=== PATIENT | male | born 1965 | race Caucasian/White ===

== ENCOUNTER 2019-12-14 23:02 | Inpatient (IN) | payer MEDICAID, SELFPAY ==
[2019-12-14 23:15] VITALS: BP 135/86; PULSE 85; RESP 22; TEMP 36.8; O2SAT 2; BMI 25.8
[2019-12-14 23:28] VITALS: O2SAT 90
--- NOTE | 2019-12-14 23:28 | PC.NURSE ---
PT REPORTING SOB FOR MONTHS- ON HOME 02 BUT HAS NOT HAD IT SINCE COVID PANDEMIC BEGAN, UNABLE TO GET DOCTORS APPOINTMENTS AND EVERYTHING IS MESSED UP PER PT REPORT. ALSO STATING NOT TAKING ANY OF HIS PRESCRIBED MEDS FOR MONTHS WELL. REPORTS FEVER/CHILLS FOR YEARS- ITS ALWAYS LIKE THIS SOB, RIGHT SIDED ABD PAIN VAGUE DETAILS. SKIN AND SCLERA VERY JAUNDICED.
--- NOTE | 2019-12-14 23:30 | PC.NURSE ---
UNABLE TO OBTAIN IV ACCESS- 2 RNS AND US GUIDED. MD PRUETT AWARE AWAITING EJ PLACEMENT. PT REPORTING HEADACHE NOW STATES GOING ON FOR A WHILE
--- NOTE | 2019-12-14 23:30 | ED.SOB ---
HPI - SOB/Dyspnea General Chief Complaint: Dyspnea Stated Complaint: Sob Time Seen by Provider: 12/14/19 23:30 History of Present Illness HPI Narrative: This is a 54-year-old male with significant past medical history of IVDA, COPD, hep C treatment who presents for worsening shortness of breath, fatigue, and weakness for the past 2 months and states he has not been taking any of his medications. when asked about the yellow color of his skin and his eyes he states that he has not noticed because he can barely stand to look in the mirror let alone notice what color his skin is . He states he has been having chills and that his right side of his abdomen is painful and is causing a lot of pressure. In addition, patient reports a decrease in appetite but denies any diarrhea or urinary symptoms. Related Data Home Medications Medication Instructions Recorded Confirmed Unobtainable 12/15/19 12/15/19 Allergies Allergy/AdvReac Type Severity Reaction Status Date / Time No Known Allergies Allergy Verified 12/14/19 23:31 Review of Systems Review of Systems: Pertinent positives and negatives as stated in HPI 10 point review systems is otherwise negative. [facility] Past Medical History Source: nursing notes reviewed Medical History COPD (chronic obstructive pulmonary disease) Hx of hepatitis C Hx of hypertensive heart disease Social History Social History Alcohol intake: never Smoking Status: Current every day smoker Advance Directives: No Advance Directives Information Provided: No Physical Exam Vital Signs: Vital Signs: Vital Signs Temp Pulse Resp BP Pulse Ox 12/15/19 03:39 90 38 H 115/93 H 96 12/15/19 01:33 97.9 F 94 22 H 182/78 H 89 L 12/14/19 23:28 90 L 12/14/19 23:15 98.3 F 85 22 H 135/86 2 L Body Mass Index 25.8 VITAL SIGNS: Reviewed. GENERAL: Appears older than stated age, mild cachexia, moderate distress. HEAD: Normocephalic/atraumatic, EYES: PERRLA, EOMI intact without pain, no nystagmus/pallor, +icterus noted EARS: Ext canals without abnormality, TMs non-bulging and non-erythematous NOSE: Nares patent bilateral OROPHARYNX: no oral lesions noted, posterior pharynx clear and non-erythematous without noted tonsillar enlargement/erythema/exudates NECK: Supple, no adenopathy LUNGS: decrease breath sounds on the left without auscultated wheezing. No adventitious sounds or accessory muscle use. SpO2<89%RA> CARDIOVASCULAR: Regular rate and rhythm without noted murmurs, no JVD or lower extremity edema. ABDOMEN: Soft, right-sided tenderness, non-distended with decreased bowel sounds. No rigidity. No guarding. No palpable masses or hernias noted MUSCULOSKELETAL: No tenderness, deformities, or effusions noted on gross inspection. EXTREMITIES: No cyanosis, clubbing or edema. SKIN: Inspection of the skin reveals no rashes, ulcerations, pallor, or petechiae. +jaundice NEUROLOGIC: Alert and oriented x 4. Strength and sensation to light touch were grossly intact Course Course Course Narrative: This is a 54-year-old male with history and clinical presentation suggestive of possible pneumonia, or intra-abdominal infection and was approached as a sepsis patient with labs, fluids, antibiotics, blood cultures, and lactic acid being ordered. On review of all investigations there is a significant leukocytosis as well as a hyperbilirubinemia with a chest x-ray reporting bilateral infiltrates, but significant changes noted in the left lung as well as multiple lesions noted within the liver. Patient is oxygenating at approximately 96-97% on 100% non-rebreather. On review of CT imaging there is conflict, masslike soft tissue density involving the right hilum /mediastinum with mass effect on the SVC and proximal vessels of the right lung. In addition, there is extensive metastatic disease in the liver with periportal lymphadenopathy. The results of the CT findings were discussed with the patient at bedside. This case was discussed with the inpatient hospitalist team who will admit the patient. MDM - SOB/Dyspnea Lab Data Result diagrams: 12/15/19 00:17 12/15/19 00:17 Labs: Lab Results 12/15/19 12/15/19 12/15/19 Range/Units 00:17 00:17 00:17 WBC 16.8 H (4.8-10.8) X10*3/uL RBC 4.18 L (4.60-5.80) X10*6/uL Hgb 13.2 L (14.0-18.0) g/dl Hct 38.6 L (42-52) % MCV 92.3 (80-98) fL MCH 31.6 (27.0-33.0) pg MCHC 34.2 (31.0-36.0) g/dl RDW 18.0 H (11.0-16.0) % Plt Count 249 (160-400) X10*3/uL MPV 11.1 (9.4-12.4) fL Immature Gran % (Auto) 1.7 H (0.0-0.4) % Neut % (Auto) 86.8 H (45-73) % Lymph % (Auto) 5.1 L (20-40) % [place] % (Auto) 6.1 (2-11) % Eos % (Auto) 0.1 (0-4) % Baso % (Auto) 0.2 (0-2) % Lymph # (Auto) 0.9 L (1.2-4.9) X10*3/uL [place] # (Auto) 1.0 (0.1-1.2) X10*3/uL Eos # (Auto) 0.0 (0.0-0.4) X10*3/uL Baso # (Auto) 0.0 (0.0-0.2) X10*3/uL Abs Immat Gran (auto) 0.28 H (0.00-0.03) X10*3/uL Absolute Neuts (auto) 14.6 H (2.0-8.3) X10*3/uL Absolute Nucleated RBC 0.030 H (0.0-0.012) X10*3/uL Nucleated RBC % (auto) 0.2 (0.0-0.2) /100WBC ABG pH (7.35-7.45) ABG pCO2 (32-45) mmhg ABG pO2 (83-108) mmhg ABG HCO3 (22-26) mmol/l ABG O2 Saturation % ABG Base Excess Oxygen Given Sodium 136 (135-145) mmol/L Potassium 4.2 (3.3-5.1) mmol/l Chloride 100 (96-108) mmol/L Carbon Dioxide 22 (22-29) mmol/L Anion Gap 18 (12-20) BUN 26 H (9-16) mg/dL Creatinine 0.83 (0.5-1.4) mg/dL Estim Creat Clear Calc 153.2 Estimated GFR > 60 Random Glucose 248 H (60-115) mg/dL Lactic Acid 2.7 H* (0.5-2.0) mmol/L Calcium 8.3 L (8.4-10.2) mg/dL Total Bilirubin 9.9 H (0.0-1.0) mg/dL AST 71 H (5-37) U/L ALT 66 H (0-40) U/L Alkaline Phosphatase 443 H (39-117) U/L Total Protein 5.7 L (6.5-8.0) g/dL Albumin 3.1 L (3.5-5.0) g/dL Lipase 7 L (8-78) U/L Coronavirus (PCR) (Negative) 12/15/19 12/15/19 Range/Units 01:29 01:35 WBC (4.8-10.8) X10*3/uL RBC (4.60-5.80) X10*6/uL Hgb (14.0-18.0) g/dl Hct (42-52) % MCV (80-98) fL MCH (27.0-33.0) pg MCHC (31.0-36.0) g/dl RDW (11.0-16.0) % Plt Count (160-400) X10*3/uL MPV (9.4-12.4) fL Immature Gran % (Auto) (0.0-0.4) % Neut % (Auto) (45-73) % Lymph % (Auto) (20-40) % [place] % (Auto) (2-11) % Eos % (Auto) (0-4) % Baso % (Auto) (0-2) % Lymph # (Auto) (1.2-4.9) X10*3/uL [place] # (Auto) (0.1-1.2) X10*3/uL Eos # (Auto) (0.0-0.4) X10*3/uL Baso # (Auto) (0.0-0.2) X10*3/uL Abs Immat Gran (auto) (0.00-0.03) X10*3/uL Absolute Neuts (auto) (2.0-8.3) X10*3/uL Absolute Nucleated RBC (0.0-0.012) X10*3/uL Nucleated RBC % (auto) (0.0-0.2) /100WBC ABG pH 7.45 (7.35-7.45) ABG pCO2 28 L (32-45) mmhg ABG pO2 54 L (83-108) mmhg ABG HCO3 19 L (22-26) mmol/l ABG O2 Saturation 87.9 % ABG Base Excess -3.5 Oxygen Given 4 L Sodium (135-145) mmol/L Potassium (3.3-5.1) mmol/l Chloride (96-108) mmol/L Carbon Dioxide (22-29) mmol/L Anion Gap (12-20) BUN (9-16) mg/dL Creatinine (0.5-1.4) mg/dL Estim Creat Clear Calc Estimated GFR Random Glucose (60-115) mg/dL Lactic Acid (0.5-2.0) mmol/L Calcium (8.4-10.2) mg/dL Total Bilirubin (0.0-1.0) mg/dL AST (5-37) U/L ALT (0-40) U/L Alkaline Phosphatase (39-117) U/L Total Protein (6.5-8.0) g/dL Albumin (3.5-5.0) g/dL Lipase (8-78) U/L Coronavirus (PCR) NEGATIVE (Negative) ECG Data Attestation: I personally reviewed and interpreted this ECG as follows: Prior ECG tracings: available for review Interpretation: NSR, HR-74, no evidence of ischemia Discharge Plan Discharge Clinical Impression: Abdominal malignancy, Hypoxia Lung malignancy Qualifiers: Laterality: unspecified laterality Lung location: overlapping sites Qualified Code(s): C34.80 - Malignant neoplasm of overlapping sites of unspecified bronchus and lung Sepsis Qualifiers: Sepsis type: sepsis due to unspecified organism Sepsis acute organ dysfunction status: with acute organ dysfunction Severe sepsis acute organ dysfunction type: acute respiratory failure Acute respiratory failure type: with hypoxia Severe sepsis shock status: without septic shock Qualified Code(s): A41.9 - Sepsis, unspecified organism Patient Disposition: Admitted As Inpatient
--- NOTE | 2019-12-14 23:32 | XR_ITS ---
EXAMINATION: XR CHEST CLINICAL INFORMATION: Dyspnea COMPARISON: None TECHNIQUE: 2 views of the chest were obtained. FINDINGS: This exam is abnormal. There is opacity in the left lung Field parahilar extending into the lung zone. There is also small right-sided lateral opacity and perihilar opacities well. There is no effusion. No convincing evidence for failure IMPRESSION: Bilateral opacities left greater than right. Findings suggest infiltrates. Right hilar prominence may be due to parahilar opacity/infiltrate versus central adenopathy.. No effusion. Consider CT to fully evaluate
--- NOTE | 2019-12-14 23:33 | ECG_ITS ---
Test Reason : SOB Blood Pressure : / mmHG Vent. Rate : 074 BPM Atrial Rate : 074 BPM P-R Int : 130 ms QRS Dur : 086 ms QT Int : 394 ms P-R-T Axes : -21 -21 051 degrees QTc Int : 437 ms Normal sinus rhythm Low voltage QRS limb leads Nonspecific ST abnormality Abnormal ECG When compared with ECG of 06-SEP-2007 14:39, T wave amplitude has decreased in Lateral leads Heart rate has increased Referred By: Donna Oropeza Electronically Signed By:AL SMITH MD
[2019-12-14] MEDS: Albuterol/Iprat 2.5/0.5MG 3 ML AMPUL.NEB INHALE (23:54)
[2019-12-15] VITALS (25 sets, daily range): BP systolic 106–212; BP diastolic 60–108; PULSE 73–115; RESP 18–45; TEMP 36.2–37.4; O2SAT 88–98; BMI 25.9; BMI 28.2
--- NOTE | 2019-12-15 | XR_ITS ---
EXAMINATION: XR CHEST CLINICAL INFORMATION: Status post ET tube placement COMPARISON: Multiple CT scans of same day and chest x-ray of December 15, 2019 as well as. TECHNIQUE: AP portable view of the chest was obtained. FINDINGS: Since previous study endotracheal tube has been placed with its tip lying approximately 3 cm above the saul. There is increased airspace disease seen throughout the right lung which is more prominent than on the previous chest x-ray but appears probably similar to CT scan of of approximately 2:00 AM. The endotracheal tube tip does not appear to lie in a position that would obstruct the left mainstem bronchus. No pneumothorax is seen. Heart normal size. No evidence of pulmonary edema. Soft tissue density seen involving the right paratracheal and hilar regions. IMPRESSION: Endotracheal tube tip approximately 3 cm above the saul. Increasing diffuse airspace disease within the left lung. Right mediastinal soft tissue prominence.
--- NOTE | 2019-12-15 00:01 | PC.NURSE ---
PT OFF FLOOR TO CXRAY
[2019-12-15 00:26] LABS: Basophils Percent Auto 0.2 % (0-2); Eosinophils Percent Auto 0.1 % (0-4); Hematocrit 38.6 % (42-52); Hemoglobin 13.2 g/dl (14.0-18.0); Imm Gran Abs Auto 0.28 X10*3/uL (0.00-0.03); Imm Gran Pct Auto 1.7 % (0.0-0.4); Lymphocytes Absolute Auto 0.9 X10*3/uL (1.2-4.9); Lymphocytes Percent Auto 5.1 % (20-40); MANUAL DIFF FLAG NO; Mean Corpuscular HGB Conc 34.2 g/dl (31.0-36.0); Mean Corpuscular Hemoglobin 31.6 pg (27.0-33.0); Mean Corpuscular Volume 92.3 fL (80-98); Mean Platelet Volume 11.1 fL (9.4-12.4); Monocytes Percent Auto 6.1 % (2-11); NRBC Pct Auto 0.2 /100WBC (0.0-0.2); Neutrophils Absolute Auto 14.6 X10*3/uL (2.0-8.3); Neutrophils Percent Auto 86.8 % (45-73); Platelet Count 249 X10*3/uL (160-400); Red Blood Count 4.18 X10*6/uL (4.60-5.80); White Blood Count 16.8 X10*3/uL (4.8-10.8)
--- NOTE | 2019-12-15 00:29 | PC.NURSE ---
IV ACCESS OBTAINED. MEDICATED PER APR. PT REMAINS JAUNDICED AND TACHYPNEIC. REPORTING RIGHT SIDED ABD PAIN. TENDER TO TOUCH. AWAITING RESULTS AND POSSIBLE ADMISSION.
[2019-12-15] MEDS: methylPREDNISolone Sod Succ/PF 125 MG/2 ML VIAL IVPUSH (00:48)
[2019-12-15 00:53] LABS: Alanine Aminotransferase 66 U/L (0-40); Albumin Level 3.1 g/dL (3.5-5.0); Alkaline Phosphatase 443 U/L (39-117); Anion Gap 18 (12-20); Aspartate Amino Transferase 71 U/L (5-37); Bilirubin Total 9.9 mg/dL (0.0-1.0); Blood Urea Nitrogen 26 mg/dL (9-16); Calcium 8.3 mg/dL (8.4-10.2); Carbon Dioxide 22 mmol/L (22-29); Chloride 100 mmol/L (96-108); Creatinine Clr Calc Pharmacy 153.2; Estimated Glomerular Filt Rate > 60; Glucose Random 248 mg/dL (60-115); Lipase 7 U/L (8-78); Potassium 4.2 mmol/l (3.3-5.1); Sodium 136 mmol/L (135-145); Total Protein 5.7 g/dL (6.5-8.0)
--- NOTE | 2019-12-15 00:54 | CT_ITS ---
EXAMINATION: CONTRAST-ENHANCED CT OF THE CHEST; CONTRAST-ENHANCED CT OF THE ABDOMEN AND PELVIS INDICATION: Dyspnea, infiltrates, abdominal pain COMPARISON: Chest x-ray 12/15/2019 TECHNIQUE: 85 mL Omnipaque 350 IV contrast was utilized. Multidetector helical imaging was performed through the chest, abdomen, and pelvis. Coronal and sagittal reformatted images were created at the technologist workstation. DLP: 950 mGy-cm DOSE LOWERING TECHNIQUES: This CT examination was performed using dose optimization techniques as appropriate, variously including the following: - Automated exposure control - Adjustment of mA and/or kV according to patient size (this includes techniques or standardized protocols for targeted exams were dose is matched to indication/reason for exam; i.e. extremities or head) - Use of iterative reconstruction technique FINDINGS: Chest: Limited detailed evaluation of the lung parenchyma due to respiratory motion artifact. There is extensive heterogeneous groundglass consolidation throughout the left lung. There is confluent masslike soft tissue density involving the right hilum which appears contiguous with the superior left lower lobe as well as mediastinal adenopathy in the paratracheal, subcarinal, and prevascular regions. AP window lymphadenopathy is also noted. Given the irregular shape, this is difficult to discretely measure; in the axial plane on image 24/62 the extent of soft tissue measures approximately 11.5 x 7.8 cm. AP window lymphadenopathy measures 2.4 x 1.5 cm. Overall appearance is most consistent with malignancy There is mass effect on the SVC which demonstrates narrowing though the vessel appears to remain patent. There is mass effect on the central pulmonary vasculature of the right lung, with inadequate assessment for possible emboli due to bolus timing. Cardiac size is within normal limits; no pericardial effusion. The visualized thyroid gland is unremarkable. No axillary lymphadenopathy is present. Abdomen/Pelvis: There are innumerable mildly hypoattenuating masses throughout the enlarged liver, favoring metastatic disease. Largest of these lesions appear to measure up to approximately 6 cm. The gallbladder appears partially contracted. The spleen, pancreas, and adrenal glands are within normal limits. Bilateral nephrograms are symmetric. No hydronephrosis. No obstructing renal or ureteral calculi are present. The urinary bladder is unremarkable. The prostate and seminal vesicles are unremarkable. The small and large bowel are unremarkable without evidence of obstruction or pericolonic inflammatory change. The appendix is unremarkable.There is a small amount of pelvic free fluid. Scattered atherosclerotic calcifications. There is periportal lymphadenopathy. No acute osseous findings. IMPRESSION: 1. Confluent, masslike soft tissue density involving the right hilum, adjacent mediastinum, and likely superior right lower lobe as described above. Appearance is most consistent with malignancy and jimi metastases. There is mass effect on the SVC and proximal vessels of the the right lung. 2. Extensive metastatic disease in the liver. 3. Periportal lymphadenopathy. 4. Extensive heterogeneous groundglass opacity of the left lung, which could be secondary to infection or asymmetric edema. 5. Small amount of pelvic free fluid.
[2019-12-15 00:56] LABS: Lactic Acid 2.7 mmol/L (0.5-2.0)
[2019-12-15] MEDS: Albuterol/Iprat 2.5/0.5MG 3 ML AMPUL.NEB INHALE ×5 (01:12→19:22)
--- NOTE | 2019-12-15 01:15 | PC.NURSE ---
PT VOMITING BILIOUS LIQUID. MD NOTIFIED AWAITING ORDER FOR ZOFRAN.
[2019-12-15] MEDS: Piperacillin Sodium/Tazobactam 3.375 GM in 0.9 % Sodium Chloride 50 ML IV ×4 (01:21→18:48)
[2019-12-15] MEDS: SODIUM CHLORIDE 1000 ML IV (01:22)
--- NOTE | 2019-12-15 01:30 | PC.NURSE ---
PT SWABBED FOR COVID SPECIMEN SENT TO LAB. IVF AND ABX HUNG AND INFUSING WITHOUT DIFFICULTY. RT AT BEDSIDE FOR NEB RX AND ABGS. PT REMAINS TACHYPNEIC, FREQUENTLY CHANGING POSITIONS FOR COMFORT AND EASE OF BREATHING.
--- NOTE | 2019-12-15 01:47 | PC.NURSE ---
PT STATES HE HAS NOT TAKEN HIS PRESCRIBED MEDS IN MONTHS- WILL NOT LIST PRESCRIPTION MEDS FOR RN.
[2019-12-15 01:54] LABS: Pt Ventilation O2% 4 L
[2019-12-15 01:55] LABS: ABG PCO2 28 mmhg (32-45); Base Excess ABG -3.5; HCO3 ABG 19 mmol/l (22-26); PO2 ABG 54 mmhg (83-108); pH ABG 7.45 (7.35-7.45)
[2019-12-15 01:56] LABS: Oxygen Saturation ABG 87.9 %
--- NOTE | 2019-12-15 02:00 | PC.NURSE ---
PT OFF TO CT.
[2019-12-15 02:23] LABS: Reflex Lactate? Lactic Acid Added
[2019-12-15] MEDS: iohexoL 350 MG/ML 100 ML INFUS..BTL 85 ML IV (02:29)
[2019-12-15 02:34] LABS: SARS COV2 PCR INHOUSE NEGATIVE (Negative)
--- NOTE | 2019-12-15 03:41 | PC.NURSE ---
OFFERED PT TO CHANGE INTO HOSPITAL ATTIRE PT HAS BEEN TOPLESS FOR ENTIRE STAY THUS FAR, PT REFUSED. GIVEN ADDITIONAL WARM BLANKETS AND ICE CHIPS. SITTING UP IN BED WITH HEAD ON HOSPITAL TABLE, REPORTS POSITION OF COMFORT FOR HIM. NSR ON WIRE SPOOLER, REMAINS TACHYPNEIC, SPO2 96% ON NON REBREATHER.AWAITING ADMISSION AWARE OF PLAN OF CARE.
--- NOTE | 2019-12-15 03:57 | PC.NURSE ---
HOSPITALIST AT BEDSIDE FOR CONSULT. AWAITING BED ASSIGNMENT.
--- NOTE | 2019-12-15 04:36 | PM.IMHP ---
History of Present Illness Date of Service: 12/15/19 Chief Complaint: Dyspnea 34-year-old male whose past medical history of COPD And hep C who presents to the hospital with complaints of dyspnea. Patient reports that he has been feeling short of breath for Months as well as having abdominal pain nausea and vomiting. Patient reports that he has been so weak that he was on been on able to get out of bed with low appetite and low p.o. intake. He is significantly constipated. Patient's belly pain is in the right upper quadrant nonradiating has no fever or chills. he is also complaining of urinary retention as well as urgency. patient denies any cough or sputum production at this time. on arrival to the ED patient hemodynamically stable with a respiratory rate of 22 and satting 89% on room air. Labs are significant for WBC count of 16.8, pH of 7.45, artery of pCO2 of 28, lactic acid of 2.7, calcium of 8.3, total bili of 9.9, AST of 71 ALT of 66, alk-phos of 443 past medical history: COPD, hepatitis-C, patient claims was treated, IV drug user past surgical history: is mostly orthopedic surgery family history: Denies social history: Comes from home, former smoker reports that he has quit few months ago due to out of is going on with his body right now, denies alcohol use, smokes heroin daily Review of Systems Review of Systems: Yes all other systems are reviewed and are negative [facility] Medical History COPD (chronic obstructive pulmonary disease) Hx of hepatitis C Hx of hypertensive heart disease Social History Alcohol intake: never Smoking Status: Current every day smoker Advance Directives: No Advance Directives Information Provided: No Meds Allergies Allergy/AdvReac Type Severity Reaction Status Date / Time No Known Allergies Allergy Verified 12/14/19 23:31 Home Medications Medication Instructions Recorded Confirmed Type Unobtainable 12/15/19 12/15/19 History Physical Exam Vital Signs and Narrative: Vital Signs: Last Vital Signs Temp 97.9 F 12/15/19 01:33 Pulse 90 12/15/19 03:39 Resp 38 H 12/15/19 03:39 BP 115/93 H 12/15/19 03:39 Pulse Ox 96 12/15/19 03:39 Body Mass Index 25.8 Const: General: cooperative, no acute distress, ill appearing and tired appearing Nutritional Appearance: cachectic Orientation/consciousness: patient oriented x3 Eyes: General: appearance normal, both eyes and all related structures Pupils: Equal, round and reactive pupils present Resp: Other: tachypnea Effort & Inspection: able to speak in complete sentences Auscultation: crackles Cardio: Rate: regular rate Rhythm: regular rhythm GI: Palpation (GI): Soft to palpation Auscultation: normal bowel sounds Skin: General skin exam: no rashes or lesions noted and jaundice Neuro: General: patient oriented x3 Cranial nerves: Yes Equal, round and reactive pupils present Cognition (Neuro): normal cognition Extrem: General: Yes normal to inspection and Yes no pedal edema Results Labs Labs: Laboratory Tests 12/15/19 12/15/19 12/15/19 00:17 00:17 00:17 WBC 16.8 H RBC 4.18 L Hgb 13.2 L Hct 38.6 L MCV 92.3 MCH 31.6 MCHC 34.2 RDW 18.0 H Plt Count 249 MPV 11.1 Immature Gran % (Auto) 1.7 H Neut % (Auto) 86.8 H Lymph % (Auto) 5.1 L [place] % (Auto) 6.1 Eos % (Auto) 0.1 Baso % (Auto) 0.2 Lymph # (Auto) 0.9 L [place] # (Auto) 1.0 Eos # (Auto) 0.0 Baso # (Auto) 0.0 Abs Immat Gran (auto) 0.28 H Absolute Neuts (auto) 14.6 H Absolute Nucleated RBC 0.030 H Nucleated RBC % (auto) 0.2 ABG pH ABG pCO2 ABG pO2 ABG HCO3 ABG O2 Saturation ABG Base Excess Oxygen Given Sodium 136 Potassium 4.2 Chloride 100 Carbon Dioxide 22 Anion Gap 18 BUN 26 H Creatinine 0.83 Estim Creat Clear Calc 153.2 Estimated GFR > 60 Random Glucose 248 H Lactic Acid 2.7 H* Calcium 8.3 L Total Bilirubin 9.9 H AST 71 H ALT 66 H Alkaline Phosphatase 443 H Total Protein 5.7 L Albumin 3.1 L Lipase 7 L Coronavirus (PCR) 12/15/19 12/15/19 01:29 01:35 WBC RBC Hgb Hct MCV MCH MCHC RDW Plt Count MPV Immature Gran % (Auto) Neut % (Auto) Lymph % (Auto) [place] % (Auto) Eos % (Auto) Baso % (Auto) Lymph # (Auto) [place] # (Auto) Eos # (Auto) Baso # (Auto) Abs Immat Gran (auto) Absolute Neuts (auto) Absolute Nucleated RBC Nucleated RBC % (auto) ABG pH 7.45 ABG pCO2 28 L ABG pO2 54 L ABG HCO3 19 L ABG O2 Saturation 87.9 ABG Base Excess -3.5 Oxygen Given 4 L Sodium Potassium Chloride Carbon Dioxide Anion Gap BUN Creatinine Estim Creat Clear Calc Estimated GFR Random Glucose Lactic Acid Calcium Total Bilirubin AST ALT Alkaline Phosphatase Total Protein Albumin Lipase Coronavirus (PCR) NEGATIVE Imaging CT scan - chest: Radiologist's impression: IMPRESSION: 1. Confluent, masslike soft tissue density involving the right hilum, adjacent mediastinum, and likely superior right lower lobe as described above. Appearance is most consistent with malignancy and jimi metastases. There is mass effect on the SVC and proximal vessels of the the right lung. 2. Extensive metastatic disease in the liver. 3. Periportal lymphadenopathy. 4. Extensive heterogeneous groundglass opacity of the left lung, which could be secondary to infection or asymmetric edema. 5. Small amount of pelvic free fluid. Assessment and Plan (1) Sepsis: Qualifiers: Acute respiratory failure type: with hypoxia Sepsis acute organ dysfunction status: with acute organ dysfunction Sepsis type: sepsis due to unspecified organism Severe sepsis acute organ dysfunction type: acute respiratory failure Severe sepsis shock status: without septic shock Qualified Code(s): A41.9 - Sepsis, unspecified organism; R65.20 - Severe sepsis without septic shock; J96.01 - Acute respiratory failure with hypoxia Status: Acute (2) Abdominal malignancy: Status: Acute (3) Hypoxia: Status: Acute (4) Lung malignancy: Qualifiers: Laterality: unspecified laterality Lung location: overlapping sites Qualified Code(s): C34.80 - Malignant neoplasm of overlapping sites of unspecified bronchus and lung Status: Acute (5) Transaminitis: Status: Acute (6) COPD (chronic obstructive pulmonary disease): Status: Acute this is a 54-year-old male who presents to the hospital with dyspnea found to have malignant appearing mass in the lungs as well as metastatic liver disease # sepsis - source most likely lung verses urine versus a combination above - patient has leukocytosis, afebrile, hypoxia - CT scan showing infiltrate concerning for infection - patient is also complaining of urgency and retention - blood pressure stable Plan: - Given as patient has extensive cancer of the lung will start him on broad-spectrum antibiotic of Zosyn and vancomycin - will order UA to rule out urinary tract infection - blood cultures drawn in the ED will follow results # acute hypoxic respiratory - patient presented with an oxygen saturation of 89% on room air - most likely secondary to the lung disease that he has currently which include cancer as well as infiltrate/pneumonia - currently on non-rebreather satting 96% although patient is still tachypneic plan: - IV antibiotics, continue oxygen supplementation with a goal to titrate down - morphine for respiratory distress - poor prognosis # malignancy of the lung and and liver - primary to the lung with metastasis to the liver - CT findings as above Plan: - Will consult Hematology-Oncology # transaminitis - secondary to liver cancer - follows LFTs # lactic acidosis - most likely secondary to acute infection versus hypoxia - will start him on IV fluids and lactic acid # COPD - Although has dyspnea patient does not have a cough or sputum production less likely to be in COPD exacerbation - will continue DuoNeb p.r.n. and scheduled, no wheezing appreciated therefore no need for Solu-Medrol DVT prophylaxis: Heparin date of service 12/15/2019
[2019-12-15] MEDS: Morphine Sulfate 4 MG/ML CARTRIDGE IVPUSH ×4 (04:42→13:06)
--- NOTE | 2019-12-15 04:47 | PC.NURSE ---
PT MEDICATED FOR PAIN PER APR. PHLEBOTOMY AT BEDSIDE FOR REPEAT LACTIC. AWAITING BED ASSIGNMENT.
[2019-12-15 04:50] LABS: Glucose Urine UA 250 MG/DL (NEG); Leukocyte Esterase Urine NEG (NEG); Nitrite Urine POS (NEG); Specific Gravity - Urine >= 1.030 (1.005-1.025); Urine Blood TRACE (NEG); Urine Ketones 15 MG/DL (NEG); Urine Protein 1+ MG/DL (NEG-TRACE)
[2019-12-15 04:51] LABS: Appearance Urine TURBID; Color Urine BROWN
[2019-12-15 04:56] LABS: RBC Urine 0-2 /HPF (0); WBC Urine 0-2 /HPF (0-4)
[2019-12-15 04:57] LABS: Amorphous Sediment Urine 4+ /LPF
[2019-12-15 05:30] LABS: ~Lactic Acid-LAB USE ONLY 3.5 mmol/L (0.5-2.0)
--- NOTE | 2019-12-15 05:43 | PC.NURSE ---
REPORT GIVEN TO RENA SAGASTUME, PT AWAITING TRANSPORT TO FLOOR. LATE ENTRY- THIS RN SPOKE WITH PT - UPDATED TO PLAN OF CARE AND ROOM ASSIGNMENT. TO CALL IN AM FOR UPDATE, [facility] # PROVIDED.
[2019-12-15] MEDS: ondansetron HCL 4 MG/2 ML VIAL IVPUSH ×2 (06:23→12:59)
[2019-12-15] MEDS: Lactated Ringers 1,000 ML 100 ML IVCONT (06:38)
[2019-12-15 07:19] LABS: Reflex Lactate? 2 Y
[2019-12-15] MEDS: Heparin Sodium,Porcine 5,000 UNIT/ML VIAL 5000 UNIT SUBCUT ×2 (07:57→18:48)
[2019-12-15] MEDS: 0.9 % Sodium Chloride Flush 3 ML SYRINGE IVFLUSH ×3 (07:57→23:47)
[2019-12-15] MEDS: Lactated Ringers 1,000 ML 999 ML IVCONT ×2 (08:48→15:00)
[2019-12-15 09:12] LABS: INTERNATIONAL NORM RATIO 1.7 (0.9-1.1); Prothrombin Time 20.8 SEC (10.8-13.0)
[2019-12-15 09:27] LABS: ~Lactic Acid-LAB USE ONLY 2.2 mmol/L (0.5-2.0)
[2019-12-15 09:28] LABS: B Type Natriuretic Peptide 65 pg/mL (<100)
[2019-12-15 09:43] LABS: Bilirubin Direct 8.2 mg/dL (0.0-0.5)
[2019-12-15 10:02] LABS: Procalcitonin 5.28 ng/mL
[2019-12-15] MEDS: Phytonadione (Vit K1) Oral 10 MG/ML AMPUL PO (10:34)
[2019-12-15] MEDS: vancomycin HCL 1,000 MG in 0.9 % Sodium Chloride 250 ML 180 MG IV (10:39)
--- NOTE | 2019-12-15 11:12 | PM.GICN ---
History of Present Illness Data of Consult Service Date: 12/15/19 <Tati Barrios MD - Last Filed: 12/15/19 11:18> Requesting physician: David Rocha <Tati Barrios MD - Last Filed: 12/15/19 11:18> Primary Care Provider: Unknown Physician <Tati Barrios MD - Last Filed: 12/15/19 11:18> HPI Reason for consult: abn LFT <Tati Barrios MD - Last Filed: 12/15/19 11:18> 34-year-old male w/ past medical history of COPD And hep C who I asked to see for abn lft. presents to the hospital with complaints of dyspnea. Patient reports that he has been feeling short of breath for Months as well as having abdominal pain nausea and vomiting. Patient reports that he has been so weak that he was on been on able to get out of bed with low appetite and low p.o. intake. He is significantly constipated. Patient's belly pain is in the right upper quadrant nonradiating has no fever or chills. he is also complaining of urinary retention as well as urgency. patient denies any cough or sputum production at this time. on arrival to the ED patient hemodynamically stable with a respiratory rate of 22 and satting 89% on room air. Labs are significant for WBC count of 16.8, pH of 7.45, artery of pCO2 of 28, lactic acid of 2.7, calcium of 8.3, total bili of 9.9, AST of 71 ALT of 66, alk-phos of 443 past medical history: COPD, hepatitis-C, patient claims was treated, IV drug user past surgical history: is mostly orthopedic surgery family history: Denies social history: Comes from home, former smoker reports that he has quit few months ago due to out of is going on with his body right now, denies alcohol use, smokes heroin daily <Tati Barrios MD - Last Filed: 12/15/19 11:18> PMFSH Past Medical History Medical History: Medical History (Updated 12/15/19 @ 11:48 by Adonis Nuñez MD) COPD (chronic obstructive pulmonary disease) Hx of hepatitis C Hx of hypertensive heart disease <Tati Barrios MD - Last Filed: 12/15/19 11:18> Social History Social History: Social History Household Members: Spouse Housing: Unknown / Unable to assess Do you presently have visiting nurse or other home services: No Alcohol intake: never Smoking Status: Former smoker Use of substances other than those prescribed or required for medical reasons: Yes Substance Use Type: Heroin Substance Use Frequency: Daily Last Used Substance: Hours (ago) Currently Displaying Signs/Symptoms of Drug Intoxication Withdrawal: No Any prior treatment program specific to substance use: No Have you been hit, kicked, punched, or otherwise hurt by someone within the past year? If so, by whom?: No Do you feel safe in your current relationship?: No Is there a partner from a previous relationship who is making you feel unsafe now?: No Are you made to feel afraid or neglected: No Advance Directives: No Advance Directives Information Provided: No Do you have thoughts of harming others: None Recently lost weight without trying: Unsure <Tati Barrios MD - Last Filed: 12/15/19 11:18> Meds Allergies/Adverse reactions: Allergies Allergy/AdvReac Type Severity Reaction Status Date / Time No Known Allergies Allergy Verified 12/14/19 23:31 <Tati Barrios MD - Last Filed: 12/15/19 11:18> Home medications: Home Medications Medication Instructions Recorded Confirmed Type Unobtainable 12/15/19 12/15/19 History <Tati Barrios MD - Last Filed: 12/15/19 11:18> Physical Exam Vital Signs: Vital Signs: Vital Signs Temp Pulse Resp BP Pulse Ox 12/15/19 11:08 92 12/15/19 11:00 92 12/15/19 10:31 45 H 12/15/19 08:06 97.7 F 73 25 H 154/74 H 94 12/15/19 06:33 40 H 12/15/19 06:25 97.1 F 80 40 H 174/81 H 12/15/19 03:39 90 38 H 115/93 H 96 12/15/19 01:33 97.9 F 94 22 H 182/78 H 89 L 12/14/19 23:28 90 L 12/14/19 23:15 98.3 F 85 22 H 135/86 2 L Body Mass Index 25.9 <Tati Barrios MD - Last Filed: 12/15/19 11:18> VITAL SIGNS: Reviewed. GENERAL: Appears older than stated age, mild cachexia, moderate distress. HEAD: Normocephalic/atraumatic, EYES: PERRLA, EOMI intact without pain, no nystagmus/pallor, +icterus noted EARS: Ext canals without abnormality, TMs non-bulging and non-erythematous NOSE: Nares patent bilateral OROPHARYNX: no oral lesions noted, posterior pharynx clear and non-erythematous without noted tonsillar enlargement/erythema/exudates NECK: Supple, no adenopathy LUNGS: decrease breath sounds on the left without auscultated wheezing. No adventitious sounds or accessory muscle use. SpO2<89%RA> CARDIOVASCULAR: Regular rate and rhythm without noted murmurs, no JVD or lower extremity edema. ABDOMEN: Soft, right-sided tenderness, non-distended with decreased bowel sounds. No rigidity. No guarding. No palpable masses or hernias noted MUSCULOSKELETAL: No tenderness, deformities, or effusions noted on gross inspection. EXTREMITIES: No cyanosis, clubbing or edema. SKIN: Inspection of the skin reveals no rashes, ulcerations, pallor, or petechiae. +jaundice NEUROLOGIC: Alert and oriented x 4. Strength and sensation to light touch were grossly intact <Tati Barrios MD - Last Filed: 12/15/19 11:18> Const: General: cooperative, no acute distress, ill appearing and tired appearing <Tati Barrios MD - Last Filed: 12/15/19 11:18> Nutritional Appearance: cachectic <Tati Barrios MD - Last Filed: 12/15/19 11:18> Orientation/consciousness: patient oriented x3 <Tati Barrios MD - Last Filed: 12/15/19 11:18> Eyes: General: appearance normal, both eyes and all related structures <Tati Barrios MD - Last Filed: 12/15/19 11:18> Pupils: Equal, round and reactive pupils present <Tati Barrios MD - Last Filed: 12/15/19 11:18> Resp: Other: tachypnea <Tati Barrios MD - Last Filed: 12/15/19 11:18> Effort & Inspection: able to speak in complete sentences <Tati Barrios MD - Last Filed: 12/15/19 11:18> Auscultation: crackles <Tati Barrios MD - Last Filed: 12/15/19 11:18> Cardio: Rate: regular rate <Tati Barrios MD - Last Filed: 12/15/19 11:18> Rhythm: regular rhythm <Tati Barrios MD - Last Filed: 12/15/19 11:18> GI: Palpation (GI): Soft to palpation <Tati Barrios MD - Last Filed: 12/15/19 11:18> Auscultation: normal bowel sounds <Tati Barrios MD - Last Filed: 12/15/19 11:18> Skin: General skin exam: no rashes or lesions noted and jaundice <Tati Barrios MD - Last Filed: 12/15/19 11:18> Neuro: General: patient oriented x3 <Tati Barrios MD - Last Filed: 12/15/19 11:18> Cranial nerves: Yes Equal, round and reactive pupils present <Tati Barrios MD - Last Filed: 12/15/19 11:18> Cognition (Neuro): normal cognition <Tati Barrios MD - Last Filed: 12/15/19 11:18> Extrem: General: Yes normal to inspection and Yes no pedal edema <Tati Barrios MD - Last Filed: 12/15/19 11:18> Results Labs CBC & Chem 7: : 12/15/19 00:17 12/15/19 00:17 <Tati Barrios MD - Last Filed: 12/15/19 11:18> Labs: Short CBC 12/15/19 Range/Units 00:17 WBC 16.8 H (4.8-10.8) X10*3/uL Hgb 13.2 L (14.0-18.0) g/dl Hct 38.6 L (42-52) % Plt Count 249 (160-400) X10*3/uL BMP 12/15/19 00:17 Sodium 136 Potassium 4.2 Chloride 100 Carbon Dioxide 22 BUN 26 H Creatinine 0.83 Calcium 8.3 L Liver Function 12/15/19 Range/Units 00:17 Total Bilirubin 9.9 H (0.0-1.0) mg/dL Direct Bilirubin 8.2 H (0.0-0.5) mg/dL AST 71 H (5-37) U/L ALT 66 H (0-40) U/L Alkaline Phosphatase 443 H (39-117) U/L Albumin 3.1 L (3.5-5.0) g/dL Urine 12/15/19 Range/Units 04:44 Urine Color BROWN Urine Appearance TURBID Urine pH 5.0 (5.0-8.0) Ur Specific [place] >= 1.030 H (1.005-1.025) Urine Protein 1+ H (NEG-TRACE) MG/DL Urine Glucose (UA) 250 H (NEG) MG/DL <Tati Barrios MD - Last Filed: 12/15/19 11:18> Assessment and Plan (1) Sepsis: Qualifiers: Acute respiratory failure type: with hypoxia Sepsis acute organ dysfunction status: with acute organ dysfunction Sepsis type: sepsis due to unspecified organism Severe sepsis acute organ dysfunction type: acute respiratory failure Severe sepsis shock status: without septic shock Qualified Code(s): A41.9 - Sepsis, unspecified organism; R65.20 - Severe sepsis without septic shock; J96.01 - Acute respiratory failure with hypoxia <Tati Barrios MD - Last Filed: 12/15/19 11:18> Status: Acute <Tati Barrios MD - Last Filed: 12/15/19 11:18> (2) Abdominal malignancy: Status: Acute <Tati Barrios MD - Last Filed: 12/15/19 11:18> (3) Hypoxia: Status: Acute <Tati Barrios MD - Last Filed: 12/15/19 11:18> (4) Lung malignancy: Qualifiers: Laterality: unspecified laterality Lung location: overlapping sites Qualified Code(s): C34.80 - Malignant neoplasm of overlapping sites of unspecified bronchus and lung <Tati Barrios MD - Last Filed: 12/15/19 11:18> Status: Acute <Tati Barrios MD - Last Filed: 12/15/19 11:18> (5) Transaminitis: Status: Acute <Tati Barrios MD - Last Filed: 12/15/19 11:18> (6) COPD (chronic obstructive pulmonary disease): Status: Acute <Tati Barrios MD - Last Filed: 12/15/19 11:18> this is a 54-year-old male who presents to the hospital with dyspnea found to have malignant appearing mass in the lungs as well as metastatic liver disease # sepsis - source most likely lung verses urine versus a combination above - patient has leukocytosis, afebrile, hypoxia - CT scan showing infiltrate concerning for infection - patient is also complaining of urgency and retention - blood pressure stable Plan: - Given as patient has extensive cancer of the lung will start him on broad-spectrum antibiotic of Zosyn and vancomycin - will order UA to rule out urinary tract infection - blood cultures drawn in the ED will follow results # acute hypoxic respiratory - patient presented with an oxygen saturation of 89% on room air - most likely secondary to the lung disease that he has currently which include cancer as well as infiltrate/pneumonia - currently on non-rebreather satting 96% although patient is still tachypneic plan: - IV antibiotics, continue oxygen supplementation with a goal to titrate down - morphine for respiratory distress - poor prognosis # malignancy of the lung and and liver - primary to the lung with metastasis to the liver - CT findings as above Plan: - Will consult Hematology-Oncology # transaminitis - secondary to liver cancer - follows LFTs # lactic acidosis - most likely secondary to acute infection versus hypoxia - will start him on IV fluids and lactic acid # COPD - Although has dyspnea patient does not have a cough or sputum production less likely to be in COPD exacerbation - will continue DuoNeb p.r.n. and scheduled, no wheezing appreciated therefore no need for Solu-Medrol DVT prophylaxis: Heparin date of service 12/15/2019 <Tati Barrios MD - Last Filed: 12/15/19 11:18>
--- NOTE | 2019-12-15 11:43 | PM.HEMONCCN ---
Subjective - Subjective Chief complaint: right hilar mass Patient: new to practice Primary Care Provider: Unknown Physician HPI - Consult Narrative Narrative: Armando Terry is a 54 year old male recentlyh found to have a right hilar mass. He is dyspneic at present and has labored breathing. Review of Systems - Constitutional Reports anorexia, Reports lack of energy, Reports malaise, Reports weakness - Cardiovascular Reports chest pain - Respiratory Reports chest congestion, Reports cough, Reports dyspnea on exertion - Genitourinary Genitourinary: Reports frequent nighttime urination [facility] Medical History: Medical History (Last Updated 12/15/19 @ 04:53 by Abilio Malloy MD) COPD (chronic obstructive pulmonary disease) Hx of hepatitis C Hx of hypertensive heart disease Smoking status: Former smoker Home Medications and Allergies Current Medications: Current Medications Generic Name Dose Route Start Last Admin Trade Name Freq PRN Reason Stop Dose Admin Acetaminophen 650 mg 12/15/19 05:34 Acetaminophen 325 Mg Tablet PO Q6H PRN Pain, Mild (Pain Scale 1-3) Albuterol/Ipratropium 3 ml 12/15/19 08:00 12/15/19 08:16 Albuterol/Iprat 2.5/0.5mg 3 Ml Ampul.Neb INHALE 3 ml RQ4H WHILE AWAKE JING Administration Albuterol/Ipratropium 3 ml 12/15/19 09:53 Albuterol/Iprat 2.5/0.5mg 3 Ml Ampul.Neb INHALE Q2H PRN Shortness of Breath/Wheezing Docusate Sodium 100 mg 12/15/19 09:00 12/15/19 08:54 Docusate Sodium 100 Mg Capsule PO Not Given BID JING Heparin Sodium (Porcine) 5,000 unit 12/15/19 10:15 12/15/19 10:44 Heparin Sodium,Porcine 5,000 Unit/Ml Vial SUBCUT Not Given Q8H JING Lactated Ringer's 1,000 mls @ 100 mls/hr 12/15/19 05:00 12/15/19 06:38 Lr IVCONT 100 mls/hr .Q10H JING Administration Piperacillin Sod/Tazobactam 50 mls @ 100 mls/hr 12/15/19 07:00 12/15/19 08:25 Sod 3.375 gm/ Sodium Chloride IV Infused Q6H JING Infusion Vancomycin HCl 1,000 mg/ 270 mls @ 180 mls/hr 12/15/19 10:00 12/15/19 10:39 Sodium Chloride IV 180 mls/hr Q12H JING Administration Magnesium Hydroxide 30 ml 12/15/19 05:34 Milk Of Magnesia 30 Ml Oral.Susp PO DAILY PRN Constipation Methylprednisolone Sodium Succinate 40 mg 12/15/19 10:00 12/15/19 10:32 Methylprednisolone Sod Succ/Pf 40 Mg/Ml Vial IVPUSH 40 mg Q12H JING Administration Morphine Sulfate 4 mg 12/15/19 10:02 12/15/19 10:31 Morphine Sulfate 4 Mg/Ml Cartridge IVPUSH 4 mg Q2H PRN Administration Pain, Severe (Pain Scale 7-10) Ondansetron HCl 4 mg 12/15/19 05:34 12/15/19 06:23 Ondansetron Hcl 4 Mg/2 Ml Vial IVPUSH 4 mg Q8H PRN Administration Nausea and Vomiting Phytonadione 10 mg 12/15/19 10:00 12/15/19 10:34 Phytonadione (Vit K1) Oral 10 Mg/Ml Ampul PO 12/17/19 09:01 10 mg DAILY JING Administration Sodium Chloride 3 ml 12/15/19 08:00 12/15/19 07:57 0.9 % Sodium Chloride Flush 3 Ml Syringe IVFLUSH 3 ml QSHIFT JING Administration Home Medications Medication Instructions Recorded Confirmed Type Unobtainable 12/15/19 12/15/19 History Allergies Allergy/AdvReac Type Severity Reaction Status Date / Time No Known Allergies Allergy Verified 12/14/19 23:31 Physical Exam Vital signs: Vital Signs Temp 97.7 F 12/15/19 08:06 Pulse 73 12/15/19 08:06 Resp 45 H 12/15/19 10:31 BP 154/74 H 12/15/19 08:06 Pulse Ox 92 12/15/19 11:08 Intake & Output 12/14/19 12/15/19 12/15/19 18:59 06:59 18:59 Intake Total 50 / 50 1050 / 1050 Balance 50 / 50 1050 / 1050 Intake: Intake, IV Amount 50 / 50 1050 / 1050 Piperacillin Sodium/Tazobactam 50 / 50 50 / 50 3.375 gm In 0.9 % Sodium Chloride 50 ml @ 100 mls/hr IV Q6H JING Rx#:[id number] Lactated Ringers 1,000 ml @ 999 1000 / 1000 mls/hr IVCONT .Q1H1M JING Rx#: [id number] Other: Urine Urinal Weight 77.2 kg Weight 77.2 kg - Constitutional Present: mild distress - Routine Respiratory Exam Present: accessory muscle use, decreased breath sounds, prolonged expiratory phase, wheezes - Routine Cardiovascular Exam Cardiovascular: Present: tachycardia Hem/Onc Consult Result - Labs CBC & Chem 7: 12/15/19 00:17 12/15/19 00:17 Labs: Short CBC 12/15/19 Range/Units 00:17 WBC 16.8 H (4.8-10.8) X10*3/uL Hgb 13.2 L (14.0-18.0) g/dl Hct 38.6 L (42-52) % Plt Count 249 (160-400) X10*3/uL BMP 12/15/19 00:17 Sodium 136 Potassium 4.2 Chloride 100 Carbon Dioxide 22 BUN 26 H Creatinine 0.83 Calcium 8.3 L Liver Function 12/15/19 Range/Units 00:17 Total Bilirubin 9.9 H (0.0-1.0) mg/dL Direct Bilirubin 8.2 H (0.0-0.5) mg/dL AST 71 H (5-37) U/L ALT 66 H (0-40) U/L Alkaline Phosphatase 443 H (39-117) U/L Albumin 3.1 L (3.5-5.0) g/dL Urine 12/15/19 Range/Units 04:44 Urine Color BROWN Urine Appearance TURBID Urine pH 5.0 (5.0-8.0) Ur Specific [place] >= 1.030 H (1.005-1.025) Urine Protein 1+ H (NEG-TRACE) MG/DL Urine Glucose (UA) 250 H (NEG) MG/DL Assessment and Plan (1) Lung malignancy Status: Acute Qualifiers: Laterality: unspecified laterality Lung location: overlapping sites Qualified Code(s): C34.80 - Malignant neoplasm of overlapping sites of unspecified bronchus and lung He has a likely pulmonary malignancy. Recommend we aggressively stabilize his breathing and metabolic status then do a bronchoscopy for tissue diagnosis. Suggest consults to pulmonary and thoracic surgery. Will follow.
[2019-12-15 13:01] LABS: Pt Ventilation O2% 100%
[2019-12-15 13:06] LABS: ABG PCO2 41 mmhg (32-45); pH ABG 7.35 (7.35-7.45)
[2019-12-15 13:07] LABS: Base Excess ABG -3.6; HCO3 ABG 22 mmol/l (22-26); Oxygen Saturation ABG 90.5 %; PO2 ABG 63 mmhg (83-108)
[2019-12-15] MEDS: propofoL 1,000 MG/100 ML VIAL 10.12 MG IVCONT (15:00)
--- NOTE | 2019-12-15 15:03 | P.PNIM_ITS ---
Subjective Subjective Date of Service: 12/15/19 Interval History: Short of breath. Got much worse after attempted CT head. Pt confirms he is full code. I updated . SaO2 only 88% on HFNC + NRB. Changed to BiPAP and alerted ICU. Constitutional Constitutional: Reports fatigue, Denies fever(s) and Reports weakness Cardiovascular Cardiovascular: Denies chest pain and Reports dyspnea Respiratory Respiratory: Reports dyspnea Gastrointestinal Gastrointestinal: Denies abdominal pain Neurologic Neurologic: Reports weakness Endocrine Endocrine: Reports fatigue Physical Exam Vital Signs: Vital Signs: Vital Signs Temp Pulse Resp BP Pulse Ox 12/15/19 13:07 36 H 12/15/19 11:08 92 12/15/19 11:00 92 12/15/19 10:31 45 H 12/15/19 08:06 97.7 F 73 25 H 154/74 H 94 12/15/19 06:33 40 H 12/15/19 06:25 97.1 F 80 40 H 174/81 H 12/15/19 03:39 90 38 H 115/93 H 96 12/15/19 01:33 97.9 F 94 22 H 182/78 H 89 L 12/14/19 23:28 90 L 12/14/19 23:15 98.3 F 85 22 H 135/86 2 L Body Mass Index 25.9 Const: General: acute distress respiratory Orientation/consciousness: patient oriented x3 Eyes: Sclerae: scleral abnormal (icteric) bilateral Neck: Neck: Yes supple Resp: Effort & Inspection: abnormal respiratory pattern, respiratory distress and tachypneic Auscultation: rhonchi and wheezes expiratory wheezes Cardio: Rate: regular rate Rhythm: regular rhythm Heart sounds: no murmurs GI: Inspection: Yes normal to inspection Palpation (GI): Soft to palpation and nontender Skin: Other: jaundiced Neuro: General: patient oriented x3 Objective Data Current Medications Generic Name Dose Route Start Last Admin Trade Name Freq PRN Reason Stop Dose Admin Acetaminophen 650 mg 12/15/19 05:34 Acetaminophen 325 Mg Tablet PO Q6H PRN Pain, Mild (Pain Scale 1-3) Albuterol/Ipratropium 3 ml 12/15/19 08:00 12/15/19 12:08 Albuterol/Iprat 2.5/0.5mg 3 Ml Ampul.Neb INHALE 3 ml RQ4H WHILE AWAKE JING Administration Heparin Sodium (Porcine) 5,000 unit 12/15/19 10:15 12/15/19 10:44 Heparin Sodium,Porcine 5,000 Unit/Ml Vial SUBCUT Not Given Q8H JING Piperacillin Sod/Tazobactam 50 mls @ 100 mls/hr 12/15/19 07:00 12/15/19 13:59 Sod 3.375 gm/ Sodium Chloride IV Infused Q6H JING Infusion Vancomycin HCl 1,000 mg/ 270 mls @ 180 mls/hr 12/15/19 10:00 12/15/19 12:21 Sodium Chloride IV Infused Q12H JING Infusion Methylprednisolone Sodium Succinate 40 mg 12/15/19 10:00 12/15/19 10:32 Methylprednisolone Sod Succ/Pf 40 Mg/Ml Vial IVPUSH 40 mg Q12H JING Administration Ondansetron HCl 4 mg 12/15/19 05:34 12/15/19 12:59 Ondansetron Hcl 4 Mg/2 Ml Vial IVPUSH 4 mg Q8H PRN Administration Nausea and Vomiting Phytonadione 10 mg 12/15/19 10:00 12/15/19 10:34 Phytonadione (Vit K1) Oral 10 Mg/Ml Ampul PO 12/17/19 09:01 10 mg DAILY JING Administration Sodium Chloride 3 ml 12/15/19 08:00 12/15/19 07:57 0.9 % Sodium Chloride Flush 3 Ml Syringe IVFLUSH 3 ml QSHIFT JING Administration Labs CBC & Chem 7: 12/15/19 00:17 12/15/19 00:17 Labs: Laboratory Results - last 72 hr 12/15/19 12/15/19 12/15/19 00:17 00:17 00:17 WBC 16.8 H RBC 4.18 L Hgb 13.2 L Hct 38.6 L MCV 92.3 MCH 31.6 MCHC 34.2 RDW 18.0 H Plt Count 249 MPV 11.1 Immature Gran % (Auto) 1.7 H Neut % (Auto) 86.8 H Lymph % (Auto) 5.1 L [place] % (Auto) 6.1 Eos % (Auto) 0.1 Baso % (Auto) 0.2 Lymph # (Auto) 0.9 L [place] # (Auto) 1.0 Eos # (Auto) 0.0 Baso # (Auto) 0.0 Abs Immat Gran (auto) 0.28 H Absolute Neuts (auto) 14.6 H Absolute Nucleated RBC 0.030 H Nucleated RBC % (auto) 0.2 PT INR ABG pH ABG pCO2 ABG pO2 ABG HCO3 ABG O2 Saturation ABG Base Excess Oxygen Given Sodium 136 Potassium 4.2 Chloride 100 Carbon Dioxide 22 Anion Gap 18 BUN 26 H Creatinine 0.83 Estim Creat Clear Calc 153.2 Estimated GFR > 60 Random Glucose 248 H Lactic Acid 2.7 H* Lactic Acid Fup @ 2Hr Lactic Acid Fup @ 4Hr Calcium 8.3 L Total Bilirubin 9.9 H Direct Bilirubin 8.2 H AST 71 H ALT 66 H Alkaline Phosphatase 443 H B-Natriuretic Peptide Total Protein 5.7 L Albumin 3.1 L Lipase 7 L Procalcitonin Urine Color Urine Appearance Urine pH Ur Specific [place] Urine Protein Urine Glucose (UA) Urine Ketones Urine Blood Urine Nitrite Ur Leukocyte Esterase Urine RBC Urine WBC Ur Squamous Epith Cells Amorphous Sediment Urine Bacteria Coronavirus (PCR) 12/15/19 12/15/19 12/15/19 01:29 01:35 04:44 WBC RBC Hgb Hct MCV MCH MCHC RDW Plt Count MPV Immature Gran % (Auto) Neut % (Auto) Lymph % (Auto) [place] % (Auto) Eos % (Auto) Baso % (Auto) Lymph # (Auto) [place] # (Auto) Eos # (Auto) Baso # (Auto) Abs Immat Gran (auto) Absolute Neuts (auto) Absolute Nucleated RBC Nucleated RBC % (auto) PT INR ABG pH 7.45 ABG pCO2 28 L ABG pO2 54 L ABG HCO3 19 L ABG O2 Saturation 87.9 ABG Base Excess -3.5 Oxygen Given 4 L Sodium Potassium Chloride Carbon Dioxide Anion Gap BUN Creatinine Estim Creat Clear Calc Estimated GFR Random Glucose Lactic Acid Lactic Acid Fup @ 2Hr Lactic Acid Fup @ 4Hr Calcium Total Bilirubin Direct Bilirubin AST ALT Alkaline Phosphatase B-Natriuretic Peptide Total Protein Albumin Lipase Procalcitonin Urine Color BROWN Urine Appearance TURBID Urine pH 5.0 Ur Specific [place] >= 1.030 H Urine Protein 1+ H Urine Glucose (UA) 250 H Urine Ketones 15 Urine Blood TRACE Urine Nitrite POS H Ur Leukocyte Esterase NEG Urine RBC 0-2 Urine WBC 0-2 Ur Squamous Epith Cells NONE Amorphous Sediment 4+ Urine Bacteria NONE Coronavirus (PCR) NEGATIVE 12/15/19 12/15/19 12/15/19 04:54 08:45 08:45 WBC RBC Hgb Hct MCV MCH MCHC RDW Plt Count MPV Immature Gran % (Auto) Neut % (Auto) Lymph % (Auto) [place] % (Auto) Eos % (Auto) Baso % (Auto) Lymph # (Auto) [place] # (Auto) Eos # (Auto) Baso # (Auto) Abs Immat Gran (auto) Absolute Neuts (auto) Absolute Nucleated RBC Nucleated RBC % (auto) PT 20.8 H INR 1.7 H ABG pH ABG pCO2 ABG pO2 ABG HCO3 ABG O2 Saturation ABG Base Excess Oxygen Given Sodium Potassium Chloride Carbon Dioxide Anion Gap BUN Creatinine Estim Creat Clear Calc Estimated GFR Random Glucose Lactic Acid Lactic Acid Fup @ 2Hr 3.5 H* Lactic Acid Fup @ 4Hr Calcium Total Bilirubin Direct Bilirubin AST ALT Alkaline Phosphatase B-Natriuretic Peptide 65 Total Protein Albumin Lipase Procalcitonin Urine Color Urine Appearance Urine pH Ur Specific [place] Urine Protein Urine Glucose (UA) Urine Ketones Urine Blood Urine Nitrite Ur Leukocyte Esterase Urine RBC Urine WBC Ur Squamous Epith Cells Amorphous Sediment Urine Bacteria Coronavirus (PCR) 12/15/19 12/15/19 12/15/19 08:45 09:16 12:50 WBC RBC Hgb Hct MCV MCH MCHC RDW Plt Count MPV Immature Gran % (Auto) Neut % (Auto) Lymph % (Auto) [place] % (Auto) Eos % (Auto) Baso % (Auto) Lymph # (Auto) [place] # (Auto) Eos # (Auto) Baso # (Auto) Abs Immat Gran (auto) Absolute Neuts (auto) Absolute Nucleated RBC Nucleated RBC % (auto) PT INR ABG pH 7.35 ABG pCO2 41 ABG pO2 63 L ABG HCO3 22 ABG O2 Saturation 90.5 ABG Base Excess -3.6 Oxygen Given 100% Sodium Potassium Chloride Carbon Dioxide Anion Gap BUN Creatinine Estim Creat Clear Calc Estimated GFR Random Glucose Lactic Acid Lactic Acid Fup @ 2Hr Lactic Acid Fup @ 4Hr 2.2 H* Calcium Total Bilirubin Direct Bilirubin AST ALT Alkaline Phosphatase B-Natriuretic Peptide Total Protein Albumin Lipase Procalcitonin 5.28 Urine Color Urine Appearance Urine pH Ur Specific [place] Urine Protein Urine Glucose (UA) Urine Ketones Urine Blood Urine Nitrite Ur Leukocyte Esterase Urine RBC Urine WBC Ur Squamous Epith Cells Amorphous Sediment Urine Bacteria Coronavirus (PCR) Assessment and Plan (1) Lung malignancy: Status: Acute (2) Hypoxia: Status: Acute Assessment and Plan: hospital d#1 54yo M with hx cured HCV, COPD, tobacco abuse presented with subacute dyspnea admitted with large, confluent mass involving R hilum, mediastinum, superior RLL with mass effect on SVC and proximal R lung vessels; numerous liver metastases; acute hypoxic respiratory failure # acute hypoxic respiratory failure - on BiPAP, high likelihood of needing intubation, bonding machine tender notified, pt's updated and advised to come in # COPD exacerbation - IV steroids, scheduled + prn SHEFALI/SEEMA # severe sepsis - vancomycin + piperacillin/tazobactam for concern superinfection. COVID-19 negative. 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 check abd US for CBD obstruction # VTE ppx - high-risk. on UFH, consider therapeutic anticoagulation if cannot definitely r/o PE
[2019-12-15] MEDS: propofoL 200 MG/20 ML VIAL 150 MG IVPUSH (15:10)
--- NOTE | 2019-12-15 15:18 | PC.NURSE ---
PT WAS DESAT ON ROOM AIR EARLY AFTERNOON, RSP TO ROOM- TRIED TO GIE PT NEBULIZER BUT PT WS DESAT TO 70s SO HE WAS UNABLE TO TOLERATE TREATMENT AT THAT TIME. PT PLACED BACK ON NONREBREATHER BUT TAKING LONG TO RECOVER. KEPT DESATING TO 82-84% RR 30-40s ON NONREBREATHER- MD AND RESP NOTIFIED, PT PLACED ON HI SARA AND ABGS TAKEN - DUE TO PT BEING MOUTH BREATHER PT STILL NOT TOLERATING APPROPRIATELY SAT MID 80s - PT THEN PLACED ON BIPAP AND TXR TO ICU FOR INCREASED CARE. NOTE THAT PT ALSO WAS IN CT AND ULTRASOUND IN AM BUT COULD NOT TOLERATE LAYING DOWN FOR EXAM DUE TO RESP STATUS,
[2019-12-15] MEDS: fentaNYL citrate/NS 1,000 MCG/100 ML PLAST..BAG 2.5 MCG IVCONT (15:30)
[2019-12-15] MEDS: Cisatracurium Besylate 20 MG/10 ML VIAL 10 MG IVPUSH (15:31)
[2019-12-15] MEDS: propofoL 200 MG/20 ML VIAL 50 MG IVPUSH (15:31)
[2019-12-15] MEDS: Midazolam HCl/PF 2 MG/2 ML VIAL IVPUSH ×3 (16:13→23:46)
[2019-12-15] MEDS: Midazolam HCl/NS 50 MG/50 ML PLAST..BAG IVCONT (16:55)
--- NOTE | 2019-12-15 16:56 | P.PNCC_ITS ---
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 Patient initially treated for pneumonia with hospital course complicated by progressive respiratory distress and hypoxia requiring transfer to intensive care unit and intubation. Physical Exam Vital Signs: Vital Signs: Vital Signs Temp Pulse Resp BP Pulse Ox 12/15/19 15:24 106 H 18 133/61 90 L 12/15/19 13:07 36 H 12/15/19 11:08 92 12/15/19 11:00 92 12/15/19 10:31 45 H 12/15/19 08:06 97.7 F 73 25 H 154/74 H 94 12/15/19 06:33 40 H 12/15/19 06:25 97.1 F 80 40 H 174/81 H 12/15/19 03:39 90 38 H 115/93 H 96 12/15/19 01:33 97.9 F 94 22 H 182/78 H 89 L 12/14/19 23:28 90 L 12/14/19 23:15 98.3 F 85 22 H 135/86 2 L Body Mass Index 28.2 Const: General: no acute distress and other ( Sedated on the vent) Eyes: Sclerae: sclerae normal EOM: EOMs intact bilaterally Neck: Neck: Yes no lymphadenopathy, Yes trachea midline and Yes supple Resp: Auscultation: other ( poor bilateral air movement, left-sided crackles) Cardio: Rate: regular rate Rhythm: regular rhythm Heart sounds: no gallops, no murmurs and no rubs GI: Palpation (GI): Soft to palpation and Other GI palpation findings present ( Nontender) Auscultation: normal bowel sounds Extrem: General: No clubbing, No cyanosis, Yes edema ( trace bilateral) and Yes other ( left antecubital old scar tissue with granuloma secondary to skin popping) Objective Data Labs CBC & Chem 7: 12/15/19 00:17 12/15/19 00:17 Labs: Laboratory Results - last 24 hr 12/15/19 12/15/19 12/15/19 00:17 00:17 00:17 WBC 16.8 H RBC 4.18 L Hgb 13.2 L Hct 38.6 L MCV 92.3 MCH 31.6 MCHC 34.2 RDW 18.0 H Plt Count 249 MPV 11.1 Immature Gran % (Auto) 1.7 H Neut % (Auto) 86.8 H Lymph % (Auto) 5.1 L [place] % (Auto) 6.1 Eos % (Auto) 0.1 Baso % (Auto) 0.2 Lymph # (Auto) 0.9 L [place] # (Auto) 1.0 Eos # (Auto) 0.0 Baso # (Auto) 0.0 Abs Immat Gran (auto) 0.28 H Absolute Neuts (auto) 14.6 H Absolute Nucleated RBC 0.030 H Nucleated RBC % (auto) 0.2 PT INR ABG pH ABG pCO2 ABG pO2 ABG HCO3 ABG O2 Saturation ABG Base Excess Oxygen Given Sodium 136 Potassium 4.2 Chloride 100 Carbon Dioxide 22 Anion Gap 18 BUN 26 H Creatinine 0.83 Estim Creat Clear Calc 153.2 Estimated GFR > 60 Random Glucose 248 H Lactic Acid 2.7 H* Lactic Acid Fup @ 2Hr Lactic Acid Fup @ 4Hr Calcium 8.3 L Total Bilirubin 9.9 H Direct Bilirubin 8.2 H AST 71 H ALT 66 H Alkaline Phosphatase 443 H B-Natriuretic Peptide Total Protein 5.7 L Albumin 3.1 L Lipase 7 L Procalcitonin Urine Color Urine Appearance Urine pH Ur Specific [place] Urine Protein Urine Glucose (UA) Urine Ketones Urine Blood Urine Nitrite Ur Leukocyte Esterase Urine RBC Urine WBC Ur Squamous Epith Cells Amorphous Sediment Urine Bacteria Coronavirus (PCR) 12/15/19 12/15/19 12/15/19 01:29 01:35 04:44 WBC RBC Hgb Hct MCV MCH MCHC RDW Plt Count MPV Immature Gran % (Auto) Neut % (Auto) Lymph % (Auto) [place] % (Auto) Eos % (Auto) Baso % (Auto) Lymph # (Auto) [place] # (Auto) Eos # (Auto) Baso # (Auto) Abs Immat Gran (auto) Absolute Neuts (auto) Absolute Nucleated RBC Nucleated RBC % (auto) PT INR ABG pH 7.45 ABG pCO2 28 L ABG pO2 54 L ABG HCO3 19 L ABG O2 Saturation 87.9 ABG Base Excess -3.5 Oxygen Given 4 L Sodium Potassium Chloride Carbon Dioxide Anion Gap BUN Creatinine Estim Creat Clear Calc Estimated GFR Random Glucose Lactic Acid Lactic Acid Fup @ 2Hr Lactic Acid Fup @ 4Hr Calcium Total Bilirubin Direct Bilirubin AST ALT Alkaline Phosphatase B-Natriuretic Peptide Total Protein Albumin Lipase Procalcitonin Urine Color BROWN Urine Appearance TURBID Urine pH 5.0 Ur Specific [place] >= 1.030 H Urine Protein 1+ H Urine Glucose (UA) 250 H Urine Ketones 15 Urine Blood TRACE Urine Nitrite POS H Ur Leukocyte Esterase NEG Urine RBC 0-2 Urine WBC 0-2 Ur Squamous Epith Cells NONE Amorphous Sediment 4+ Urine Bacteria NONE Coronavirus (PCR) NEGATIVE 12/15/19 12/15/19 12/15/19 04:54 08:45 08:45 WBC RBC Hgb Hct MCV MCH MCHC RDW Plt Count MPV Immature Gran % (Auto) Neut % (Auto) Lymph % (Auto) [place] % (Auto) Eos % (Auto) Baso % (Auto) Lymph # (Auto) [place] # (Auto) Eos # (Auto) Baso # (Auto) Abs Immat Gran (auto) Absolute Neuts (auto) Absolute Nucleated RBC Nucleated RBC % (auto) PT 20.8 H INR 1.7 H ABG pH ABG pCO2 ABG pO2 ABG HCO3 ABG O2 Saturation ABG Base Excess Oxygen Given Sodium Potassium Chloride Carbon Dioxide Anion Gap BUN Creatinine Estim Creat Clear Calc Estimated GFR Random Glucose Lactic Acid Lactic Acid Fup @ 2Hr 3.5 H* Lactic Acid Fup @ 4Hr Calcium Total Bilirubin Direct Bilirubin AST ALT Alkaline Phosphatase B-Natriuretic Peptide 65 Total Protein Albumin Lipase Procalcitonin Urine Color Urine Appearance Urine pH Ur Specific [place] Urine Protein Urine Glucose (UA) Urine Ketones Urine Blood Urine Nitrite Ur Leukocyte Esterase Urine RBC Urine WBC Ur Squamous Epith Cells Amorphous Sediment Urine Bacteria Coronavirus (PCR) 12/15/19 12/15/19 12/15/19 08:45 09:16 12:50 WBC RBC Hgb Hct MCV MCH MCHC RDW Plt Count MPV Immature Gran % (Auto) Neut % (Auto) Lymph % (Auto) [place] % (Auto) Eos % (Auto) Baso % (Auto) Lymph # (Auto) [place] # (Auto) Eos # (Auto) Baso # (Auto) Abs Immat Gran (auto) Absolute Neuts (auto) Absolute Nucleated RBC Nucleated RBC % (auto) PT INR ABG pH 7.35 ABG pCO2 41 ABG pO2 63 L ABG HCO3 22 ABG O2 Saturation 90.5 ABG Base Excess -3.6 Oxygen Given 100% Sodium Potassium Chloride Carbon Dioxide Anion Gap BUN Creatinine Estim Creat Clear Calc Estimated GFR Random Glucose Lactic Acid Lactic Acid Fup @ 2Hr Lactic Acid Fup @ 4Hr 2.2 H* Calcium Total Bilirubin Direct Bilirubin AST ALT Alkaline Phosphatase B-Natriuretic Peptide Total Protein Albumin Lipase Procalcitonin 5.28 Urine Color Urine Appearance Urine pH Ur Specific [place] Urine Protein Urine Glucose (UA) Urine Ketones Urine Blood Urine Nitrite Ur Leukocyte Esterase Urine RBC Urine WBC Ur Squamous Epith Cells Amorphous Sediment Urine Bacteria Coronavirus (PCR) Progress Note: A&P Assessment and plan (1) Acute respiratory failure with hypoxia: Status: Acute (2) Metastatic lung cancer (metastasis from lung to other site): Status: Acute (3) Pneumonia: Status: Acute Assessment and Plan: Assessment: 54-year-old gentleman admitted with progressive dyspnea secondary to combination underlying metastatic lung cancer and pneumonia Plan: Neuro: No acute issues. Cardiac: No acute issues. Pulmonary: acute hypoxic respiratory failure secondary to progressive metastatic lung cancer and pneumonia requiring ventilatory support. Renal: No acute issues. Endo: No acute issues. GI: Liver metastasis, likely lung in origin. ID: Pneumonia, no evidence of septic shock, elevated lactate secondary to liver mets. Continue with broad-spectrum antibiotic coverage. Heme/Onc: Coagulopathy secondary to liver dysfunction. Continue vitamin K. Underlying metastatic lung cancer, will likely require biopsy of liver metastasis when more stable. Psych: No acute issues. Miscellaneous: No acute issues. Prophylaxis: heparin, ppi Diet: nothing by mouth Critical care time spent: 120 minutes excluding separately billable procedures Time Spent With Patient Total time spent with greater than 50% in coordination of care (as documented) at patient's floor/unit and/or counseling patient:: 0 Critical Care Time Critical Care Time (minutes): 120
[2019-12-15 17:03] LABS: Base Excess VBG -5.5 mmol/L; HCO3 VBG 24 mmol/L; PCO2 VBG 68 mmhg; PO2 VBG 57 mmhg
[2019-12-15 17:04] LABS: Blood Gas Serial # 5396; Oxygen Saturation VBG 79.3 %; pH VBG 7.17 (7.32-7.43)
[2019-12-15] MEDS: propofoL 1,000 MG/100 ML VIAL 25.29 MG IVCONT ×2 (18:42→22:33)
[2019-12-15 18:57] LABS: pH VBG 7.25 (7.32-7.43)
[2019-12-15 18:58] LABS: Base Excess VBG -5.1 mmol/L; HCO3 VBG 22 mmol/L; PCO2 VBG 52 mmhg; PO2 VBG 58 mmhg
[2019-12-15 18:59] LABS: Blood Gas Serial # 5414; Oxygen Saturation VBG 84.4 %
--- NOTE | 2019-12-15 19:51 | PC.NURSE ---
SHIFT UPDATE; PT TRANSFER FROM IMC TO ICU ~1500; PT DYSPNEIC, SOB, DISTRESS, INTUBATED WITH 7.5 ET TUBE AT 25 CM REQUIRING SEVERAL DOSES OF PROPOFOL, TLC PLACED IN L FEM LINE, PT ON MAX DOSES OF PROPOFOL, FENTANYL, VERSED GTT ADDED WELL NIMBEX, BOTH INFUSING; LUNG SOUNDS POORLY AERATING ON LUNG SOUNDS, DIMINISHED, BRONCHIAL, COARSE, ON AC SETTINGS 28, TV 500, PEEP 12, AT 80%, VBGS REDRAWN; RESTRAINTS APPLIED UPON INTUBATION FOR COMBATIVE BEHAVIOR AND PT REACHING FOR TUBE, AIRLOSS BED IN PLACE; REPORT GIVEN TO ONCOMING RN RENA AT 1900
[2019-12-15] MEDS: fentaNYL citrate/NS 1,000 MCG/100 ML PLAST..BAG 20 MCG IVCONT (20:36)
[2019-12-15] MEDS: vancomycin HCL 1,000 MG in 0.9 % Sodium Chloride 250 ML 250 MG IV (22:12)
[2019-12-15] MEDS: Chlorhexidine Gluc Oral Rinse 15 ML MOUTHWASH BUCCAL (22:14)
[2019-12-16] VITALS (30 sets, daily range): BP systolic 99–136; BP diastolic 53–74; PULSE 71–89; RESP 24–30; TEMP 37.3–38; O2SAT 92–99; BMI 27.8
--- NOTE | 2019-12-16 | XR_ITS ---
EXAMINATION: XR CHEST CLINICAL INFORMATION: Orogastric tube placement COMPARISON: December 15, 2019 TECHNIQUE: AP portable view of the chest was obtained. FINDINGS: Endotracheal tube tip is seen to be 6 cm above the saul. Orogastric tube seen traversing through the stomach. There is some improvement in interstitial and airspace disease in the left hemithorax. Right paratracheal and hilar soft tissue mass/prominence again seen. No pneumothorax. No significant pleural effusion. Heart normal size. No evidence of pulmonary edema. IMPRESSION: Endotracheal and orogastric tubes in place. Improving left lung disease. Continued mediastinal and hilar abnormality.
--- NOTE | 2019-12-16 | US_ITS ---
EXAMINATION: US VENOUS ULTRASOUND WITH DOPPLER LOWER EXTREMITY, BILATERAL CLINICAL INFORMATION: Bilateral leg pain COMPARISON: None TECHNIQUE: Ultrasound of the deep veins is performed from the hip to the calf with compression sonography and color and pulse Doppler assessment. Spectral analysis with color-flow imaging is performed. FINDINGS: RIGHT: There is normal venous compression and respiratory variation and augmented flow. The visualized common femoral vein, superficial femoral vein, profunda femoral vein, popliteal vein, and the trifurcation region shows no evidence of deep venous thrombosis. No popliteal artery aneurysm. There are 2 popliteal fossa fluid collections present one measuring 3.1 x 0.9 x 3.3 cm in size and the other measuring 6.5 x 3.5 x 3.5 cm in size LEFT: There are limited patient is to visualization of the left common femoral vein, greater saphenous vein, and proximal superficial femoral vein due to IV being and groin. There is normal venous compression and respiratory variation and augmented flow throughout the visualized veins. The visualized superficial femoral vein, popliteal vein, and the trifurcation region shows no evidence of deep venous thrombosis. There is no significant popliteal fossa cyst. No popliteal artery aneurysm. If the patient's symptoms persist, followup ultrasound in 5 days 7 days might be of value to exclude proximal propagation from a non-visualized calf vein. IMPRESSION: No acute DVT demonstrated in the bilateral lower extremity. Left proximal venous system not evaluated due to catheter in place. 2 right popliteal fossa cysts.
--- NOTE | 2019-12-16 00:35 | PC.NURSE ---
pt experienced increased peak airway pressure and ventilator disharmony. vent settings changed to pressure control 24/12 rate of 24. fio2 remains at 80%. endotracheal suctioning produces no sputum. nimbex drip increased to 2mcg/kg/min. versed 2 mg iv bolus given. will check venous abg at 0100. pt jaundiced. sclera icteric. anasarca is present. pt has scabbed crusted area left antecubital area. pt previously stated that area was r/t iv drug use and subsequent infection. breath sounds with coarse rhonchi. ecg displays sr. at this juncture no pressor support required. abdomen distended/firm. ogt to suction draining coffee ground colored gastric material. real catheter patent and draining orange grossly sedimented urine.
[2019-12-16 01:12] LABS: HCO3 VBG 23 mmol/L; PCO2 VBG 54 mmhg; PO2 VBG 69 mmhg; pH VBG 7.24 (7.32-7.43)
[2019-12-16 01:13] LABS: Oxygen Saturation VBG 91.1 %
[2019-12-16] MEDS: Piperacillin Sodium/Tazobactam 3.375 GM in 0.9 % Sodium Chloride 50 ML IV ×4 (01:43→18:38)
[2019-12-16] MEDS: propofoL 1,000 MG/100 ML VIAL 25.29 MG IVCONT ×6 (02:19→22:40)
[2019-12-16] MEDS: fentaNYL citrate/NS 1,000 MCG/100 ML PLAST..BAG 20 MCG IVCONT ×4 (02:20→18:38)
[2019-12-16 05:38] LABS: Basophils Percent Auto 0.2 % (0-2); Hematocrit 38.1 % (42-52); Hemoglobin 12.5 g/dl (14.0-18.0); Imm Gran Abs Auto 0.31 X10*3/uL (0.00-0.03); Lymphocytes Absolute Auto 0.7 X10*3/uL (1.2-4.9); Lymphocytes Percent Auto 4.2 % (20-40); MANUAL DIFF FLAG SCAN; Mean Corpuscular HGB Conc 32.8 g/dl (31.0-36.0); Mean Corpuscular Hemoglobin 31.6 pg (27.0-33.0); Mean Corpuscular Volume 96.2 fL (80-98); Mean Platelet Volume 11.4 fL (9.4-12.4); Monocytes Percent Auto 6.4 % (2-11); Neutrophils Absolute Auto 13.8 X10*3/uL (2.0-8.3); Neutrophils Percent Auto 87.2 % (45-73); Platelet Count 235 X10*3/uL (160-400); Red Blood Count 3.96 X10*6/uL (4.60-5.80); Red Cell Distribution Width 17.9 % (11.0-16.0); SCAN SMEAR FLAG 1; White Blood Count 15.8 X10*3/uL (4.8-10.8)
[2019-12-16 05:43] LABS: INTERNATIONAL NORM RATIO 1.1 (0.9-1.1); Prothrombin Time 13.3 SEC (10.8-13.0)
[2019-12-16 05:45] LABS: Base Excess VBG -3.7 mmol/L; HCO3 VBG 22 mmol/L; Oxygen Saturation VBG 89.9 %; PCO2 VBG 41 mmhg; PO2 VBG 60 mmhg; pH VBG 7.34 (7.32-7.43)
[2019-12-16 06:08] LABS: SLIDE REVIEW VERIFIED
[2019-12-16 06:09] LABS: Alanine Aminotransferase 74 U/L (0-40); Alkaline Phosphatase 347 U/L (39-117); Anion Gap 18 (12-20); Aspartate Amino Transferase 90 U/L (5-37); Bilirubin Total 8.8 mg/dL (0.0-1.0); Blood Urea Nitrogen 35 mg/dL (9-16); Carbon Dioxide 20 mmol/L (22-29); Chloride 103 mmol/L (96-108); Creatinine Clr Calc Pharmacy 62.7; Estimated Glomerular Filt Rate 53; Glucose Random 365 mg/dL (60-115); Magnesium 2.9 mg/dL (1.6-2.6); Phosphorus 4.4 mg/dL (2.7-4.5); Potassium 4.9 mmol/l (3.3-5.1); Sodium 136 mmol/L (135-145); Total Protein 5.4 g/dL (6.5-8.0)
[2019-12-16] MEDS: Midazolam HCl/NS 50 MG/50 ML PLAST..BAG IVCONT (06:14)
--- NOTE | 2019-12-16 06:35 | PC.NURSE ---
SEDATED. UNDER THE INFLUENCES OF PARALYTIC AGENT NIMBEX FOR VENTILATORY MANAGEMENT IN CONJUNCTION WITH VERSED,FENTANYL AND PROPOFOL. VENTILATORY MANAGEMENT HAS IMPROVED WITH INCREASE IN NIMBEX AND INCREASING PC TO 26/12. BREATH SOUNDS REMAIN COARSE WITH I/E RHONCHI. SUCTIONED VIA ETT FOR NO SECREATIONS. ECG DISPLAYS SR. HEMODYNAMICALLY STABLE. OGT DRAINING COFFEE GROUND GASTRIC MATERIAL. HEPARIN HELD. U/O HAS DIMINISHED TO 10-20 ML/HR. URINE PURULENT IN APPEARANCE.
[2019-12-16] MEDS: 0.9 % Sodium Chloride Flush 3 ML SYRINGE IVFLUSH ×2 (07:36→16:40)
[2019-12-16] MEDS: Chlorhexidine Gluc Oral Rinse 15 ML MOUTHWASH BUCCAL ×3 (07:36→22:32)
[2019-12-16] MEDS: Albuterol/Iprat 2.5/0.5MG 3 ML AMPUL.NEB INHALE ×4 (07:42→20:04)
--- NOTE | 2019-12-16 07:56 | US_ITS ---
EXAMINATION: US ABDOMEN LIMITED CLINICAL INFORMATION: Elevated T bili. COMPARISON: CT scan of December 15, 2019 TECHNIQUE: Real-time imaging of the liver and gallbladder FINDINGS: LIVER: There is hepatomegaly present. There are innumerable heterogeneous lesions throughout the liver some of which have a hypoechoic central regions consistent with necrosis. The largest is seen within the left lower liver measuring approximately 8.4 x 4.7 x 9.2 cm in size. Right lobe measures approximately 21 cm in vertical span with left lobe measuring approximately 16 cm in vertical span. No intrahepatic bile duct dilatation is appreciated. GALLBLADDER: There is no evidence of cholelithiasis. Gallbladder wall is thickened to approximately 6 mm in diameter. No fluid within the gallbladder wall is seen. No pericholecystic fluid is noted. The gallbladder is physiologically distended without evidence of stones, sludge, polyps, wall thickening or pericholecystic fluid. COMMON BILE DUCT: Normal in caliber measuring 0.4 cm in diameter. FREE FLUID: There is a small amount of free fluid seen within the right upper quadrant and right lower quadrant. IMPRESSION: Innumerable hepatic lesions with hepatomegaly consistent with metastatic disease. Bladder wall thickening. No intrahepatic bile duct dilatation is identified and no evidence of common bile duct obstruction.
[2019-12-16] MEDS: vancomycin HCL 1,000 MG in 0.9 % Sodium Chloride 250 ML 250 MG IV ×2 (09:32→22:53)
--- NOTE | 2019-12-16 10:19 | P.PNCC_ITS ---
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 Patient initially treated for pneumonia with hospital course complicated by progressive respiratory distress and hypoxia requiring transfer to intensive care unit and intubation. No events overnight. Physical Exam Vital Signs: Vital Signs: Vital Signs Temp Pulse Resp BP Pulse Ox 12/16/19 09:00 99.3 F 82 26 H 129/73 98 12/16/19 08:00 99.3 F 82 26 H 124/69 98 12/16/19 07:00 99.1 F 75 26 H 99/58 L 98 12/16/19 06:00 99.1 F 75 26 H 99/68 12/16/19 05:00 99.1 F 75 26 H 99/61 99 12/16/19 04:00 99.1 F 74 26 H 106/60 12/16/19 03:00 99.1 F 72 26 H 115/63 98 12/16/19 02:00 99.3 F 71 26 H 118/55 L 98 12/16/19 01:00 99.3 F 85 24 H 120/71 98 12/16/19 00:00 99.1 F 85 24 H 103/53 L 98 12/15/19 22:52 99.1 F 78 28 H 123/66 97 12/15/19 21:45 99.3 F 80 28 H 118/69 96 12/15/19 21:00 99.3 F 96 28 H 113/64 98 12/15/19 19:58 99.3 F 98 28 H 112/65 97 12/15/19 19:45 99.3 F 97 28 H 113/63 97 12/15/19 19:29 95 28 H 106/60 95 12/15/19 19:00 99.3 F 88 28 H 130/71 95 12/15/19 18:00 99.3 F 87 29 H 114/91 H 93 12/15/19 17:00 99.3 F 109 H 33 H 166/91 H 88 L 12/15/19 16:00 99.3 F 115 H 20 212/105 H 90 L 12/15/19 15:24 106 H 18 133/61 90 L 12/15/19 13:07 36 H 12/15/19 11:08 92 12/15/19 11:00 92 12/15/19 10:31 45 H Body Mass Index 27.8 Const: General: no acute distress and other ( sedated on the vent) Eyes: Sclerae: sclerae normal Neck: Neck: Yes no lymphadenopathy, Yes trachea midline and Yes supple Resp: Effort & Inspection: normal respiratory effort and no respiratory distress Auscultation: clear to auscultation bilaterally Cardio: Rate: regular rate Rhythm: regular rhythm Heart sounds: no gallops, no murmurs and no rubs GI: Palpation (GI): Soft to palpation and Other GI palpation findings present ( Nontender, liver palpated 6 cm below the costal margin) Auscultation: normal bowel sounds Extrem: General: Yes no pedal edema, No clubbing, No cyanosis and Yes other ( left arm with antecubital granuloma/scar from skin popping) Objective Data Labs CBC & Chem 7: 12/16/19 05:13 12/16/19 05:13 Labs: Laboratory Results - last 24 hr 12/15/19 12/15/19 12/15/19 12:50 16:36 18:41 WBC RBC Hgb Hct MCV MCH MCHC RDW Plt Count MPV Immature Gran % (Auto) Neut % (Auto) Lymph % (Auto) [place] % (Auto) Eos % (Auto) Baso % (Auto) Lymph # (Auto) [place] # (Auto) Eos # (Auto) Baso # (Auto) Abs Immat Gran (auto) Absolute Neuts (auto) Absolute Nucleated RBC Nucleated RBC % (auto) Smear Tech's Comments PT INR ABG pH 7.35 ABG pCO2 41 ABG pO2 63 L ABG HCO3 22 ABG O2 Saturation 90.5 ABG Base Excess -3.6 VBG pH 7.17 L* 7.25 L VBG pCO2 68 52 VBG Oxygen Liters/Min Not Reportable Not Reportable VBG pO2 57 58 VBG HCO3 24 22 VBG O2 Saturation 79.3 84.4 VBG Base Excess -5.5 -5.1 Oxygen Given 100% Sodium Potassium Chloride Carbon Dioxide Anion Gap BUN Creatinine Estim Creat Clear Calc Estimated GFR Random Glucose Calcium Phosphorus Magnesium Total Bilirubin AST ALT Alkaline Phosphatase Total Protein Albumin 12/16/19 12/16/19 12/16/19 01:05 05:13 05:13 WBC 15.8 H RBC 3.96 L Hgb 12.5 L Hct 38.1 L MCV 96.2 MCH 31.6 MCHC 32.8 RDW 17.9 H Plt Count 235 MPV 11.4 Immature Gran % (Auto) 2.0 H Neut % (Auto) 87.2 H Lymph % (Auto) 4.2 L [place] % (Auto) 6.4 Eos % (Auto) 0.0 Baso % (Auto) 0.2 Lymph # (Auto) 0.7 L [place] # (Auto) 1.0 Eos # (Auto) 0.0 Baso # (Auto) 0.0 Abs Immat Gran (auto) 0.31 H Absolute Neuts (auto) 13.8 H Absolute Nucleated RBC 0.000 Nucleated RBC % (auto) 0.0 Smear Tech's Comments VERIFIED PT 13.3 H D INR 1.1 ABG pH ABG pCO2 ABG pO2 ABG HCO3 ABG O2 Saturation ABG Base Excess VBG pH 7.24 L VBG pCO2 54 VBG Oxygen Liters/Min TNP VBG pO2 69 VBG HCO3 23 VBG O2 Saturation 91.1 VBG Base Excess -5.0 Oxygen Given Sodium Potassium Chloride Carbon Dioxide Anion Gap BUN Creatinine Estim Creat Clear Calc Estimated GFR Random Glucose Calcium Phosphorus Magnesium Total Bilirubin AST ALT Alkaline Phosphatase Total Protein Albumin 12/16/19 12/16/19 05:13 05:13 WBC RBC Hgb Hct MCV MCH MCHC RDW Plt Count MPV Immature Gran % (Auto) Neut % (Auto) Lymph % (Auto) [place] % (Auto) Eos % (Auto) Baso % (Auto) Lymph # (Auto) [place] # (Auto) Eos # (Auto) Baso # (Auto) Abs Immat Gran (auto) Absolute Neuts (auto) Absolute Nucleated RBC Nucleated RBC % (auto) Smear Tech's Comments PT INR ABG pH ABG pCO2 ABG pO2 ABG HCO3 ABG O2 Saturation ABG Base Excess VBG pH 7.34 VBG pCO2 41 VBG Oxygen Liters/Min TNP VBG pO2 60 VBG HCO3 22 VBG O2 Saturation 89.9 VBG Base Excess -3.7 Oxygen Given Sodium 136 Potassium 4.9 Chloride 103 Carbon Dioxide 20 L Anion Gap 18 BUN 35 H Creatinine 1.39 Estim Creat Clear Calc 62.7 Estimated GFR 53 Random Glucose 365 H* Calcium 8.0 L Phosphorus 4.4 Magnesium 2.9 H Total Bilirubin 8.8 H AST 90 H ALT 74 H Alkaline Phosphatase 347 H D Total Protein 5.4 L Albumin 3.0 L Microbiology Microbiology Results: Microbiology 12/15/19 00:16 Blood - Venous Blood Culture - Preliminary 12/15/19 00:16 Blood - Venous Blood Culture - Preliminary No growth after 24 hours. Progress Note: A&P Assessment and plan (1) Pneumonia: Status: Acute (2) Metastatic lung cancer (metastasis from lung to other site): Status: Acute (3) Acute respiratory failure with hypoxia: Status: Acute (4) Elevated bilirubin: Status: Acute Assessment and Plan: Assessment: 54-year-old gentleman admitted with progressive dyspnea secondary t o combination of underlying metastatic lung cancer and pneumonia Plan: Neuro: No acute issues. Cardiac: No acute issues. Pulmonary: acute hypoxic respiratory failure secondary to progressive meta static lung cancer and pneumonia requiring ventilatory support. Continue to titrate of ventilatory support as tolerated. Renal: No acute issues. Endo: Hyperglycemia, possible secondary to liver metastasis, continue with sliding scale insulin. GI: Liver metastasis, likely lung in origin. Plan is for percutaneous biopsy in a.. Gastroenterology service care appreciated. ID: Pneumonia, no evidence of septic shock, elevated lactate secondary to liver mets. Continue with broad-spectrum antibiotic coverage. Heme/Onc: Coagulopathy secondary to liver dysfunction. Continue vitamin K. Un derlying likely metastatic lung cancer. Oncology service care appreciated. Psych: No acute issues. Miscellaneous: No acute issues. Prophylaxis: Intermittent pneumatic compression, ppi Diet: tube feeds Critical care time spent: 60 minutes Time Spent With Patient Total time spent with greater than 50% in coordination of care (as documented) at patient's floor/unit and/or counseling patient:: 0 Critical Care Time Critical Care Time (minutes): 60
[2019-12-16] MEDS: Phytonadione (Vit K1) Oral 10 MG/ML AMPUL PO (10:39)
[2019-12-16 11:07] LABS: Glucose, Whole Blood 364 mg/dL (60-115)
--- NOTE | 2019-12-16 11:23 | MHC.CM.PN ---
Pt is presently in ICU intubated and unable to participate in CM assessment: Call placed to pt's , Esthela: Per Esthela, they are residing in a hotel but are essentially homeless. Pt does not have any services and is seeing a provider at the [facility]. Pt is quite ill per MD and the overall plan of care is not yet known. Esthela states he is a full code and is interested in having everything done at this time. CM will need to follow for d/c needs.
[2019-12-16] MEDS: Insulin Lispro 100 UNIT/ML 3 ML VIAL SUBCUT ×3 (11:43→22:36)
[2019-12-16 16:17] LABS: Glucose, Whole Blood 310 mg/dL (60-115)
--- NOTE | 2019-12-16 19:20 | PC.NURSE ---
SHIFT UPDATE; PT SEDATE AND INTUBATED WITH 7.5 ET TUBE AT 25 CM VENTILATING ON PCV SETTINGS; SEDATE IN PROPOFOL, FENTANYL, VERSED AND NIMBEX GTT, NIMBEX AND FENTANYL SHUT OFF THIS AM; ABD U/S DONE AT BEDSIDE, U/S BILAT LE DONE WELL; PLAN FOR BIOPSY OF LIVER TOMORROW PER DR BAPTISTE; SPUTUM SENT FOR CYTOLOGY TODAY; TURNING REPOSITIONING Q2H; RESTRAINTS IN PLACE FOR TUBE AND LINE SAFETY; UPDATED; REPORT GIVEN TO JESUS SAGASTUME AT 1900
[2019-12-16] MEDS: Midazolam HCl/PF 2 MG/2 ML VIAL IVPUSH (19:51)
[2019-12-16 21:42] LABS: Glucose, Whole Blood 259 mg/dL (60-115)
[2019-12-16 21:58] LABS: Vancomycin Trough 18.8 mcg/mL (10.0-20.0)
[2019-12-16 23:21] LABS: Glucose, Whole Blood 246 mg/dL (60-115)
[2019-12-17] VITALS (34 sets, daily range): BP systolic 127–160; BP diastolic 62–78; PULSE 71–82; RESP 26–74; TEMP 37.6–37.9; O2SAT 96–98; BMI 28.5
--- NOTE | 2019-12-17 | US_ITS ---
EXAMINATION: ULTRASOUND-GUIDED LIVER BIOPSY CLINICAL INFORMATION: Liver lesions. COMPARISON: Previous CT of the abdomen 12/15/2019 TECHNIQUE: Procedure and risks and benefits including bleeding and infection were discussed with the patient's healthcare proxy, his by telephone, and informed consent was obtained. Right upper quadrant was prepped and draped in the usual sterile fashion. The skin and soft tissues were anesthetized with 1% lidocaine plain. Using ultrasound guidance and a coaxial system, access to the right lobe of the liver was obtained. 3 20-gauge core biopsies were obtained. Exam was performed portably in the ICU. FINDINGS: The liver is enlarged. The liver is essentially replaced by innumerable mixed hypoechoic and hyperechoic lesions. Some lesions appear cystic IMPRESSION: Ultrasound-guided liver biopsy.
[2019-12-17] MEDS: Midazolam HCl/PF 2 MG/2 ML VIAL IVPUSH ×3 (00:06→13:33)
[2019-12-17] MEDS: 0.9 % Sodium Chloride Flush 3 ML SYRINGE IVFLUSH ×4 (00:07→23:32)
[2019-12-17] MEDS: fentaNYL citrate/NS 1,000 MCG/100 ML PLAST..BAG 20 MCG IVCONT ×5 (00:55→20:43)
[2019-12-17] MEDS: propofoL 1,000 MG/100 ML VIAL 25.29 MG IVCONT ×7 (00:57→23:34)
[2019-12-17] MEDS: Piperacillin Sodium/Tazobactam 3.375 GM in 0.9 % Sodium Chloride 50 ML IV ×4 (01:28→18:56)
[2019-12-17 05:33] LABS: MANUAL DIFF FLAG NO
[2019-12-17 05:36] LABS: Basophils Percent Auto 0.1 % (0-2); Eosinophils Percent Auto 0.1 % (0-4); Hematocrit 36.5 % (42-52); Hemoglobin 12.4 g/dl (14.0-18.0); Imm Gran Abs Auto 0.39 X10*3/uL (0.00-0.03); Imm Gran Pct Auto 2.4 % (0.0-0.4); Lymphocytes Absolute Auto 0.8 X10*3/uL (1.2-4.9); Lymphocytes Percent Auto 4.8 % (20-40); Mean Corpuscular Hemoglobin 32.4 pg (27.0-33.0); Mean Corpuscular Volume 95.3 fL (80-98); Mean Platelet Volume 11.4 fL (9.4-12.4); Monocytes Absolute Auto 1.1 X10*3/uL (0.1-1.2); Monocytes Percent Auto 7.1 % (2-11); Neutrophils Absolute Auto 13.7 X10*3/uL (2.0-8.3); Neutrophils Percent Auto 85.5 % (45-73); Platelet Count 259 X10*3/uL (160-400); Red Blood Count 3.83 X10*6/uL (4.60-5.80); Red Cell Distribution Width 17.9 % (11.0-16.0)
[2019-12-17 05:39] LABS: Base Excess VBG -2.3 mmol/L; HCO3 VBG 22 mmol/L; Oxygen Saturation VBG 89.3 %; PCO2 VBG 35 mmhg; PO2 VBG 58 mmhg; pH VBG 7.41 (7.32-7.43)
[2019-12-17 05:58] LABS: INTERNATIONAL NORM RATIO 1.1 (0.9-1.1); Prothrombin Time 12.5 SEC (10.8-13.0)
[2019-12-17 06:04] LABS: Alanine Aminotransferase 263 U/L (0-40); Albumin Level 2.8 g/dL (3.5-5.0); Alkaline Phosphatase 329 U/L (39-117); Anion Gap 16 (12-20); Aspartate Amino Transferase 283 U/L (5-37); Bilirubin Total 8.6 mg/dL (0.0-1.0); Blood Urea Nitrogen 47 mg/dL (9-16); Carbon Dioxide 21 mmol/L (22-29); Chloride 105 mmol/L (96-108); Creatinine Clr Calc Pharmacy 49.4; Estimated Glomerular Filt Rate 41; Glucose Random 216 mg/dL (60-115); Magnesium 3.2 mg/dL (1.6-2.6); Phosphorus 3.3 mg/dL (2.7-4.5); Potassium 4.1 mmol/l (3.3-5.1); Sodium 138 mmol/L (135-145); Total Protein 5.2 g/dL (6.5-8.0)
[2019-12-17 06:06] LABS: Glucose, Whole Blood 232 mg/dL (60-115)
[2019-12-17] MEDS: Albuterol/Iprat 2.5/0.5MG 3 ML AMPUL.NEB INHALE ×4 (07:33→19:46)
--- NOTE | 2019-12-17 07:41 | PC.NURSE ---
ASSUMED CARE AT 19:00. PATIENT WAS INITIALLY RESTLESS, ROCKING HEAD BACK AND FORTH IN THE BED, NOTED TO HAVE ETT AT 23 CM KELVIN, WHEN WAS 25 CM KELVIN PER REPORT, CHECKED WITH RT, AND RECORD SHOWED 24 CM KELVIN; DISCUSSED WITH EMAIL ENGINEER AND RT ADJUSTED ETT BACK TO 24 CM PER EMAIL ENGINEER. PATIENT IS IN RESTRAINTS BILATERAL WRIST RESTRAINTS, AND ALSO WAS MEDICATED TWICE WITH PRN VERSED TO HELP PATIENT TOLERATE AND PARTICIPATE IN HIS CARE. PATIENT HAS #7.5 ETT, 24 CM KELVIN, PRESSURE CONTROL SETTINGS, AC26; PRESSURE CONTROL IS 24; PEEP 12; FIO2 TITIRATED DOWN FROM 60 TO 50%, SPO2 96-98%; MINUT VOLUMES 15-16; TIDAL VOLUMES 500'S-600'S. SCANT ORAL AND INLINE CLEAR THIN SECRETIONS. LUNG SOUNDS WITH PLEURAL RUB THROUGHOUT. SEDATION WITH 50 PROPOFOL GTT AND 200 FENTANYL GTT, UNABLE TO SUCCESSFULLY WEAN. GLUCERNA TUBE FEED UPTITIRATED FROM 10 TO 20 CC/HOUR, THEN PLACED ON HOLD AT 00:00 IN PREPARATION FOR LIVER BIOPSY TODAY. PATIENT REMAINS AROUSABLE TO LIGHT PAIN, BUT DOES NOT FOLLOW COMMANDS. URINE OUTPUTS LOW THROUGH MOST OF SHIFT AVERAGING ABOUT 20-25 CCS/HOUR, AND CLOUDY WITH SEDIMENT, PINK COLORED TO ORANGE COLORED TO BROWNISH YELLOW, AND EMAIL ENGINEER AWARE. PATIENT DOES HAVE A BROWNISH POORLY HEALED SCABBED AREA ON LEFT ANTECUBITAL AREA, EMAIL ENGINEER AWARE, OPEN TO AIR. EDEMA TO RIGHT GREATER THAN LEFT SIDE HAND AND FOOT, PITTING 3+ EDEMA TO RIGHT HAND, 2+ TO RIGHT FOOT.
[2019-12-17] MEDS: Chlorhexidine Gluc Oral Rinse 15 ML MOUTHWASH BUCCAL ×3 (09:35→21:38)
--- NOTE | 2019-12-17 09:43 | MHC.CM.PN ---
pt remains in icu, intubated, sedated on mech. ventilator. dc plan is uncertain at this time. deferred to a future time. cm to cont. to follow.
[2019-12-17] MEDS: vancomycin HCL 1,000 MG in 0.9 % Sodium Chloride 250 ML 250 MG IV (10:29)
[2019-12-17 11:27] LABS: Glucose, Whole Blood 248 mg/dL (60-115)
[2019-12-17] MEDS: Albumin Human 25 % 100 ML IV (11:29)
[2019-12-17] MEDS: Insulin Lispro 100 UNIT/ML 3 ML VIAL SUBCUT ×3 (11:43→23:32)
[2019-12-17] MEDS: Phytonadione (Vit K1) 10 MG in 0.9 % Sodium Chloride 50 ML 51 MG IV (12:09)
[2019-12-17] MEDS: Lidocaine HCl 1 % MPF 5 ML VIAL SUBCUT (13:22)
--- NOTE | 2019-12-17 14:05 | PM.CCPN ---
Subjective Subjective Date of Service: 12/17/19 Interval History: Mr. Malone was admitted to the ICU on December 14 because of acute respiratory failure. The patient is a 54-year-old gentleman, homeless, former smoker and daily heroin user, with underlying history of COPD, and hepatitis-C. Admitted on 12/15/2019 with progressive dyspnea, abdominal pain, and weakness for several days. Juandiced on exam. 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 pneumonia. The patient was initially treated for pneumonia but very shortly developed progressive respiratory distress and hypoxemia requiring transfer to intensive care unit and tracheal intubation and ventilation. Femoral line placed bec of SVC mass effect. Since then he has been sedated, and treated with broad-spectrum antibiotics (Vanco and Zosyn) and vitamin K (initial INR was 1.7, now down to 1.1). Sputum was sent for cytology, and we are waiting for liver biopsy today. On exam this morning, the patient is well sedated on propofol 50 mcg, and fentanyl 200 mcg. Heart rate is 97, blood pressure 140/70, respiratory rate is 30 on AC/PC rate 26, pressures 24/12, i:e 1:2, 40%, with Ve 17 L, PIP 37cm, Ppl 29cm, and sat 97%. Central venous blood gas this morning showed 7.41/35/2. The patient is grossly jaundiced. There is 1 cm jugular venous distention at 30 degrees. Auscultation of the chest shows diffuse light rhonchi, with a normal expiratory phase. There is regular rate and rhythm, with normal-sounding S1 and S2, with no murmur or gallops. The abdomen shows a 6 finger breath very hard liver, also extending past the midline. The abdomen is otherwise benign. There is trivial edema. In his left upper extremity, he has an old scar with marked induration in the upper left forearm just below the antecubital fossa, presumably the remnant of old injection drug abuse. LABORATORY DATA: As below. Notably, BUN/creatinine are up to 47/1.7. ECHOCARDIOGRAM for hemodynamic monitoring: Image quality: Fair. Findings: 1. Wall thickness probably normal or top normal. 2. LV cavity size is normal, with normal LV fxn. No RWMA noted. EF 55-65%. 3. RV size normal. 4. Atria not adequately assessed. 5. AoV not adeq assessed. 6. MV morphologically normal with no MR by color libertad. 7. TV morphologically normal. Unable to obtain any Doppler signal. 8. IVC 1.5cm w minimal insp collapse. Estimated CVP 8cm. Unable to estimate RVSP. IMPRESSION: 1. Pulmonary malignancy with widespread metastases, possible/probable SVC compression (per radiology). Prognosis appears very grave. Liver biopsy is pending today. Sputum was sent for cytology yesterday, and will be read tomorrow. 2. Acute hypoxemic respiratory failure. Personally, I am doubtful that he has pneumonia. Certainly, the opacity throughout his left thoracic cavity is not infectious pneumonia. COVID is negative. Therefore by default, it?s most likely cancer. 3. Possible pneumonia. For now continue Vanco and Zosyn. 4. Acute kidney injury. By echo, he certainly does not look terribly dry. Nor does he have gross right heart failure. I?ll send a urine sodium and try a fluid challenge. 5. Hepatic failure with jaundice and coagulopathy. Secondary to liver mets. 6. Hyperglycemia. Likely secondary to hepatic failure. Continue with sliding scale insulin. Otherwise usual supportive care. Prognosis is very grave. I?m doubtful that the patient will survive this hospitalization. I?ll be talking with the patient's later today. Critical care time (including full chart review, multiple discussions with Dr. Lamar, and discussion with Dr. Apodaca in IR): 90+ minutes. Physical Exam Vital Signs: Vital Signs: Vital Signs Temp Pulse Resp BP Pulse Ox 12/17/19 13:48 99.9 F 78 30 H 137/70 96 12/17/19 13:00 99.7 F 79 28 H 160/75 H 97 12/17/19 12:00 99.9 F 78 29 H 144/72 H 97 12/17/19 11:00 100.2 F 71 28 H 142/71 H 97 12/17/19 10:00 100.2 F 79 29 H 138/69 97 12/17/19 09:00 99.9 F 80 31 H 134/66 96 12/17/19 08:00 99.9 F 78 30 H 140/70 H 97 12/17/19 07:00 99.9 F 72 30 H 138/69 97 12/17/19 06:00 99.9 F 74 26 H 136/68 98 12/17/19 05:00 100.2 F 71 26 H 133/71 98 12/17/19 04:00 100.2 F 72 26 H 137/74 98 12/17/19 03:00 99.9 F 76 29 H 145/78 H 96 12/17/19 02:00 100.0 F 76 26 H 140/70 H 96 12/17/19 01:00 100.2 F 76 26 H 133/72 96 12/17/19 00:00 100.2 F 79 32 H 139/75 12/16/19 22:48 100.2 F 82 27 H 131/71 96 12/16/19 22:00 100.2 F 83 27 H 135/72 92 12/16/19 21:00 100.2 F 85 26 H 134/72 96 12/16/19 19:48 100 F 83 27 H 131/72 96 12/16/19 19:00 100.2 F 82 26 H 125/69 96 12/16/19 17:46 100.4 F 84 26 H 123/69 96 12/16/19 17:00 100.2 F 88 29 H 136/74 97 12/16/19 15:50 100.2 F 89 28 H 132/68 97 12/16/19 15:00 100.2 F 87 26 H 124/63 97 Body Mass Index 28.5 Objective Data Labs CBC & Chem 7: 12/18/19 05:41 12/18/19 05:41 Labs: Laboratory Results - last 24 hr 12/16/19 12/16/19 12/16/19 16:12 21:09 21:37 WBC RBC Hgb Hct MCV MCH MCHC RDW Plt Count MPV Immature Gran % (Auto) Neut % (Auto) Lymph % (Auto) [place] % (Auto) Eos % (Auto) Baso % (Auto) Lymph # (Auto) [place] # (Auto) Eos # (Auto) Baso # (Auto) Abs Immat Gran (auto) Absolute Neuts (auto) Absolute Nucleated RBC Nucleated RBC % (auto) PT INR VBG pH VBG pCO2 VBG Oxygen Liters/Min VBG pO2 VBG HCO3 VBG O2 Saturation VBG Base Excess Sodium Potassium Chloride Carbon Dioxide Anion Gap BUN Creatinine Estim Creat Clear Calc Estimated GFR POC Glucose 310 H 259 H Random Glucose Calcium Phosphorus Magnesium Total Bilirubin AST ALT Alkaline Phosphatase Total Protein Albumin Vancomycin Trough 18.8 12/16/19 12/17/19 12/17/19 23:18 05:17 05:17 WBC 16.0 H RBC 3.83 L Hgb 12.4 L Hct 36.5 L MCV 95.3 MCH 32.4 MCHC 34.0 RDW 17.9 H Plt Count 259 MPV 11.4 Immature Gran % (Auto) 2.4 H Neut % (Auto) 85.5 H Lymph % (Auto) 4.8 L [place] % (Auto) 7.1 Eos % (Auto) 0.1 Baso % (Auto) 0.1 Lymph # (Auto) 0.8 L [place] # (Auto) 1.1 Eos # (Auto) 0.0 Baso # (Auto) 0.0 Abs Immat Gran (auto) 0.39 H Absolute Neuts (auto) 13.7 H Absolute Nucleated RBC 0.000 Nucleated RBC % (auto) 0.0 PT 12.5 INR 1.1 VBG pH VBG pCO2 VBG Oxygen Liters/Min VBG pO2 VBG HCO3 VBG O2 Saturation VBG Base Excess Sodium Potassium Chloride Carbon Dioxide Anion Gap BUN Creatinine Estim Creat Clear Calc Estimated GFR POC Glucose 246 H Random Glucose Calcium Phosphorus Magnesium Total Bilirubin AST ALT Alkaline Phosphatase Total Protein Albumin Vancomycin Trough 12/17/19 12/17/19 12/17/19 05:17 05:17 06:02 WBC RBC Hgb Hct MCV MCH MCHC RDW Plt Count MPV Immature Gran % (Auto) Neut % (Auto) Lymph % (Auto) [place] % (Auto) Eos % (Auto) Baso % (Auto) Lymph # (Auto) [place] # (Auto) Eos # (Auto) Baso # (Auto) Abs Immat Gran (auto) Absolute Neuts (auto) Absolute Nucleated RBC Nucleated RBC % (auto) PT INR VBG pH 7.41 VBG pCO2 35 VBG Oxygen Liters/Min TNP VBG pO2 58 VBG HCO3 22 VBG O2 Saturation 89.3 VBG Base Excess -2.3 Sodium 138 Potassium 4.1 Chloride 105 Carbon Dioxide 21 L Anion Gap 16 BUN 47 H Creatinine 1.75 H Estim Creat Clear Calc 49.4 Estimated GFR 41 POC Glucose 232 H Random Glucose 216 H D Calcium 8.0 L Phosphorus 3.3 Magnesium 3.2 H Total Bilirubin 8.6 H AST 283 H ALT 263 H Alkaline Phosphatase 329 H Total Protein 5.2 L Albumin 2.8 L Vancomycin Trough 12/17/19 11:23 WBC RBC Hgb Hct MCV MCH MCHC RDW Plt Count MPV Immature Gran % (Auto) Neut % (Auto) Lymph % (Auto) [place] % (Auto) Eos % (Auto) Baso % (Auto) Lymph # (Auto) [place] # (Auto) Eos # (Auto) Baso # (Auto) Abs Immat Gran (auto) Absolute Neuts (auto) Absolute Nucleated RBC Nucleated RBC % (auto) PT INR VBG pH VBG pCO2 VBG Oxygen Liters/Min VBG pO2 VBG HCO3 VBG O2 Saturation VBG Base Excess Sodium Potassium Chloride Carbon Dioxide Anion Gap BUN Creatinine Estim Creat Clear Calc Estimated GFR POC Glucose 248 H Random Glucose Calcium Phosphorus Magnesium Total Bilirubin AST ALT Alkaline Phosphatase Total Protein Albumin Vancomycin Trough Microbiology Microbiology Results: Microbiology 12/15/19 00:16 Blood - Venous Blood Culture - Preliminary No growth after 48 hours. 12/15/19 00:16 Blood - Venous Blood Culture - Preliminary No growth after 48 hours. Progress Note: A&P Time Spent With Patient Time: 0 Total time spent with greater than 50% in coordination of care (as documented) at patient's floor/unit and/or counseling patient:: 0 Critical Care Time Critical Care Time (minutes): 90
--- NOTE | 2019-12-17 14:24 | HO.RADPN ---
RADIOLOGY Narrative Narrative: Right lobe of liver biopsy performed portably in ICU using coaxial system. 3 20g core biopsies obtained. No complication,
--- NOTE | 2019-12-17 14:32 | MHC.CM.PN ---
pt lives c his in their home. he reports that at baseline he is independent in his care. pt's can help him with any needs he may have. pt will have his son or daughter provide transport home. pt has a grandaughter that is a nurse and reportedly works or has worked at [employer]. for this reason he denies the need for vna despite the possibility of dsg change and monitoring needs . he feels his grandaughter is very capable of this and is planning to have her do it. pt also reports ambulating s any AD. dc plan is home no svcs. cm to cont. to follow.
--- NOTE | 2019-12-17 17:50 | PC.NURSE ---
SHIFT UPDATE; PT SEDATE AND INTUBATED WITH 7.5 ET TUBE AT 25 CM LOWER LIP DARIUS; VENTILATING PCV SETTINGS; LUNG SOUNDS RONCHEROUS ON R SIDE, COARSE, DIMINISHED, LEFT LUNG DIMINISHED WELL; TLC IN L FEM DSG CHANGED; SR ON MONITOR; ON PROPOFOL AND FENTANYL GTT FOR SEDATION AND PAIN MANAGEMENT; RESTRAINTS IN [place], RELEASED AT 1600 THIS AFTERNOON; PT LIVER BIOSPY DONE TODAY- AT BEDSIDE THIS AFTERNOON- DR BARRERA UPDATING ; LABS REVIEWED THIS AM WELL WITH GI MD DR SWENSON; TF RESUMED AFTER LIVER BIOPSY; ALBUMIN 100 ML GIVEN THIS AM; 10 MG IV VIT K GIVEN THIS EARLY AFTERNOON PRIOR TO LIVER BIOPSY PROCEDURE; 2 MG VERSED GIVEN PRIOR TO BIOPSY PROCEDURE WELL; BATHED, TURNED AND REPOSIITONED Q2H
[2019-12-17 18:26] LABS: Glucose, Whole Blood 272 mg/dL (60-115)
[2019-12-17 19:56] LABS: Sodium Urine Random < 20.0 mmol/L
[2019-12-17] MEDS: Lactated Ringers 500 ML IVCONT (20:38)
[2019-12-17] MEDS: vancomycin HCL 1,000 MG in 0.9 % Sodium Chloride 250 ML 180 MG IV (21:37)
[2019-12-17 23:12] LABS: Glucose, Whole Blood 265 mg/dL (60-115)
[2019-12-18] VITALS (30 sets, daily range): BP systolic 97–151; BP diastolic 49–78; PULSE 66–84; RESP 21–33; TEMP 36.3–38.2; O2SAT 90–97; BMI 30.8
--- NOTE | 2019-12-18 | XR_ITS ---
EXAMINATION: XR CHEST CLINICAL INFORMATION: Left pulmonary infiltrates. Follow-up. COMPARISON: Portable chest radiographs 12/16/2019, 12/15/2019, 2 view chest 12/15/2019 TECHNIQUE: Portable upright AP view of the chest was obtained. FINDINGS: Patient is slightly rotated to the left. The endotracheal tube tip is approximately 4.7 cm above saul. Orogastric tube is in the abdomen. There is clearing of the left pulmonary infiltrates from prior studies. The vascularity is normal. There is no lobar or segmental airspace consolidation or definite groundglass opacity. Some mild coarsening bronchiolar markings is suggested lower zones. The costophrenic sulci are clear. The heart is normal in size. IMPRESSION: 1. ET tube 4.7 cm above saul. 2. Orogastric tube in abdomen. 3. clearing left pulmonary infiltrates from prior studies.
[2019-12-18] MEDS: Piperacillin Sodium/Tazobactam 3.375 GM in 0.9 % Sodium Chloride 50 ML IV ×4 (00:52→18:24)
[2019-12-18 01:02] LABS: Strep Pneumo Ag urine Not Detected (Not Detected)
[2019-12-18] MEDS: fentaNYL citrate/NS 1,000 MCG/100 ML PLAST..BAG 20 MCG IVCONT ×5 (01:32→21:09)
[2019-12-18] MEDS: propofoL 1,000 MG/100 ML VIAL 25.29 MG IVCONT ×6 (03:34→22:13)
[2019-12-18 05:23] LABS: Glucose, Whole Blood 308 mg/dL (60-115)
[2019-12-18 06:00] LABS: Hemoglobin 11.8 g/dl (14.0-18.0); Mean Corpuscular HGB Conc 32.8 g/dl (31.0-36.0); Mean Corpuscular Hemoglobin 31.5 pg (27.0-33.0); Mean Platelet Volume 11.3 fL (9.4-12.4); Platelet Count 237 X10*3/uL (160-400); Red Blood Count 3.75 X10*6/uL (4.60-5.80); Red Cell Distribution Width 17.8 % (11.0-16.0)
[2019-12-18] MEDS: Insulin Lispro 100 UNIT/ML 3 ML VIAL SUBCUT ×3 (06:06→17:53)
[2019-12-18 06:19] LABS: Alanine Aminotransferase 208 U/L (0-40); Albumin Level 3.1 g/dL (3.5-5.0); Alkaline Phosphatase 374 U/L (39-117); Anion Gap 18 (12-20); Aspartate Amino Transferase 190 U/L (5-37); Bilirubin Total 10.3 mg/dL (0.0-1.0); Blood Urea Nitrogen 53 mg/dL (9-16); Carbon Dioxide 19 mmol/L (22-29); Chloride 104 mmol/L (96-108); Creatinine Clr Calc Pharmacy 50.3; Estimated Glomerular Filt Rate 41; Glucose Random 314 mg/dL (60-115); Phosphorus 2.9 mg/dL (2.7-4.5); Potassium 4.3 mmol/l (3.3-5.1); Sodium 137 mmol/L (135-145); Total Protein 5.4 g/dL (6.5-8.0)
[2019-12-18 06:23] LABS: Base Excess VBG -2.7 mmol/L; HCO3 VBG 21 mmol/L; Oxygen Saturation VBG 85.5 %; PCO2 VBG 32 mmhg; PO2 VBG 52 mmhg; pH VBG 7.43 (7.32-7.43)
[2019-12-18 06:27] LABS: INTERNATIONAL NORM RATIO 1.1 (0.9-1.1); Prothrombin Time 12.6 SEC (10.8-13.0)
[2019-12-18 06:49] LABS: Vancomycin Random 26.2 mcg/mL (15-20)
[2019-12-18] MEDS: 0.9 % Sodium Chloride Flush 3 ML SYRINGE IVFLUSH ×3 (07:21→23:57)
[2019-12-18] MEDS: Albuterol/Iprat 2.5/0.5MG 3 ML AMPUL.NEB INHALE ×4 (07:55→19:21)
[2019-12-18] MEDS: Heparin Sodium,Porcine 5,000 UNIT/ML VIAL 5000 UNIT SUBCUT ×2 (09:55→17:53)
[2019-12-18] MEDS: Chlorhexidine Gluc Oral Rinse 15 ML MOUTHWASH BUCCAL ×3 (09:55→20:41)
--- NOTE | 2019-12-18 10:21 | P.CDIC_ITS ---
CDI Concurrent Query Service Date: 12/18/19 Documentation Clarification: Please clarify if you are treating a proba ble/suspected/likely or confirmed: Consistency: Sepsis w/o organ failure POA Severe sepsis with acute organ failure (res, renal) POA, resolved, txt, rule out Please specify if known Provider Response: Acute Respiratory Failure PLEASE DO NOT DELETE/MODIFY EXISTING CONTENT Additional information is needed in order to code to the highest accuracy and appropriate Severity of Illness (SOI). Please clarify the information noted below in your progress notes and discharge summary. Risk Factors/Clinical Indicators/Treatments ED: Sepsis - approached as a sepsis pt with labs, fluids, antibiotics, b/c & LA being ordered. H&P: Sepsis, source most likely being lung vs. urine, CT showing concern for superinfection. IV Zosyn, Vancomycin PN: 12/14 - Severe sepsis, vancomycin & piperacillin/azobactam for care of superinfection. Liver mets. ICU note: Pneumonia, no evidence of septic shock, elevated LA 2nd to liver mets. CDS: Ann Tom CCS, CDIS Contact Number: [phone] Please Review the information above and exercise your independent professional judgment in responding to the query. If you concur, pleas document in the PROGRESS NOTES and DISCHARGE SUMMARY. If you do not agree with the query, please document in the query above. THIS QUERY IS PART OF THE PERMANENT MEDICAL RECORD
[2019-12-18 11:43] LABS: Glucose, Whole Blood 281 mg/dL (60-115)
--- NOTE | 2019-12-18 12:23 | P.PNCC_ITS ---
Subjective Subjective Date of Service: 12/18/19 Interval History: Mr. Terry was admitted to the ICU on December 14 because of acute respiratory failure. The patient is a 54-year-old gentleman, homeless, former smoker and daily heroin user, with underlying history of COPD, and hepatitis-C. Admitted on 12/15/2019 with progressive dyspnea, abdominal pain, and weakness for several days. Juandiced on exam. 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 pneumonia. COVID was negative. The patient was initially treated for pneumonia but very shortly developed progressive respiratory distress and hypoxemia requiring transfer to intensive care unit and tracheal intubation and ventilation. Femoral line placed bec of SVC mass effect. Since then he has been sedated and treated with broad-spectrum antibiotics (Vanco and Zosyn) and vitamin K (initial INR was 1.7, now down to 1.1). Sputum was sent for cytology. 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 Additional studies are pending. On exam this morning, the patient is well sedated on propofol 50 mcg, and fentanyl 200 mcg. Heart rate is 78, blood pressure 146/79, respiratory rate is 30 on AC/PC rate 24, pressures 24/12, i:e 1:2, 40%, with Ve 18 L, PIP 35cm, and sat 93%. Central venous blood gas this morning showed 7.43/32/-2. The patient is grossly jaundiced. There is no jugular venous distention at 30 degrees. Auscultation of the chest shows diffuse moderate rhonchi, with a normal expiratory phase. Heart tones barely audible. The abdomen shows a 6 finger breath very hard liver, also extending past the midline. The abdomen is otherwise benign. There is trivial lower extrem and central edema. His arms, raji the right, look puffy, altho no clear pitting edema. In his left upper extremity, he has an old scar with marked induration in the upper left forearm just below the antecubital fossa, presumably the remnant of old injection drug abuse. LABORATORY DATA: As below. Notably, BUN/creatinine are up to 5/1.7 (from 47/1.7 yest). Tbili up to 10.3. Transaminases roughly steady. Urine Na yest was < 20, and he was given a fluid bolus. CXR this morning shows some clearing of the hazy infiltrate seen in his left lung on prev films. Average u/o is 30-40 cc/hr. IMPRESSION: 1. Pulmonary malignancy with widespread metastases, possible/probable SVC compression (per radiology). 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 Sputum cytology still pending. 2. Diffuse left pulmonary infiltrate seen on CT scan. Very atypical for in fectious pneumonia (bacterial, atypical, or viral). COVID is negative. By default then, would likely be cancer. 3. Acute hypoxemic respiratory failure. 4. Possible pneumonia. For now continue Vanco and Zosyn. 4. Acute kidney injury. Renal indices are steady, I?ll hold off on giving him more fluid for now. Recheck urine Na tomorrow. 5. Hepatic failure with jaundice and coagulopathy. Secondary to liver mets. 6. Hyperglycemia. Likely secondary to hepatic failure. Continue with sliding scale insulin. 7. Not septic, in my opinion. Otherwise usual supportive care. Prognosis is grave. I spoke to his at some length yesterday about that. I?m doubtful that the patient will survive this hospitalization. Discussed with Dr. Nuñez this afternoon. Chemotherapy as possible, but he is not really in a condition to be given chemotherapy. Options appear to be limited. And he is in no condition to be transferred to a higher level hospital. Critical care time: 70+ minutes. Physical Exam Vital Signs: Vital Signs: Vital Signs Temp Pulse Resp BP Pulse Ox 12/18/19 11:00 99.9 F 72 27 H 140/73 H 95 12/18/19 10:00 99.9 F 66 25 H 143/72 H 94 12/18/19 09:00 99.9 F 75 30 H 138/71 97 12/18/19 08:00 97.4 F 84 21 H 97/49 L 90 L 12/18/19 07:00 100.0 F 75 30 H 136/70 97 12/18/19 06:00 75 29 H 143/70 H 97 12/18/19 05:00 100.8 F H 75 25 H 127/67 97 12/18/19 04:00 100.6 F H 75 24 H 136/69 96 12/18/19 03:00 78 32 H 135/75 97 12/18/19 02:00 78 33 H 128/70 97 12/18/19 01:00 81 31 H 128/61 97 12/18/19 00:00 100.4 F 74 30 H 129/65 97 12/17/19 23:00 74 34 H 127/64 97 12/17/19 22:00 78 30 H 130/62 97 12/17/19 21:00 79 26 H 131/65 96 12/17/19 20:00 100.2 F 82 30 H 128/62 96 12/17/19 19:00 76 30 H 144/70 H 96 12/17/19 18:00 100 F 74 26 H 153/73 H 96 12/17/19 16:53 100.2 F 74 27 H 138/65 96 12/17/19 16:00 100.2 F 75 30 H 148/69 H 96 12/17/19 15:30 74 H 12/17/19 15:20 99.9 F 73 31 H 141/64 H 97 12/17/19 15:00 73 12/17/19 14:50 99.9 F 72 27 H 139/65 96 12/17/19 14:20 99.9 F 72 31 H 154/76 H 96 12/17/19 13:48 99.9 F 78 30 H 137/70 96 12/17/19 13:00 99.7 F 79 28 H 160/75 H 97 Body Mass Index 30.8 Objective Data Labs CBC & Chem 7: 12/19/19 05:44 12/19/19 05:44 Labs: Laboratory Results - last 24 hr 12/15/19 12/17/19 12/17/19 11:48 06:04 18:22 WBC RBC Hgb Hct MCV MCH MCHC RDW Plt Count MPV Absolute Nucleated RBC Nucleated RBC % (auto) PT INR VBG pH VBG pCO2 VBG Oxygen Liters/Min VBG pO2 VBG HCO3 VBG O2 Saturation VBG Base Excess Sodium Potassium Chloride Carbon Dioxide Anion Gap BUN Creatinine Estim Creat Clear Calc Estimated GFR POC Glucose 272 H Random Glucose Calcium Phosphorus Total Bilirubin AST ALT Alkaline Phosphatase Total Protein Albumin Procalcitonin 9.10 Ur Random Sodium Random Vancomycin Ur Strep pneumoniae Ag Not Detected 12/17/19 12/17/19 12/18/19 18:54 23:09 05:17 WBC RBC Hgb Hct MCV MCH MCHC RDW Plt Count MPV Absolute Nucleated RBC Nucleated RBC % (auto) PT INR VBG pH VBG pCO2 VBG Oxygen Liters/Min VBG pO2 VBG HCO3 VBG O2 Saturation VBG Base Excess Sodium Potassium Chloride Carbon Dioxide Anion Gap BUN Creatinine Estim Creat Clear Calc Estimated GFR POC Glucose 265 H 308 H Random Glucose Calcium Phosphorus Total Bilirubin AST ALT Alkaline Phosphatase Total Protein Albumin Procalcitonin Ur Random Sodium < 20.0 Random Vancomycin Ur Strep pneumoniae Ag 12/18/19 12/18/19 12/18/19 05:41 05:41 05:41 WBC 16.0 H RBC 3.75 L Hgb 11.8 L Hct 36.0 L MCV 96.0 MCH 31.5 MCHC 32.8 RDW 17.8 H Plt Count 237 MPV 11.3 Absolute Nucleated RBC 0.000 Nucleated RBC % (auto) 0.0 PT 12.6 INR 1.1 VBG pH VBG pCO2 VBG Oxygen Liters/Min VBG pO2 VBG HCO3 VBG O2 Saturation VBG Base Excess Sodium Potassium Chloride Carbon Dioxide Anion Gap BUN Creatinine Estim Creat Clear Calc Estimated GFR POC Glucose Random Glucose Calcium Phosphorus Total Bilirubin AST ALT Alkaline Phosphatase Total Protein Albumin Procalcitonin Ur Random Sodium Random Vancomycin 26.2 H* Ur Strep pneumoniae Ag 12/18/19 12/18/19 12/18/19 05:41 05:41 11:39 WBC RBC Hgb Hct MCV MCH MCHC RDW Plt Count MPV Absolute Nucleated RBC Nucleated RBC % (auto) PT INR VBG pH 7.43 VBG pCO2 32 VBG Oxygen Liters/Min TNP VBG pO2 52 VBG HCO3 21 VBG O2 Saturation 85.5 VBG Base Excess -2.7 Sodium 137 Potassium 4.3 Chloride 104 Carbon Dioxide 19 L Anion Gap 18 BUN 53 H Creatinine 1.74 H Estim Creat Clear Calc 50.3 Estimated GFR 41 POC Glucose 281 H Random Glucose 314 H D Calcium 8.0 L Phosphorus 2.9 Total Bilirubin 10.3 H AST 190 H ALT 208 H Alkaline Phosphatase 374 H Total Protein 5.4 L Albumin 3.1 L Procalcitonin Ur Random Sodium Random Vancomycin Ur Strep pneumoniae Ag Microbiology Microbiology Results: Microbiology 12/15/19 00:16 Blood - Venous Blood Culture - Preliminary No growth after 48 hours. 12/15/19 00:16 Blood - Venous Blood Culture - Preliminary No growth after 48 hours. Progress Note: A&P Time Spent With Patient Time: Total time spent is greater than 50% in coordination of care (as documented) at patient's floor/unit and/or counseling patient: Total time spent with greater than 50% in coordination of care (as documented) at patient's floor/unit and/or counseling patient:: 0 Critical Care Time Critical Care Time (minutes): 60
[2019-12-18 17:51] LABS: Glucose, Whole Blood 334 mg/dL (60-115)
--- NOTE | 2019-12-18 18:36 | PC.NURSE ---
Pt remained sedated on PC ventilator settings for this shift. He was noted to be breathing at a rate of 30 with EtCo2 in low 20s. This was reported to RT as well as . The peak inspiratory pressures were decreased from 24 to 22 per in response to this finding. I was told by RT that the patient had been breathing rapidly with low EtCO2 for past couple of days. Otherwise pt with no purposeful responses but is moving head and neck in the bed frequently. At times he dislodges the vent from the ETT. Biopsy results reviewed by today. Family called and reported that they would be visiting to speak with the physician but never came to the hospital or called to speak with him. At this time VS stable and pt is requiring no vasopressive support.
[2019-12-18] MEDS: Midazolam HCl/PF 2 MG/2 ML VIAL IVPUSH (18:50)
--- NOTE | 2019-12-18 21:01 | P.PNHO_ITS ---
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 The biopsy of the liver suggest small cell carconoma but re port is not complete. Review of Systems - Eyes Reports irritation - ENT Reports system reviewed and no additional complaints, except as documented - Cardiovascular Reports shortness of breath - Respiratory Reports wheezing - Gastrointestinal Reports incontinent of stools - Genitourinary Genitourinary: Reports difficulty urinating - Musculoskeletal Reports decreased muscle mass - Integumentary/Breasts Skin/Breast: Reports change in skin color - Neurologic Reports behavioral changes, Reports weakness - Psychiatric Reports lack of enjoyment - Endocrine Reports other - Hematologic/Lymphatic Reports other - Allergic/Immunologic Reports other [facility] Medical History: Medical History (Last Updated 12/15/19 @ 04:53 by Abilio Malloy MD) COPD (chronic obstructive pulmonary disease) Hx of hepatitis C Hx of hypertensive heart disease Smoking status: Former smoker Home Medications and Allergies Current Medications: Current Medications Generic Name Dose Route Start Last Admin Trade Name Freq PRN Reason Stop Dose Admin Albuterol/Ipratropium 3 ml 12/15/19 08:00 12/18/19 19:21 Albuterol/Iprat 2.5/0.5mg 3 Ml Ampul.Neb INHALE 3 ml RQ4H WHILE AWAKE JING Administration Chlorhexidine Gluconate 15 ml 12/15/19 21:00 12/18/19 20:41 Chlorhexidine Gluc Oral Rinse 15 Ml Mouthwash BUCCAL 15 ml TID JING Administration Heparin Sodium (Porcine) 5,000 unit 12/18/19 10:00 12/18/19 17:53 Heparin Sodium,Porcine 5,000 Unit/Ml Vial SUBCUT 5,000 unit Q8H JING Administration Piperacillin Sod/Tazobactam 50 mls @ 100 mls/hr 12/15/19 07:00 12/18/19 19:06 Sod 3.375 gm/ Sodium Chloride IV Infused Q6H JING Infusion Propofol 1,000 mg in 100 mls @ 0 mls/hr 12/15/19 15:15 12/18/19 19:13 Diprivan IVCONT 50 mcg/kg/min .Q0M JING 25.29 mls/hr Administration Protocol Per Protocol Fentanyl 1,000 mcg in 100 mls @ 0 mls/hr 12/15/19 15:30 12/18/19 15:54 Sublimaze/Ns IVCONT 200 mcg/hr .Q0M JING 20 mls/hr Administration Protocol Per Protocol Midazolam HCl 50 mg in 50 mls @ 2 mls/hr 12/15/19 17:00 12/18/19 17:09 Versed IVCONT Not Given .Q24H JING 2 MG/HR Insulin Human Lispro 0 unit 12/17/19 12:00 12/18/19 17:53 Insulin Lispro 100 Unit/Ml 3 Ml Vial SUBCUT 8 unit Q6H JING Administration Protocol Midazolam HCl 2 mg 12/15/19 16:04 12/18/19 18:50 Midazolam Hcl/Pf 2 Mg/2 Ml Vial IVPUSH 2 mg Q2H PRN Administration Sedation Omeprazole 40 mg 12/16/19 06:30 12/18/19 06:06 Omeprazole 20 Mg/10 Ml Susp.Recon PO 40 mg DAILY@0630 JING Administration Sodium Chloride 3 ml 12/15/19 08:00 12/18/19 17:09 0.9 % Sodium Chloride Flush 3 Ml Syringe IVFLUSH 3 ml QSHIFT JING Administration Home Medications Medication Instructions Recorded Confirmed Type Unobtainable 12/15/19 12/15/19 History Allergies Allergy/AdvReac Type Severity Reaction Status Date / Time No Known Allergies Allergy Verified 12/14/19 23:31 Exam Vital signs: Vital Signs Temp 100.2 F 12/18/19 20:54 Pulse 82 12/18/19 20:54 Resp 28 H 12/18/19 20:54 BP 137/71 12/18/19 20:54 Pulse Ox 93 12/18/19 20:54 Intake & Output 12/18/19 12/18/19 12/19/19 06:59 18:59 06:59 Intake Total 2228.000 / 3609.085 1797.823 / 2007.823 210 / 2007.823 Output Total 455 / 914 555 / 590 35 / 590 Balance 1773.000 / 2695.085 1242.823 / 1417.823 175 / 1417.823 Urine Output (Average ml/kg/hr) 0.41 0.50 0.03 Intake: Intake, Oral Amount 600 / 600 Intake, Tube Feeding Amount 320 / 400 680 / 740 60 / 740 Intake, Tube Irrigant Amount 400 / 700 Intake, IV Amount 1508.000 / 2509.085 517.823 / 667.823 150 / 667.823 Piperacillin Sodium/Tazobactam 150 / 250 50 / 100 50 / 100 3.375 gm In 0.9 % Sodium Chloride 50 ml @ 100 mls/hr IV Q6H JING Rx#:[id number] vancomycin HCL 1,000 mg In 0.9 270 / 540 % Sodium Chloride 250 ml @ 180 mls/hr IV Q12H JING Rx#: [id number] Lactated Ringers 500 ml @ 500 500 / 500 mls/hr IVCONT .Q1H JING Rx#: [id number] fentaNYL citrate/NS 1,000 mcg 288.000 / 488.000 187 / 187 In 100 ml @ Per Protocol IVCONT .Q0M JING Rx#:[id number] propofoL 1,000 mg In 100 ml @ 300 / 580.085 280.823 / 380.823 100 / 380.823 Per Protocol IVCONT .Q0M [facility]ING Rx #:[id number] Output: Output, Urine Amount (Catheter) 455 / 914 555 / 590 35 / 590 Urethral 455 / 914 555 / 590 35 / 590 Other: Number of Incontinent Bowel 1 Movements Urine Color Cristhian Tea Tea Weight 92 kg Weight 92 kg Body Mass Index 30.8 Data - Labs CBC & Chem 7: 12/18/19 05:41 12/18/19 05:41 Labs: Laboratory Results - last 24 hr 12/15/19 12/17/19 12/18/19 11:48 23:09 05:17 WBC RBC Hgb Hct MCV MCH MCHC RDW Plt Count MPV Absolute Nucleated RBC Nucleated RBC % (auto) PT INR VBG pH VBG pCO2 VBG Oxygen Liters/Min VBG pO2 VBG HCO3 VBG O2 Saturation VBG Base Excess Sodium Potassium Chloride Carbon Dioxide Anion Gap BUN Creatinine Estim Creat Clear Calc Estimated GFR POC Glucose 265 H 308 H Random Glucose Calcium Phosphorus Total Bilirubin AST ALT Alkaline Phosphatase Total Protein Albumin Random Vancomycin Ur Strep pneumoniae Ag Not Detected 12/18/19 12/18/19 12/18/19 05:41 05:41 05:41 WBC 16.0 H RBC 3.75 L Hgb 11.8 L Hct 36.0 L MCV 96.0 MCH 31.5 MCHC 32.8 RDW 17.8 H Plt Count 237 MPV 11.3 Absolute Nucleated RBC 0.000 Nucleated RBC % (auto) 0.0 PT 12.6 INR 1.1 VBG pH VBG pCO2 VBG Oxygen Liters/Min VBG pO2 VBG HCO3 VBG O2 Saturation VBG Base Excess Sodium Potassium Chloride Carbon Dioxide Anion Gap BUN Creatinine Estim Creat Clear Calc Estimated GFR POC Glucose Random Glucose Calcium Phosphorus Total Bilirubin AST ALT Alkaline Phosphatase Total Protein Albumin Random Vancomycin 26.2 H* Ur Strep pneumoniae Ag 12/18/19 12/18/19 12/18/19 05:41 05:41 11:39 WBC RBC Hgb Hct MCV MCH MCHC RDW Plt Count MPV Absolute Nucleated RBC Nucleated RBC % (auto) PT INR VBG pH 7.43 VBG pCO2 32 VBG Oxygen Liters/Min TNP VBG pO2 52 VBG HCO3 21 VBG O2 Saturation 85.5 VBG Base Excess -2.7 Sodium 137 Potassium 4.3 Chloride 104 Carbon Dioxide 19 L Anion Gap 18 BUN 53 H Creatinine 1.74 H Estim Creat Clear Calc 50.3 Estimated GFR 41 POC Glucose 281 H Random Glucose 314 H D Calcium 8.0 L Phosphorus 2.9 Total Bilirubin 10.3 H AST 190 H ALT 208 H Alkaline Phosphatase 374 H Total Protein 5.4 L Albumin 3.1 L Random Vancomycin Ur Strep pneumoniae Ag 12/18/19 17:42 WBC RBC Hgb Hct MCV MCH MCHC RDW Plt Count MPV Absolute Nucleated RBC Nucleated RBC % (auto) PT INR VBG pH VBG pCO2 VBG Oxygen Liters/Min VBG pO2 VBG HCO3 VBG O2 Saturation VBG Base Excess Sodium Potassium Chloride Carbon Dioxide Anion Gap BUN Creatinine Estim Creat Clear Calc Estimated GFR POC Glucose 334 H Random Glucose Calcium Phosphorus Total Bilirubin AST ALT Alkaline Phosphatase Total Protein Albumin Random Vancomycin Ur Strep pneumoniae Ag Progress Note: A/P (1) Lung malignancy Status: Acute Assessment and plan: Will await definitive biopsy report. His renal function is worsening. I will discuss using chemotherapy with pharmacy and ICU. - Time Spent With Patient Total time spent is greater than 50% in coordination of care (as documented) at patient's floor/unit and/or counseling patient: 15 - 24 minutes
[2019-12-18 23:34] LABS: Glucose, Whole Blood 333 mg/dL (60-115)
[2019-12-18 23:39] LABS: Vancomycin Trough 15.9 mcg/mL (10.0-20.0)
[2019-12-19] VITALS (31 sets, daily range): BP systolic 122–150; BP diastolic 64–82; PULSE 74–85; RESP 21–32; TEMP 37.6–38.2; O2SAT 95–96; BMI 30.2
[2019-12-19] MEDS: Insulin Lispro 100 UNIT/ML 3 ML VIAL SUBCUT ×4 (00:01→17:36)
[2019-12-19] MEDS: Piperacillin Sodium/Tazobactam 3.375 GM in 0.9 % Sodium Chloride 50 ML IV ×4 (00:02→17:37)
[2019-12-19] MEDS: Heparin Sodium,Porcine 5,000 UNIT/ML VIAL 5000 UNIT SUBCUT ×3 (01:24→17:27)
[2019-12-19] MEDS: fentaNYL citrate/NS 1,000 MCG/100 ML PLAST..BAG 20 MCG IVCONT ×5 (01:25→22:02)
[2019-12-19] MEDS: propofoL 1,000 MG/100 ML VIAL 25.29 MG IVCONT ×6 (02:27→21:32)
[2019-12-19 05:40] LABS: Glucose, Whole Blood 300 mg/dL (60-115)
[2019-12-19 06:17] LABS: Hematocrit 35.6 % (42-52); Hemoglobin 12.1 g/dl (14.0-18.0); Mean Corpuscular Hemoglobin 32.7 pg (27.0-33.0); Mean Corpuscular Volume 96.2 fL (80-98); Mean Platelet Volume 12.1 fL (9.4-12.4); NRBC Pct Auto 0.1 /100WBC (0.0-0.2); Platelet Count 208 X10*3/uL (160-400); Red Cell Distribution Width 17.3 % (11.0-16.0); White Blood Count 16.5 X10*3/uL (4.8-10.8)
--- NOTE | 2019-12-19 06:39 | PC.NURSE ---
CARE ASSUMED 23;15...REMAINS TUBED/VENTED...AC/PCV MODE...PROPOFOL 50 MCG/KG/HR & FENTANYL 200 MCG/HR...RR 24-30...MOVES HEAD SIDE TO SIDE BUT NOT TO COMMAND...EXTREMETIES FLACCID...SCLERA ICTERIC...T-MAX 100.6 OVERNIGHT...ELI ORANGE TO TEA COLOURED URINE...URINE OUTPUT DECREASED TO 15 CC/HR OVERNIGHT...URINE SEDIMENTED...ELI IRRIGATED W/O RETURN...ELI D/C'D INTACT...INCONTINAT LARGE AMOUNT URINE WHEN D/C'D..NEW 316 FR ELI RE-INSERTED...DRAINING HARSHA-ORANGE URINE 30-35 CC/HR...NSR..NO ECTOPY...GRIMACES TO NOXIOUS STIMULI BUT NO RESPONSE TO VERBAL COMMAND
[2019-12-19 06:58] LABS: INTERNATIONAL NORM RATIO 1.1 (0.9-1.1); Prothrombin Time 12.6 SEC (10.8-13.0)
[2019-12-19 07:45] LABS: Glucose, Whole Blood 274 mg/dL (60-115)
[2019-12-19 07:51] LABS: Alanine Aminotransferase 203 U/L (0-40); Albumin Level 2.8 g/dL (3.5-5.0); Alkaline Phosphatase 497 U/L (39-117); Anion Gap 20 (12-20); Aspartate Amino Transferase 180 U/L (5-37); Bilirubin Direct 8.7 mg/dL (0.0-0.5); Bilirubin Total 10.8 mg/dL (0.0-1.0); Blood Urea Nitrogen 49 mg/dL (9-16); Calcium 7.8 mg/dL (8.4-10.2); Carbon Dioxide 17 mmol/L (22-29); Chloride 101 mmol/L (96-108); Creatinine Clr Calc Pharmacy 56.2; Estimated Glomerular Filt Rate 45; Glucose Fasting 311 mg/dL (60-99); Potassium 4.4 mmol/l (3.3-5.1); Sodium 134 mmol/L (135-145); Total Protein 5.5 g/dL (6.5-8.0)
[2019-12-19] MEDS: Albuterol/Iprat 2.5/0.5MG 3 ML AMPUL.NEB INHALE ×4 (07:55→19:32)
[2019-12-19] MEDS: Chlorhexidine Gluc Oral Rinse 15 ML MOUTHWASH BUCCAL ×3 (07:58→20:15)
[2019-12-19] MEDS: 0.9 % Sodium Chloride Flush 3 ML SYRINGE IVFLUSH ×2 (07:58→17:26)
[2019-12-19] MEDS: Midazolam HCl/PF 2 MG/2 ML VIAL IVPUSH (07:59)
[2019-12-19 08:05] LABS: Sodium Urine Random < 20.0 mmol/L
[2019-12-19 08:21] LABS: Band Neutrophils Percent 8 % (3-5); Lymphocytes Absolute Manual 0.5 X10*3/uL (0.6-4.8); Lymphocytes Percent Manual 3 % (20-40); Metamyelocytes Absolute 0.7 X10*3/uL; Metamyelocytes Percent 4 %; Monocytes Absolute Manual 0.8 X10*3/uL (0.0-1.2); Monocytes Percent Manual 5 % (2-11); Myelocytes Absolute 0.3 X10*/uL; Myelocytes Percent 2 %; Neutrophils Absolute Manual 14.2 X10*3/uL (2.2-7.9); Neutrophils Percent Manual 78 % (45-73)
[2019-12-19 08:22] LABS: Macrocytosis 1+; Platelet Estimate NORMAL (NORMAL); Platelet Morphology Comment NORMAL; RBC Morphology NOTED; Target Cells 1+
--- NOTE | 2019-12-19 10:18 | MHC.CLN ---
F/U PT TOLERATING PROMOTE AT MAX GOAL 60CC/HR PROVIDES 1440KCALS (2100KCALS WITH SEDATION; 28KCALS/KG), 90G PROTEIN (1.2G/KG), 1208CC FREE WATER FROM FORMULA WILL D/C WATER FLUSHES R/T LOW Na DISCUSSED AT MDRs NOTED ANASARCA PER NSG FOLLOWING
[2019-12-19 11:07] LABS: Glucose Urine UA NEG (NEG); Leukocyte Esterase Urine NEG (NEG); Nitrite Urine NEG (NEG); PH 6.5 (5.0-8.0); Specific Gravity - Urine 1.025 (1.005-1.025); Urine Blood 2+ (NEG); Urine Ketones 5 MG/DL (NEG); Urine Protein 1+ MG/DL (NEG-TRACE)
[2019-12-19 11:10] LABS: Appearance Urine CLOUDY; Color Urine AMBER
[2019-12-19 11:19] LABS: RBC Urine TNTC /HPF (0); UACC CULT YES
--- NOTE | 2019-12-19 11:36 | MHC.CM.PN ---
Patient is vented and sedated. Poor prognosis, homeless, on IV zosyn and liver Bx done yesterday. CM will continue to follow for discharge needs.
[2019-12-19 11:39] LABS: Glucose, Whole Blood 281 mg/dL (60-115)
--- NOTE | 2019-12-19 16:13 | P.PNHO_ITS ---
Medical Summary - Medical Summary Chief complaint: small cell carcinoma of lung Medical Summary: He remains intubated. Interval History Interval history: The pathology report is availabe as small cell. Review of Systems - Constitutional Reports anorexia - ENT Reports sore throat - Cardiovascular Reports fast heart rate - Respiratory Reports dyspnea on exertion - Gastrointestinal Reports abdominal pain - Musculoskeletal Reports stiffness - Neurologic Reports behavioral changes, Reports weakness PMFSH Medical History: Medical History (Last Updated 12/15/19 @ 04:53 by Abilio Malloy MD) COPD (chronic obstructive pulmonary disease) Hx of hepatitis C Hx of hypertensive heart disease Smoking status: Former smoker Home Medications and Allergies Current Medications: Current Medications Generic Name Dose Route Start Last Admin Trade Name Freq PRN Reason Stop Dose Admin Albuterol/Ipratropium 3 ml 12/15/19 08:00 12/19/19 15:21 Albuterol/Iprat 2.5/0.5mg 3 Ml Ampul.Neb INHALE 3 ml RQ4H WHILE AWAKE JING Administration Chlorhexidine Gluconate 15 ml 12/15/19 21:00 12/19/19 14:36 Chlorhexidine Gluc Oral Rinse 15 Ml Mouthwash BUCCAL 15 ml TID JING Administration Heparin Sodium (Porcine) 5,000 unit 12/18/19 10:00 12/19/19 07:58 Heparin Sodium,Porcine 5,000 Unit/Ml Vial SUBCUT 5,000 unit Q8H JING Administration Piperacillin Sod/Tazobactam 50 mls @ 100 mls/hr 12/15/19 07:00 12/19/19 12:59 Sod 3.375 gm/ Sodium Chloride IV Infused Q6H JING Infusion Propofol 1,000 mg in 100 mls @ 0 mls/hr 12/15/19 15:15 12/19/19 14:30 Diprivan IVCONT 50 mcg/kg/min .Q0M JING 25.29 mls/hr Administration Protocol Per Protocol Fentanyl 1,000 mcg in 100 mls @ 0 mls/hr 12/15/19 15:30 12/19/19 11:55 Sublimaze/Ns IVCONT 200 mcg/hr .Q0M JING 20 mls/hr Administration Protocol Per Protocol Midazolam HCl 50 mg in 50 mls @ 2 mls/hr 12/15/19 17:00 12/18/19 17:09 Versed IVCONT Not Given .Q24H JING 2 MG/HR Insulin Human Lispro 0 unit 12/17/19 12:00 12/19/19 11:55 Insulin Lispro 100 Unit/Ml 3 Ml Vial SUBCUT 6 unit Q6H JING Administration Protocol Midazolam HCl 2 mg 12/15/19 16:04 12/19/19 07:59 Midazolam Hcl/Pf 2 Mg/2 Ml Vial IVPUSH 2 mg Q2H PRN Administration Sedation Omeprazole 40 mg 12/16/19 06:30 12/19/19 05:37 Omeprazole 20 Mg/10 Ml Susp.Recon PO 40 mg DAILY@0630 JING Administration Sodium Chloride 3 ml 12/15/19 08:00 12/19/19 07:58 0.9 % Sodium Chloride Flush 3 Ml Syringe IVFLUSH 3 ml QSHIFT JING Administration Home Medications Medication Instructions Recorded Confirmed Type Unobtainable 12/15/19 12/15/19 History Allergies Allergy/AdvReac Type Severity Reaction Status Date / Time No Known Allergies Allergy Verified 12/14/19 23:31 Exam Vital signs: Vital Signs Temp 100.2 F 12/19/19 14:00 Pulse 82 12/19/19 15:00 Resp 27 H 12/19/19 15:00 BP 134/66 12/19/19 15:00 Pulse Ox 96 12/19/19 15:00 Intake & Output 12/18/19 12/19/19 12/19/19 18:59 06:59 18:59 Intake Total 1797.823 / 3818.922 1961.099 / 3818.922 940 / 940 Output Total 555 / 948 333 / 948 360 / 360 Balance 1242.823 / 2870.922 1628.099 / 2870.922 580 / 580 Urine Output (Average ml/kg/hr) 0.50 0.31 0.33 Intake: Intake, Oral Amount 600 / 600 0 / 600 Intake, Tube Feeding Amount 680 / 1280 540 / 1280 540 / 540 Intake, Tube Irrigant Amount 660 / 660 Intake, IV Amount 517.823 / 1278.922 761.099 / 1278.922 400 / 400 Piperacillin Sodium/Tazobactam 50 / 150 100 / 150 100 / 100 3.375 gm In 0.9 % Sodium Chloride 50 ml @ 100 mls/hr IV Q6H [facility] Rx#:[id number] fentaNYL citrate/NS 1,000 mcg 187 / 472.333 285.333 / 472.333 100 / 100 In 100 ml @ Per Protocol IVCONT .Q0M JING Rx#:[id number] propofoL 1,000 mg In 100 ml @ 280.823 / 656.589 375.766 / 656.589 200 / 200 Per Protocol IVCONT .Q0M JING Rx #:[id number] Output: Output, Urine Amount 0 / 0 Output, Urine Amount (Catheter) 555 / 948 333 / 948 360 / 360 Urethral 555 / 948 333 / 948 360 / 360 Other: Number of Incontinent Voids 1 Number of Incontinent Bowel 1 Movements Urine Color Tea Tea Tea Weight 90.3 kg Weight 90.3 kg Body Mass Index 30.2 - Constitutional Comments: intubated and sedated - Routine HEENT Exam Head: Present: normocephalic - Routine Neck Exam Present: full ROM - Routine Chest/Breast/Axilla Exam Chest wall: Present: tenderness - Routine Respiratory Exam Present: patient mechanically ventilated - Routine Cardiovascular Exam Cardiovascular: Present: tachycardia - Routine Abdominal Exam Present: diminished bowel sounds - Routine Extremities Exam Present: normal inspection Data - Labs CBC & Chem 7: 12/19/19 05:44 12/19/19 05:44 Labs: Laboratory Results - last 24 hr 12/18/19 12/18/19 12/18/19 17:42 21:21 23:30 WBC RBC Hgb Hct MCV MCH MCHC RDW Plt Count MPV Immature Gran % (Auto) Neut % (Auto) Lymph % (Auto) [place] % (Auto) Eos % (Auto) Baso % (Auto) Lymph # (Auto) [place] # (Auto) Eos # (Auto) Baso # (Auto) Abs Immat Gran (auto) Absolute Neuts (auto) Absolute Nucleated RBC Nucleated RBC % (auto) Neutrophils % (Manual) Band Neutrophils % Lymphocytes % (Manual) Monocytes % (Manual) Metamyelocytes % Myelocytes % Abs Neuts (Manual) Lymphocytes # (Manual) Monocytes # (Manual) Metamyelocytes # Myelocytes # Platelet Estimate Plt Morphology Comment RBC Morphology Macrocytosis Target Cells Smear Path Review PT INR Sodium Potassium Chloride Carbon Dioxide Anion Gap BUN Creatinine Estim Creat Clear Calc Estimated GFR POC Glucose 334 H 333 H Fasting Glucose Calcium Total Bilirubin Direct Bilirubin AST ALT Alkaline Phosphatase Total Protein Albumin Urine Color Urine Appearance Urine pH Ur Specific [place] Urine Protein Urine Glucose (UA) Urine Ketones Urine Blood Urine Nitrite Ur Leukocyte Esterase Urine RBC Urine WBC Ur Squamous Epith Cells Urine Bacteria Ur Random Sodium Vancomycin Trough 15.9 12/19/19 12/19/19 12/19/19 05:30 05:44 05:44 WBC 16.5 H RBC 3.70 L Hgb 12.1 L Hct 35.6 L MCV 96.2 MCH 32.7 MCHC 34.0 RDW 17.3 H Plt Count 208 MPV 12.1 Immature Gran % (Auto) Cancelled Neut % (Auto) Cancelled Lymph % (Auto) Cancelled [place] % (Auto) Cancelled Eos % (Auto) Cancelled Baso % (Auto) Cancelled Lymph # (Auto) Cancelled [place] # (Auto) Cancelled Eos # (Auto) Cancelled Baso # (Auto) Cancelled Abs Immat Gran (auto) Cancelled Absolute Neuts (auto) Cancelled Absolute Nucleated RBC 0.020 H Nucleated RBC % (auto) 0.1 Neutrophils % (Manual) 78 H Band Neutrophils % 8 H Lymphocytes % (Manual) 3 L Monocytes % (Manual) 5 Metamyelocytes % 4 Myelocytes % 2 Abs Neuts (Manual) 14.2 H Lymphocytes # (Manual) 0.5 L Monocytes # (Manual) 0.8 Metamyelocytes # 0.7 Myelocytes # 0.3 Platelet Estimate NORMAL Plt Morphology Comment NORMAL RBC Morphology NOTED Macrocytosis 1+ Target Cells 1+ Smear Path Review SEE NOTE PT 12.6 INR 1.1 Sodium Potassium Chloride Carbon Dioxide Anion Gap BUN Creatinine Estim Creat Clear Calc Estimated GFR POC Glucose 300 H Fasting Glucose Calcium Total Bilirubin Direct Bilirubin AST ALT Alkaline Phosphatase Total Protein Albumin Urine Color Urine Appearance Urine pH Ur Specific [place] Urine Protein Urine Glucose (UA) Urine Ketones Urine Blood Urine Nitrite Ur Leukocyte Esterase Urine RBC Urine WBC Ur Squamous Epith Cells Urine Bacteria Ur Random Sodium Vancomycin Trough 12/19/19 12/19/19 12/19/19 05:44 05:44 07:30 WBC RBC Hgb Hct MCV MCH MCHC RDW Plt Count MPV Immature Gran % (Auto) Neut % (Auto) Lymph % (Auto) [place] % (Auto) Eos % (Auto) Baso % (Auto) Lymph # (Auto) [place] # (Auto) Eos # (Auto) Baso # (Auto) Abs Immat Gran (auto) Absolute Neuts (auto) Absolute Nucleated RBC Nucleated RBC % (auto) Neutrophils % (Manual) Band Neutrophils % Lymphocytes % (Manual) Monocytes % (Manual) Metamyelocytes % Myelocytes % Abs Neuts (Manual) Lymphocytes # (Manual) Monocytes # (Manual) Metamyelocytes # Myelocytes # Platelet Estimate Plt Morphology Comment RBC Morphology Macrocytosis Target Cells Smear Path Review PT INR Sodium Cancelled 134 L Potassium Cancelled 4.4 Chloride Cancelled 101 Carbon Dioxide Cancelled 17 L Anion Gap Cancelled 20 BUN Cancelled 49 H Creatinine Cancelled 1.60 H Estim Creat Clear Calc Cancelled 56.2 Estimated GFR Cancelled 45 POC Glucose Fasting Glucose Cancelled 311 H Calcium Cancelled 7.8 L Total Bilirubin 10.8 H Direct Bilirubin 8.7 H AST 180 H ALT 203 H Alkaline Phosphatase 497 H D Total Protein 5.5 L Albumin 2.8 L Urine Color Urine Appearance Urine pH Ur Specific [place] Urine Protein Urine Glucose (UA) Urine Ketones Urine Blood Urine Nitrite Ur Leukocyte Esterase Urine RBC Urine WBC Ur Squamous Epith Cells Urine Bacteria Ur Random Sodium < 20.0 Vancomycin Trough 12/19/19 12/19/19 12/19/19 07:42 10:20 11:30 WBC RBC Hgb Hct MCV MCH MCHC RDW Plt Count MPV Immature Gran % (Auto) Neut % (Auto) Lymph % (Auto) [place] % (Auto) Eos % (Auto) Baso % (Auto) Lymph # (Auto) [place] # (Auto) Eos # (Auto) Baso # (Auto) Abs Immat Gran (auto) Absolute Neuts (auto) Absolute Nucleated RBC Nucleated RBC % (auto) Neutrophils % (Manual) Band Neutrophils % Lymphocytes % (Manual) Monocytes % (Manual) Metamyelocytes % Myelocytes % Abs Neuts (Manual) Lymphocytes # (Manual) Monocytes # (Manual) Metamyelocytes # Myelocytes # Platelet Estimate Plt Morphology Comment RBC Morphology Macrocytosis Target Cells Smear Path Review PT INR Sodium Potassium Chloride Carbon Dioxide Anion Gap BUN Creatinine Estim Creat Clear Calc Estimated GFR POC Glucose 274 H 281 H Fasting Glucose Calcium Total Bilirubin Direct Bilirubin AST ALT Alkaline Phosphatase Total Protein Albumin Urine Color HARSHA Urine Appearance CLOUDY Urine pH 6.5 Ur Specific [place] 1.025 Urine Protein 1+ H Urine Glucose (UA) NEG Urine Ketones 5 Urine Blood 2+ H Urine Nitrite NEG Ur Leukocyte Esterase NEG Urine RBC TNTC H Urine WBC 5-9 H Ur Squamous Epith Cells NONE Urine Bacteria NONE Ur Random Sodium Vancomycin Trough Progress Note: A/P (1) Lung malignancy Start date: 12/19/19 Status: Acute (2) Metastatic lung cancer (metastasis from lung to other site) Status: Acute Assessment and plan: He has a diagnosisi of small cell carcinoma. I will try to arrange chemotherapy with ICU/pharmacy and oncology. - Time Spent With Patient Total time spent is greater than 50% in coordination of care (as documented) at patient's floor/unit and/or counseling patient: 15 - 24 minutes
[2019-12-19] MEDS: HYDROmorphone HCl 2 MG/ML VIAL IVPUSH ×3 (17:24→22:04)
[2019-12-19 17:36] LABS: Glucose, Whole Blood 327 mg/dL (60-115)
--- NOTE | 2019-12-19 17:59 | PM.CCPN ---
Subjective Subjective Date of Service: 12/19/19 Interval History: Mr. Terry was admitted to the ICU on December 14 because of acute respiratory failure. The patient is a 54-year-old gentleman, homeless, former smoker and daily heroin user, with underlying history of COPD, and hepatitis-C. Admitted on 12/15/2019 with progressive dyspnea, abdominal pain, and weakness for several days. Juandiced on exam. 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 pneumonia. COVID was negative. The patient was initially treated for pneumonia but very shortly developed progressive respiratory distress and hypoxemia requiring transfer to intensive care unit and tracheal intubation and ventilation. Femoral line placed bec of SVC mass effect. Since then he has been sedated and treated with broad-spectrum antibiotics (Vanco and Zosyn) and vitamin K (initial INR was 1.7, now down to 1.1). Sputum was sent for cytology. Liver biopsy was done Dec 16 and final results were reported back today as showing metastatic small-cell carcinoma. Sputum cytology came back negative. I met with Dr. Nuñez yesterday regarding options. He is looking into chemotherapy. On exam this afternoon, the patient is well sedated on propofol 50 mcg, and fentanyl 200 mcg. Heart rate is 80, blood pressure 144/69, respiratory rate is 28 on AC/PC rate 24, pressures 22/12, i:e 1:2, 40%, with Vt 600cc, Ve 17L, PIP 34cm, and sat 96%. The patient is grossly jaundiced. There is no jugular venous distention at 30 degrees. Auscultation of the chest shows diffuse moderate rhonchi, with a normal expiratory phase. Heart tones barely audible. The abdomen shows a 6 finger breath very hard liver, also extending past the midline. The abdomen is otherwise benign. There is <1+ lower extrem and central edema. His arms, raji the right, look puffy, altho no clear pitting edema. In his left upper extremity, he has an old scar with marked induration in the upper left forearm just below the antecubital fossa, presumably the remnant of old injection drug abuse. LABORATORY DATA: As below. Notably, BUN/creatinine are steady at 49/1.6. Tbili up to 10.8. Transaminases steady. MICROBIOLOGY: Sputum g stain showed 4+ polys with 2+ yeast, no bacteria reported. Culture growing 2+ yeast. Average u/o is 30-50 cc/hr. IMPRESSION: 1. Small cell lung cancer with widespread metastases, probable SVC compression. Awaiting decision on possible chemotherapy. 2. Diffuse left pulmonary infiltrate seen on CT scan. Very atypical for infectious pneumonia (bacterial, atypical, or viral). COVID is negative. By default then, would likely be cancer. 3. Acute hypoxemic respiratory failure. 4. ID: Was treated empirically with Vanco and Zosyn for pneumonia. On likely. I discontinued the Vanco yesterday and I?ll D/C the Zosyn now. 5. Acute kidney injury. Renal indices are steady. Despite the low U-Na, I?ll hold off on giving him more fluid for now. 6. Hepatic failure with jaundice and coagulopathy. Secondary to liver mets. 7. Hyperglycemia. Likely secondary to hepatic failure. Continue with sliding scale insulin. 8. Not septic, in my opinion. Discussed with Dr. Nuñez this afternoon. He?s looking into chemotherapy. The only avenue to survival is that he would have a rapid response, within days, to chemo for small cell ca. If not, then he won?t survive. Until he has a response to chemo, there?s no point in lightening up his sedation, bec he could never breathe with a minute vol of 17L. Otherwise usual supportive care. Prognosis is grave. I spoke to his [Esthela ] at some length again today, and outlined the plan for chemo and the prognosis, as noted above. Overall, I?m doubtful that he?ll survive this hospitalization. Critical care time: 70+ minutes. Physical Exam Vital Signs: Vital Signs: Vital Signs Temp Pulse Resp BP Pulse Ox 12/19/19 17:00 80 24 H 135/65 96 12/19/19 16:00 100.2 F 82 24 H 144/69 H 95 12/19/19 15:00 82 27 H 134/66 96 12/19/19 14:00 100.2 F 77 23 H 132/67 96 12/19/19 13:00 99.9 F 79 30 H 140/68 H 96 12/19/19 11:49 99.7 F 79 27 H 139/67 96 12/19/19 11:00 78 24 H 136/70 95 12/19/19 10:00 99.7 F 78 24 H 138/69 96 12/19/19 09:00 78 24 H 136/69 96 12/19/19 08:00 99.7 F 77 22 H 140/74 H 96 12/19/19 06:56 99.7 F 74 23 H 146/74 H 96 12/19/19 06:00 99.9 F 75 24 H 149/75 H 96 12/19/19 05:00 99.9 F 78 26 H 147/77 H 96 12/19/19 04:00 99.7 F 78 28 H 144/75 H 96 12/19/19 03:00 100.4 F 78 26 H 147/76 H 96 12/19/19 02:00 100.4 F 76 28 H 147/76 H 96 12/19/19 01:00 100.6 F H 80 32 H 150/82 H 96 12/19/19 00:00 100.6 F H 78 28 H 136/76 96 12/18/19 23:00 100.4 F 82 32 H 140/74 H 95 12/18/19 22:00 100.4 F 81 30 H 147/69 H 95 12/18/19 20:54 100.2 F 82 28 H 137/71 93 12/18/19 20:00 100.0 F 84 29 H 137/69 93 12/18/19 18:45 99.9 F 80 31 H 142/70 H 93 Body Mass Index 30.2 Objective Data Labs CBC & Chem 7: 12/19/19 05:44 12/19/19 05:44 Labs: Laboratory Results - last 24 hr 12/18/19 12/18/19 12/19/19 21:21 23:30 05:30 WBC RBC Hgb Hct MCV MCH MCHC RDW Plt Count MPV Immature Gran % (Auto) Neut % (Auto) Lymph % (Auto) Jenkins % (Auto) Eos % (Auto) Baso % (Auto) Lymph # (Auto) Jenkins # (Auto) Eos # (Auto) Baso # (Auto) Abs Immat Gran (auto) Absolute Neuts (auto) Absolute Nucleated RBC Nucleated RBC % (auto) Neutrophils % (Manual) Band Neutrophils % Lymphocytes % (Manual) Monocytes % (Manual) Metamyelocytes % Myelocytes % Abs Neuts (Manual) Lymphocytes # (Manual) Monocytes # (Manual) Metamyelocytes # Myelocytes # Platelet Estimate Plt Morphology Comment RBC Morphology Macrocytosis Target Cells Smear Path Review PT INR Sodium Potassium Chloride Carbon Dioxide Anion Gap BUN Creatinine Estim Creat Clear Calc Estimated GFR POC Glucose 333 H 300 H Fasting Glucose Calcium Total Bilirubin Direct Bilirubin AST ALT Alkaline Phosphatase Total Protein Albumin Urine Color Urine Appearance Urine pH Ur Specific [place] Urine Protein Urine Glucose (UA) Urine Ketones Urine Blood Urine Nitrite Ur Leukocyte Esterase Urine RBC Urine WBC Ur Squamous Epith Cells Urine Bacteria Ur Random Sodium Vancomycin Trough 15.9 12/19/19 12/19/19 12/19/19 05:44 05:44 05:44 WBC 16.5 H RBC 3.70 L Hgb 12.1 L Hct 35.6 L MCV 96.2 MCH 32.7 MCHC 34.0 RDW 17.3 H Plt Count 208 MPV 12.1 Immature Gran % (Auto) Cancelled Neut % (Auto) Cancelled Lymph % (Auto) Cancelled Jenkins % (Auto) Cancelled Eos % (Auto) Cancelled Baso % (Auto) Cancelled Lymph # (Auto) Cancelled Jenkins # (Auto) Cancelled Eos # (Auto) Cancelled Baso # (Auto) Cancelled Abs Immat Gran (auto) Cancelled Absolute Neuts (auto) Cancelled Absolute Nucleated RBC 0.020 H Nucleated RBC % (auto) 0.1 Neutrophils % (Manual) 78 H Band Neutrophils % 8 H Lymphocytes % (Manual) 3 L Monocytes % (Manual) 5 Metamyelocytes % 4 Myelocytes % 2 Abs Neuts (Manual) 14.2 H Lymphocytes # (Manual) 0.5 L Monocytes # (Manual) 0.8 Metamyelocytes # 0.7 Myelocytes # 0.3 Platelet Estimate NORMAL Plt Morphology Comment NORMAL RBC Morphology NOTED Macrocytosis 1+ Target Cells 1+ Smear Path Review SEE NOTE PT 12.6 INR 1.1 Sodium Cancelled Potassium Cancelled Chloride Cancelled Carbon Dioxide Cancelled Anion Gap Cancelled BUN Cancelled Creatinine Cancelled Estim Creat Clear Calc Cancelled Estimated GFR Cancelled POC Glucose Fasting Glucose Cancelled Calcium Cancelled Total Bilirubin Direct Bilirubin AST ALT Alkaline Phosphatase Total Protein Albumin Urine Color Urine Appearance Urine pH Ur Specific [place] Urine Protein Urine Glucose (UA) Urine Ketones Urine Blood Urine Nitrite Ur Leukocyte Esterase Urine RBC Urine WBC Ur Squamous Epith Cells Urine Bacteria Ur Random Sodium Vancomycin Trough 12/19/19 12/19/19 12/19/19 05:44 07:30 07:42 WBC RBC Hgb Hct MCV MCH MCHC RDW Plt Count MPV Immature Gran % (Auto) Neut % (Auto) Lymph % (Auto) Jenkins % (Auto) Eos % (Auto) Baso % (Auto) Lymph # (Auto) Jenkins # (Auto) Eos # (Auto) Baso # (Auto) Abs Immat Gran (auto) Absolute Neuts (auto) Absolute Nucleated RBC Nucleated RBC % (auto) Neutrophils % (Manual) Band Neutrophils % Lymphocytes % (Manual) Monocytes % (Manual) Metamyelocytes % Myelocytes % Abs Neuts (Manual) Lymphocytes # (Manual) Monocytes # (Manual) Metamyelocytes # Myelocytes # Platelet Estimate Plt Morphology Comment RBC Morphology Macrocytosis Target Cells Smear Path Review PT INR Sodium 134 L Potassium 4.4 Chloride 101 Carbon Dioxide 17 L Anion Gap 20 BUN 49 H Creatinine 1.60 H Estim Creat Clear Calc 56.2 Estimated GFR 45 POC Glucose 274 H Fasting Glucose 311 H Calcium 7.8 L Total Bilirubin 10.8 H Direct Bilirubin 8.7 H AST 180 H ALT 203 H Alkaline Phosphatase 497 H D Total Protein 5.5 L Albumin 2.8 L Urine Color Urine Appearance Urine pH Ur Specific [place] Urine Protein Urine Glucose (UA) Urine Ketones Urine Blood Urine Nitrite Ur Leukocyte Esterase Urine RBC Urine WBC Ur Squamous Epith Cells Urine Bacteria Ur Random Sodium < 20.0 Vancomycin Trough 12/19/19 12/19/19 12/19/19 10:20 11:30 17:32 WBC RBC Hgb Hct MCV MCH MCHC RDW Plt Count MPV Immature Gran % (Auto) Neut % (Auto) Lymph % (Auto) Jenkins % (Auto) Eos % (Auto) Baso % (Auto) Lymph # (Auto) Jenkins # (Auto) Eos # (Auto) Baso # (Auto) Abs Immat Gran (auto) Absolute Neuts (auto) Absolute Nucleated RBC Nucleated RBC % (auto) Neutrophils % (Manual) Band Neutrophils % Lymphocytes % (Manual) Monocytes % (Manual) Metamyelocytes % Myelocytes % Abs Neuts (Manual) Lymphocytes # (Manual) Monocytes # (Manual) Metamyelocytes # Myelocytes # Platelet Estimate Plt Morphology Comment RBC Morphology Macrocytosis Target Cells Smear Path Review PT INR Sodium Potassium Chloride Carbon Dioxide Anion Gap BUN Creatinine Estim Creat Clear Calc Estimated GFR POC Glucose 281 H 327 H Fasting Glucose Calcium Total Bilirubin Direct Bilirubin AST ALT Alkaline Phosphatase Total Protein Albumin Urine Color HARSHA Urine Appearance CLOUDY Urine pH 6.5 Ur Specific [place] 1.025 Urine Protein 1+ H Urine Glucose (UA) NEG Urine Ketones 5 Urine Blood 2+ H Urine Nitrite NEG Ur Leukocyte Esterase NEG Urine RBC TNTC H Urine WBC 5-9 H Ur Squamous Epith Cells NONE Urine Bacteria NONE Ur Random Sodium Vancomycin Trough Microbiology Microbiology Results: Microbiology 12/18/19 13:04 Sputum - Induced Gram Stain - Final 12/18/19 13:04 Sputum - Induced Sputum Culture - Preliminary Yeast 12/15/19 00:16 Blood - Venous Blood Culture - Preliminary No growth after 48 hours. 12/15/19 00:16 Blood - Venous Blood Culture - Preliminary No growth after 48 hours. Progress Note: A&P Time Spent With Patient Time: Total time spent is greater than 50% in coordination of care (as documented) at patient's floor/unit and/or counseling patient: Total time spent with greater than 50% in coordination of care (as documented) at patient's floor/unit and/or counseling patient:: 0 Critical Care Time Critical Care Time (minutes): 60
[2019-12-19] MEDS: fentaNYL citrate/NS 1,000 MCG/100 ML PLAST..BAG 22.5 MCG IVCONT (18:20)
--- NOTE | 2019-12-19 18:36 | PC.NURSE ---
changed order for fentanyl, however drip titration was on DC order. Wasted 81.333 ml to make drip on dc order infused. Documented drip titration with new order, unable to change container volume. Container volume states 100 ml but should be 81.333 ml. Spoke to Joe in pharmacy about this issue, unable to change container volume.
--- NOTE | 2019-12-19 18:39 | PC.NURSE ---
Pt noticably anasarca. Unable to palp pedal pulses - Doppler used. Pedal pulse points for doppler marked. Urine output remains marginal. As discussed at rounds, Na levels are lower, so free water flushes have been d/c. Pt does not have cough/gag or respond to painful stimuli. MD aware. Pupils are sluggish but reactive, with right pupil noticeably slower to respond to light. MD aware. Pt has gasping resp with rr +24/min. Fentanyl max changed by MD to 300mcg/hr. No bm this shift. Full chlorhexadine bath and bed change. Pt remains jaundiced with slightly distended abd. Extremities remain flaccid. Pt moves head but not to obvious stimuli. No tracking with eyes. Pt's mother and updated multiple times throughout shift. Waiting for biopsy results and oncology recommendations.
[2019-12-19 20:06] LABS: Legionella Ag Urine Not Detected (Not Detected)
[2019-12-19 23:54] LABS: Glucose, Whole Blood 351 mg/dL (60-115)
[2019-12-20] VITALS (30 sets, daily range): BP systolic 102–146; BP diastolic 61–75; PULSE 76–90; RESP 23–32; TEMP 38.1–39.4; O2SAT 90–96; BMI 30.8
--- NOTE | 2019-12-20 | CT_ITS ---
EXAMINATION: CT CHEST WITHOUT CONTRAST CLINICAL INFORMATION: Left-sided pneumonia/groundglass opacity. Follow-up. COMPARISON: Chest radiograph 12/18/2019, 12/16/2019, 12/15/2019, CT chest with contrast 12/15/2019. TECHNIQUE: Multidetector volumetric CT imaging of the chest is performed without intravenous contrast. Axial MIP volume rendering provided. Sagittal and coronal reformatted images were obtained. This CT examination was performed using dose optimization techniques as appropriate, variously including the following: *Automated exposure control *Adjustment of mA and/or kV according to patient size (this includes techniques or standardized protocols for targeted exams where dose is matched to indication/reason for exam; i.e. extremities or head) *Use of iterative reconstruction technique DLP: 171 mGy-cm FINDINGS: LUNGS: The diffuse left groundglass opacities are markedly decreased from prior exam 12/15/2019 with improvement greatest in the left upper lobe. The left lower lobe has numerous acinar airspace opacities. Consolidation and atelectasis right posterior medial upper lobe is borderline decreased. There is a small nodule again seen posterior upper lobe under 5 mm. There is some subtle groundglass opacity within the superior right middle lobe adjacent to the minor fissure. MEDIASTINUM: Bulky mediastinal adenopathy again noted with right hilar adenopathy and/or mass again seen. Heart size normal. No pericardial effusion. There is an endotracheal tube with tip approximately 3.2 cm above saul. Orogastric tube again noted with distal end below diaphragm. PLEURA: New small right effusion. AXILLA: Borderline left axillary adenopathy stable. UPPER ABDOMEN: Diffuse hepatic metastases again seen. Left periaortic adenopathy just anterior lateral to left adrenal. Again noted. OSSEOUS STRUCTURES: No acute bony abnormality. CT/CT chest wo con IMPRESSION: 1. Marked improvement left upper lobe groundglass opacities since prior CT 12/15/2019. Lower lobe groundglass opacities decreased in confluence. There are persistent acinar opacities left lower lobe. 2. New small right effusion. 3. Bulky mediastinal adenopathy and right hilar adenopathy/mass again noted. 4. Diffuse hepatic metastases. Upper abdominal adenopathy.
[2019-12-20] MEDS: Insulin Lispro 100 UNIT/ML 3 ML VIAL SUBCUT ×5 (00:09→23:40)
[2019-12-20] MEDS: 0.9 % Sodium Chloride Flush 3 ML SYRINGE IVFLUSH ×4 (00:10→23:46)
[2019-12-20] MEDS: HYDROmorphone HCl 2 MG/ML VIAL IVPUSH ×6 (01:52→21:41)
[2019-12-20] MEDS: Heparin Sodium,Porcine 5,000 UNIT/ML VIAL 5000 UNIT SUBCUT ×3 (01:52→16:59)
[2019-12-20] MEDS: propofoL 1,000 MG/100 ML VIAL 25.29 MG IVCONT ×6 (01:58→19:54)
[2019-12-20] MEDS: fentaNYL citrate/NS 1,000 MCG/100 ML PLAST..BAG 20 MCG IVCONT ×2 (03:03→08:14)
[2019-12-20 05:17] LABS: Glucose, Whole Blood 282 mg/dL (60-115)
[2019-12-20 05:35] LABS: Hematocrit 36.1 % (42-52); Mean Corpuscular HGB Conc 33.2 g/dl (31.0-36.0); Mean Corpuscular Volume 99.2 fL (80-98); Mean Platelet Volume 11.7 fL (9.4-12.4); NRBC Pct Auto 0.4 /100WBC (0.0-0.2); Platelet Count 187 X10*3/uL (160-400); Red Blood Count 3.64 X10*6/uL (4.60-5.80); Red Cell Distribution Width 16.9 % (11.0-16.0); White Blood Count 20.1 X10*3/uL (4.8-10.8)
[2019-12-20 05:41] LABS: Base Excess VBG -0.4 mmol/L; HCO3 VBG 24 mmol/L; PCO2 VBG 39 mmhg; PO2 VBG 48 mmhg; pH VBG 7.41 (7.32-7.43)
[2019-12-20 05:42] LABS: Oxygen Saturation VBG 82.7 %
[2019-12-20 06:19] LABS: Alanine Aminotransferase 196 U/L (0-40); Albumin Level 2.8 g/dL (3.5-5.0); Alkaline Phosphatase 684 U/L (39-117); Anion Gap 19 (12-20); Aspartate Amino Transferase 164 U/L (5-37); Bilirubin Total 12.2 mg/dL (0.0-1.0); Blood Urea Nitrogen 54 mg/dL (9-16); Calcium 7.9 mg/dL (8.4-10.2); Carbon Dioxide 20 mmol/L (22-29); Chloride 101 mmol/L (96-108); Creatinine Clr Calc Pharmacy 53.2; Estimated Glomerular Filt Rate 42; Glucose Random 306 mg/dL (60-115); Magnesium 3.2 mg/dL (1.6-2.6); Phosphorus 2.6 mg/dL (2.7-4.5); Sodium 135 mmol/L (135-145); Total Protein 5.8 g/dL (6.5-8.0)
[2019-12-20] MEDS: Albuterol/Iprat 2.5/0.5MG 3 ML AMPUL.NEB INHALE ×4 (07:36→19:51)
[2019-12-20] MEDS: Chlorhexidine Gluc Oral Rinse 15 ML MOUTHWASH BUCCAL ×3 (08:14→21:58)
[2019-12-20 10:52] LABS: Glucose, Whole Blood 278 mg/dL (60-115)
--- NOTE | 2019-12-20 10:58 | PM.CCPN ---
Subjective Subjective Date of Service: 12/20/19 Interval History: Mr. Terry was admitted to the ICU on December 14 because of acute respiratory failure. The patient is a 54-year-old gentleman, homeless, former smoker and daily heroin user, with underlying history of COPD, and hepatitis-C. Admitted on 12/15/2019 with progressive dyspnea, abdominal pain, and weakness for several days. Juandiced on exam. 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 pneumonia. COVID was negative. The patient was initially treated for pneumonia but very shortly developed progressive respiratory distress and hypoxemia requiring transfer to intensive care unit and tracheal intubation and ventilation. Femoral line placed bec of SVC mass effect. Since then he has been sedated. He was treated with Vit K and broad-spectrum antibiotics (Vanco and Zosyn), which were stopped yesterday. 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 Sputum cytology came back negative. I met with Dr. Nuñez and he is looking into chemotherapy. His course has been otherwise notable for marked hyperventilation with spontaneous minute volumes up to 17L, driving his PvCO2 down to the low 30?s, despite fentanyl up to 200ug/hr. We added Dilaudid yesterday, which has helped somewhat. On exam this morning, the patient is well sedated on propofol 50 mcg, and fentanyl 200 mcg. See Vital Signs below. Heart rate is 80, blood pressure 125/62, respiratory rate is 24 on AC/PC rate 18, pressures 22/10, i:e 1:2, 35%, with Vt 580cc, Ve 14L, PIP 33cm, and sat 94%. CVBG this morning shows 7.41/39/0. The patient is grossly jaundiced. There is no jugular venous distention at 30 degrees. Auscultation of the chest shows diffuse moderate insp and exp rhonchi, with a normal expiratory phase. Heart tones not audible. The abdomen shows a 6 finger breath very hard liver, also extending past the midline. The abdomen is otherwise benign. There is 1+ lower extrem and central edema. His arms are increasingly edematous, right>left, altho no clear pitting edema. In his left upper extremity, he has an old scar with marked induration in the upper left forearm just below the antecubital fossa, presumably the remnant of old injection drug abuse. LABORATORY DATA: As below. Notably, WBC up to 20 today. BUN/creatinine are steady at 54/1.7. Tbili up to 12.2. Transaminases steady. MICROBIOLOGY: Sputum g stain showed 4+ polys with 2+ yeast, no bacteria reported. Culture growing yeast. Average u/o is 30-50 cc/hr. IMPRESSION: 1. Small cell lung cancer with widespread metastases, probable SVC compression. Awaiting decision on possible chemotherapy. 2. Diffuse left pulmonary infiltrate seen on CT scan. Very atypical for infectious pneumonia (bacterial, atypical, or viral). COVID is negative. By default then, would likely be cancer. His FiO2 is down compared to admission, but WBC up today. I?m going to repeat his chest CT today to see what?s happening with the left sided infiltrate. (CXR wasn?t helpful in distinguishing cancer vs possible infectious infiltrate.) 3. Acute hypoxemic respiratory failure 2? above. 4. ID: Was treated empirically with Vanco and Zosyn for pneumonia. IMO, he probably did not have pneumonia on admission. We discontinued the Vanco on Dec 17, D/C?d the Zosyn yesterday. Not sure what today?s increased WBC means. Going for a chest CT. 5. Acute kidney injury. Renal indices are steady. He?s clearly developing systemic edema. No clear indication to give him fluids. I?ll try one dose of Lasix to see how his renal indices respond. 6. Hepatic failure with jaundice and coagulopathy. Secondary to liver mets. 7. Hyperglycemia. Likely secondary to hepatic failure. Need to incr his sliding scale insulin dose. 8. Not septic, in my opinion. Discussed with Dr. Nuñez yesterday. He?s looking into chemotherapy. The only avenue to survival is that he would have a rapid response, within days, to chemo for small cell ca. If not, then he won?t survive. Until he has a response to chemo, there?s no point in lightening up his sedation, bec he could never breathe with a minute vol of 14-17L. Otherwise usual supportive care. Prognosis is grave. I spoke to his [Esthela ] at some length yesterday, and outlined the plan for chemo and the prognosis, as noted above. Overall, I?m doubtful that he?ll survive this hospitalization. I anticipate talking further with Dr. Nuñez today and then meeting again with Esthela later today. Critical care time: 60 minutes. Physical Exam Vital Signs: Vital Signs: Vital Signs Temp Pulse Resp BP Pulse Ox 12/20/19 10:46 81 26 H 125/62 94 12/20/19 10:00 81 24 H 131/62 93 12/20/19 08:49 81 25 H 134/61 95 12/20/19 07:40 101.1 F H 76 24 H 133/68 95 12/20/19 07:00 101.3 F H 77 24 H 133/67 94 12/20/19 06:07 81 24 H 146/72 H 94 12/20/19 05:07 84 24 H 145/67 H 95 12/20/19 04:02 101.5 F H 84 24 H 133/63 96 12/20/19 03:05 84 23 H 136/65 96 12/20/19 02:02 83 23 H 129/62 96 12/20/19 01:06 83 24 H 138/69 95 12/20/19 00:11 101.1 F H 83 23 H 139/64 96 12/19/19 23:08 84 23 H 143/69 H 95 12/19/19 22:04 24 H 12/19/19 22:02 81 22 H 138/66 95 12/19/19 21:11 84 23 H 122/68 95 12/19/19 20:07 100.8 F H 85 23 H 135/71 96 12/19/19 19:12 100.8 F H 83 21 H 132/64 96 12/19/19 18:00 80 23 H 130/68 96 12/19/19 17:00 80 24 H 135/65 96 12/19/19 16:00 100.2 F 82 24 H 144/69 H 95 12/19/19 15:00 82 27 H 134/66 96 12/19/19 14:00 100.2 F 77 23 H 132/67 96 12/19/19 13:00 99.9 F 79 30 H 140/68 H 96 12/19/19 11:49 99.7 F 79 27 H 139/67 96 12/19/19 11:00 78 24 H 136/70 95 Body Mass Index 30.8 Objective Data Labs CBC & Chem 7: 12/21/19 05:22 12/21/19 05:22 Labs: Laboratory Results - last 24 hr 12/15/19 12/19/19 12/19/19 11:48 05:44 10:20 WBC RBC Hgb Hct MCV MCH MCHC RDW Plt Count MPV Absolute Nucleated RBC Nucleated RBC % (auto) Smear Path Review SEE NOTE VBG pH VBG pCO2 VBG Oxygen Liters/Min VBG pO2 VBG HCO3 VBG O2 Saturation VBG Base Excess Sodium Potassium Chloride Carbon Dioxide Anion Gap BUN Creatinine Estim Creat Clear Calc Estimated GFR POC Glucose Random Glucose Calcium Phosphorus Magnesium Total Bilirubin AST ALT Alkaline Phosphatase Total Protein Albumin Urine Color HARSHA Urine Appearance CLOUDY Urine pH 6.5 Ur Specific [place] 1.025 Urine Protein 1+ H Urine Glucose (UA) NEG Urine Ketones 5 Urine Blood 2+ H Urine Nitrite NEG Ur Leukocyte Esterase NEG Urine RBC TNTC H Urine WBC 5-9 H Ur Squamous Epith Cells NONE Urine Bacteria NONE Ur L.pneumophila Ag Not Detected 12/19/19 12/19/19 12/19/19 11:30 17:32 23:50 WBC RBC Hgb Hct MCV MCH MCHC RDW Plt Count MPV Absolute Nucleated RBC Nucleated RBC % (auto) Smear Path Review VBG pH VBG pCO2 VBG Oxygen Liters/Min VBG pO2 VBG HCO3 VBG O2 Saturation VBG Base Excess Sodium Potassium Chloride Carbon Dioxide Anion Gap BUN Creatinine Estim Creat Clear Calc Estimated GFR POC Glucose 281 H 327 H 351 H* Random Glucose Calcium Phosphorus Magnesium Total Bilirubin AST ALT Alkaline Phosphatase Total Protein Albumin Urine Color Urine Appearance Urine pH Ur Specific [place] Urine Protein Urine Glucose (UA) Urine Ketones Urine Blood Urine Nitrite Ur Leukocyte Esterase Urine RBC Urine WBC Ur Squamous Epith Cells Urine Bacteria Ur L.pneumophila Ag 12/20/19 12/20/19 12/20/19 05:13 05:24 05:24 WBC 20.1 H RBC 3.64 L Hgb 12.0 L Hct 36.1 L MCV 99.2 H MCH 33.0 MCHC 33.2 RDW 16.9 H Plt Count 187 MPV 11.7 Absolute Nucleated RBC 0.080 H Nucleated RBC % (auto) 0.4 H Smear Path Review VBG pH VBG pCO2 VBG Oxygen Liters/Min VBG pO2 VBG HCO3 VBG O2 Saturation VBG Base Excess Sodium 135 Potassium 5.0 Chloride 101 Carbon Dioxide 20 L Anion Gap 19 BUN 54 H Creatinine 1.69 H Estim Creat Clear Calc 53.2 Estimated GFR 42 POC Glucose 282 H Random Glucose 306 H Calcium 7.9 L Phosphorus 2.6 L Magnesium 3.2 H Total Bilirubin 12.2 H AST 164 H ALT 196 H Alkaline Phosphatase 684 H D Total Protein 5.8 L Albumin 2.8 L Urine Color Urine Appearance Urine pH Ur Specific [place] Urine Protein Urine Glucose (UA) Urine Ketones Urine Blood Urine Nitrite Ur Leukocyte Esterase Urine RBC Urine WBC Ur Squamous Epith Cells Urine Bacteria Ur L.pneumophila Ag 12/20/19 12/20/19 05:24 10:49 WBC RBC Hgb Hct MCV MCH MCHC RDW Plt Count MPV Absolute Nucleated RBC Nucleated RBC % (auto) Smear Path Review VBG pH 7.41 VBG pCO2 39 VBG Oxygen Liters/Min TNP VBG pO2 48 VBG HCO3 24 VBG O2 Saturation 82.7 VBG Base Excess -0.4 Sodium Potassium Chloride Carbon Dioxide Anion Gap BUN Creatinine Estim Creat Clear Calc Estimated GFR POC Glucose 278 H Random Glucose Calcium Phosphorus Magnesium Total Bilirubin AST ALT Alkaline Phosphatase Total Protein Albumin Urine Color Urine Appearance Urine pH Ur Specific [place] Urine Protein Urine Glucose (UA) Urine Ketones Urine Blood Urine Nitrite Ur Leukocyte Esterase Urine RBC Urine WBC Ur Squamous Epith Cells Urine Bacteria Ur L.pneumophila Ag Microbiology Microbiology Results: Microbiology 12/15/19 00:16 Blood - Venous Blood Culture - Final No growth after 5 days. 12/15/19 00:16 Blood - Venous Blood Culture - Final No growth after 5 days. 12/18/19 13:04 Sputum - Induced Gram Stain - Final 12/18/19 13:04 Sputum - Induced Sputum Culture - Preliminary Yeast Progress Note: A&P Time Spent With Patient Time: Total time spent is greater than 50% in coordination of care (as documented) at patient's floor/unit and/or counseling patient: Total time spent with greater than 50% in coordination of care (as documented) at patient's floor/unit and/or counseling patient:: 0 Critical Care Time Critical Care Time (minutes): 60
[2019-12-20] MEDS: HYDROmorphone HCl 2 MG/ML VIAL 4 MG IVPUSH (11:41)
[2019-12-20] MEDS: Furosemide 40 MG/4 ML VIAL IVPUSH (11:45)
[2019-12-20] MEDS: fentaNYL citrate/NS 1,000 MCG/100 ML PLAST..BAG 25 MCG IVCONT ×3 (12:58→21:06)
--- NOTE | 2019-12-20 15:09 | MHC.CM.PN ---
Pt remains in ICU: vented and with extremely poor progress per MD. MD has been in daily contact with pt's spouse - awaiting input from oncology: ? of pt being able to tolerate chemo. CM to follow for d/c planning:
[2019-12-20 17:43] LABS: Glucose, Whole Blood 213 mg/dL (60-115)
[2019-12-20 22:57] LABS: Glucose, Whole Blood 211 mg/dL (60-115)
[2019-12-21] VITALS (31 sets, daily range): BP systolic 96–134; BP diastolic 54–74; PULSE 3–95; RESP 22–34; TEMP 38–40.4; O2SAT 91–95; BMI 30.8
[2019-12-21] MEDS: Albuterol/Iprat 2.5/0.5MG 3 ML AMPUL.NEB INHALE ×6 (00:15→20:27)
[2019-12-21] MEDS: propofoL 1,000 MG/100 ML VIAL 25.29 MG IVCONT ×6 (00:33→23:20)
[2019-12-21] MEDS: Heparin Sodium,Porcine 5,000 UNIT/ML VIAL 5000 UNIT SUBCUT ×3 (02:10→19:00)
[2019-12-21] MEDS: fentaNYL citrate/NS 1,000 MCG/100 ML PLAST..BAG 27.5 MCG IVCONT ×7 (02:10→23:20)
[2019-12-21] MEDS: HYDROmorphone HCl 2 MG/ML VIAL IVPUSH ×6 (02:10→21:04)
[2019-12-21 06:12] LABS: Base Excess VBG -2.4 mmol/L; HCO3 VBG 22 mmol/L; Oxygen Saturation VBG 81.6 %; PCO2 VBG 34 mmhg; PO2 VBG 46 mmhg; pH VBG 7.42 (7.32-7.43)
[2019-12-21 06:13] LABS: Hematocrit 35.1 % (42-52); Hemoglobin 11.5 g/dl (14.0-18.0); Mean Corpuscular HGB Conc 32.8 g/dl (31.0-36.0); Mean Corpuscular Volume 100.9 fL (80-98); Mean Platelet Volume 12.3 fL (9.4-12.4); NRBC Pct Auto 0.3 /100WBC (0.0-0.2); Platelet Count 187 X10*3/uL (160-400); Red Blood Count 3.48 X10*6/uL (4.60-5.80); Red Cell Distribution Width 16.8 % (11.0-16.0); White Blood Count 18.3 X10*3/uL (4.8-10.8)
[2019-12-21 06:26] LABS: Alanine Aminotransferase 174 U/L (0-40); Albumin Level 2.6 g/dL (3.5-5.0); Alkaline Phosphatase 661 U/L (39-117); Anion Gap 17 (12-20); Aspartate Amino Transferase 158 U/L (5-37); Bilirubin Total 12.2 mg/dL (0.0-1.0); Blood Urea Nitrogen 62 mg/dL (9-16); Calcium 7.3 mg/dL (8.4-10.2); Carbon Dioxide 21 mmol/L (22-29); Chloride 101 mmol/L (96-108); Creatinine Clr Calc Pharmacy 50.7; Estimated Glomerular Filt Rate 39; Glucose Random 223 mg/dL (60-115); Phosphorus 3.1 mg/dL (2.7-4.5); Potassium 4.7 mmol/l (3.3-5.1); Sodium 134 mmol/L (135-145); Total Protein 5.4 g/dL (6.5-8.0)
[2019-12-21] MEDS: Insulin Lispro 100 UNIT/ML 3 ML VIAL SUBCUT ×4 (06:27→23:38)
[2019-12-21 06:43] LABS: Glucose, Whole Blood 252 mg/dL (60-115)
--- NOTE | 2019-12-21 07:33 | PC.NURSE ---
ASSUMED CARE AT 23:00. PATIENT IS INTUBATED WITH 7.5 ETT, 25 KELVIN UPPER LIP, PC SETTINGS 22; PEEP 10; FIO2 35%; TV IN 500'S; ETCO2 23-25. PATIENT DOSE OVERBREATHE AND HAVE TACHYPNEIC EPISODES WITH ACCESSORY MUSCLE USE. PATIENT GIVEN SCHEDULED DILAUDID PER EMAR, AND IS ALSO ON FENTANYL GTT, UPTITRATED TO 275 FROM 250. THESE WELL POSITIONING SEEM TO BE HELPING BUT NOT RESOLVING TACHYPNEIA, RR 23-32. PATIENT ALSO ON PROPOFOL GTT, WHICH IS AT MAX RATE OF 50. PATIENT IS ESSENTIALLY COMPLETELY NON-RESPONSIVE. PUPILS ARE SLUGGISH AT 2 MM; PATIENT IS WITHOUT COUGH AND WITHOUT GAG; PATIENT IS NOT MOVING EXTREMITIES, BUT MOVES HEAD AND NECK BACK AND FORTH REPEATEDLY AT TIMES. PATIENT ON PROMOTE AT 60 CC/HOUR AND HAS MINIMAL RESIDUALS. PATIENT IS EDEMATOUS: BILAT ARMS PITTING 2+ EDEMA; BILAT HANDS PITTING +4 EDEMA POSITIONED WITH HANDS ABOVE ELBOWS; PITTING EDEMA TO LEGS AND FEET +2. PATIENT HAS BEEN FEBRILE, MD AWARE, TMAX HAS BEEN 101.7, PATIENT HAS ICE PACKS ON BODY PER PA. URINE OUTPUTS TO ELI ABOUT 25-65 CC / HOUR, DARK HRASHA TO TEA COLORED. PATIENT HAS INTACT SCAB AREA TO LEFT ARM. WAS BATHED TWICE.
--- NOTE | 2019-12-21 07:47 | PC.NURSE ---
TRANSFERED TO ICU FROM [facility] [place] [facility] REMOVED, SLIGHTLY REDDENED ANKLES NOTED PRECEDEX DRIP STARTED 1.5MCG/KG/HR STARTED ON ARRIVAL PRESENTLY CALM ALBEIT CONFUSED WANTING TO GO HOME AND SPEAK WITH HER
[2019-12-21] MEDS: Chlorhexidine Gluc Oral Rinse 15 ML MOUTHWASH BUCCAL ×3 (08:34→21:06)
--- NOTE | 2019-12-21 10:05 | MHC.CLN ---
F/U PT CONTINUES WITH PROMOTE AT MAX GOAL RATE 60CC/HR PROVIDES 1440KCALS (2100KCALS WITH SEDATION; 28KCALS/KG), 90G PROTEIN (1.2G/KG), 1208CC FREE WATER FROM FORMULA WATER FLUSHES CURRENTLY D/C R/T LOW Na IF NEEDED; RE-START 300CC FREE WATER FLUSHES Q 6HRS MONITOR LYTES CLOSELY FOLLOWING
[2019-12-21 11:09] LABS: Glucose, Whole Blood 225 mg/dL (60-115)
--- NOTE | 2019-12-21 15:36 | PC.NURSE ---
TEMP MAX 104. 5 - MD AWARE. FAILED SEDATION VACATION - UNRESPONSIVE, OVERBREATHING VENT RR UP TO 38, NO PAIN RESPONSE, ABSENT COUGH AND GAG, FLACCID. PATIENT PLACED BACK ON PROPOFOL AT 50MCG PER MD. SR ON MONITOR, NO ECTOPY, TLC LEFT FEMORAL PATENT. VENT SETTING PC18 PSV 22 PEEP 10 KIV486%. PATIENT AT BEDSIDE FOR MEETING WITH MD - PLAN FOR TERMINAL EXTUBATION FOR TOMORROW 12/21 - NO NEW INTERVENTIONS TO BE DONE PER MD - PATIENT TO BE DNR PER MD - AWAITING DNR ORDER. HANDOFF GIVEN TO SABAS SAGASTUME.
[2019-12-21] MEDS: 0.9 % Sodium Chloride Flush 3 ML SYRINGE IVFLUSH ×2 (15:53→23:20)
--- NOTE | 2019-12-21 17:02 | P.PNHO_ITS ---
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 Interval History Interval history: I have reviewed the case with the oncology town manager, director of nurses and the medical billing service and president of the medical staff. [facility] cannot provide inpatient chemotherapy for a variety of reasons. The above persons will be pleased to speak with the high density finishing operator about this. If a decision is made with the family that we should proceed with antineoplastic therapy and or radiation he should be transferred to [facility]. The have inpatient chemotherapy and can radiate ventilator patients. Review of Systems - Eyes Reports dry eyes - ENT Reports odynophagia - Cardiovascular Reports shortness of breath - Respiratory Reports dyspnea - Gastrointestinal Reports incontinent of stools - Genitourinary Genitourinary: Reports urinary incontinence - Musculoskeletal Reports stiffness - Integumentary/Breasts Skin/Breast: Reports bleeding lesions - Neurologic Reports behavioral changes, Reports weakness - Psychiatric Reports irritability - Endocrine Reports increased urination (unchanged) - Hematologic/Lymphatic Reports other - Allergic/Immunologic Reports other [facility] Medical History: Medical History (Last Updated 12/15/19 @ 04:53 by Abilio Malloy MD) COPD (chronic obstructive pulmonary disease) Hx of hepatitis C Hx of hypertensive heart disease Cognitive capacity: impaired Functional capacity: bed bound Patient : No Family history: reviewed and not pertinent Smoking status: Smoker, status unknown (changed) Second hand tobacco smoke exposure: No Time spent discussing smoking cessation with patient: 3 to 10 minutes Substance use type: does not use, unknown Substance last used: Unknown Alcohol intake frequency: other Last drink: Unknown Housing: house Household members: family service: No Oncology Screenings - Immunizations Influenza Immunization Status: Up To Date Pneumoccocal Immunization Status: Up To Date - ECOG Performance Status ECOG Performance Status: 1 - G8 Geriatric Assessment Change in food intake over past 3 months: Severe decrease in food intake Weight loss during the last 3 months: Weight loss > 3 kg Mobility: Bed or chair bound Neuropsychological problems: No psychological problems (tubated and sedated) Body Mass Index: 23 or greater Patient takes > 3 prescription drugs per day: Yes Patient's assessment of health status compared to others: Not as good Patient age: < 80 G8 Score: 7 G8 Risk Level: High risk for early functional decline and reduced survival. - [place] Frail Scale Patient often feels sad or depressed: Yes Patient experiences incontinence: Yes # Sec for patient to walk 3m distance and return to chair: > 20 sec, or pt unwilling or requires assistance [place] Frail Scale Score: 4 Frailty Level: Not Frail - [place] VTE Risk Cancer Type: Lung Pre-chemo platelet count >= 350,000/uL: Yes Hemoglobin level <10 g/dL or using RBC growth factors: Yes Pre-chemo leukocyte count > 11,000/uL: Yes BMI >=35: No VTE Risk Score:: 4 [place] VTE Risk: High VTE Risk Home Medications and Allergies Current Medications: Current Medications Generic Name Dose Route Start Last Admin Trade Name Freq PRN Reason Stop Dose Admin Albuterol/Ipratropium 3 ml 12/20/19 12:00 12/21/19 15:24 Albuterol/Iprat 2.5/0.5mg 3 Ml Ampul.Neb INHALE 3 ml RQ4H JING Administration Chlorhexidine Gluconate 15 ml 12/15/19 21:00 12/21/19 13:48 Chlorhexidine Gluc Oral Rinse 15 Ml Mouthwash BUCCAL 15 ml TID JING Administration Heparin Sodium (Porcine) 5,000 unit 12/18/19 10:00 12/21/19 11:06 Heparin Sodium,Porcine 5,000 Unit/Ml Vial SUBCUT 5,000 unit Q8H JING Administration Hydromorphone HCl 2 mg 12/19/19 18:00 12/21/19 13:48 Hydromorphone Hcl 2 Mg/Ml Vial IVPUSH 2 mg Q4H JING Administration Propofol 1,000 mg in 100 mls @ 0 mls/hr 12/15/19 15:15 12/21/19 15:53 Diprivan IVCONT 50 mcg/kg/min .Q0M JING 25.29 mls/hr Administration Protocol Per Protocol Fentanyl 1,000 mcg in 100 mls @ 0 mls/hr 12/19/19 18:00 12/21/19 15:52 Sublimaze/Ns IVCONT 275 mcg/hr .Q0M JING 27.5 mls/hr Administration Protocol Per Protocol Insulin Human Lispro 0 unit 12/17/19 12:00 12/21/19 11:06 Insulin Lispro 100 Unit/Ml 3 Ml Vial SUBCUT 8 unit Q6H JING Administration Protocol Omeprazole 40 mg 12/16/19 06:30 12/21/19 06:19 Omeprazole 20 Mg/10 Ml Susp.Recon PO 40 mg DAILY@0630 [facility] Administration Sodium Chloride 3 ml 12/15/19 08:00 12/21/19 15:53 0.9 % Sodium Chloride Flush 3 Ml Syringe IVFLUSH 3 ml QSHIFT JING Administration Home Medications Medication Instructions Recorded Confirmed Type Unobtainable 12/15/19 12/15/19 History Allergies Allergy/AdvReac Type Severity Reaction Status Date / Time No Known Allergies Allergy Verified 12/14/19 23:31 Exam Vital signs: Vital Signs Temp 104.7 F H 12/21/19 16:00 Pulse 94 12/21/19 16:57 Resp 32 H 12/21/19 16:57 BP 132/67 12/21/19 16:57 Pulse Ox 93 12/21/19 16:00 Intake & Output 12/20/19 12/21/19 12/21/19 18:59 06:59 18:59 Intake Total 1230.286 / 2419.105 1128.819 / 2419.105 1124.955 / 1124.955 Output Total 800 / 1244 444 / 1244 450 / 450 Balance 430.286 / 1175.105 684.819 / 1175.105 674.955 / 674.955 Urine Output (Average ml/kg/hr) 0.73 0.40 0.35 Intake: Intake, Tube Feeding Amount 660 / 1320 600 / 1320 600 / 600 Intake, Tube Irrigant Amount 60 / 60 Intake, IV Amount 570.286 / 1099.105 528.819 / 1099.105 464.955 / 464.955 fentaNYL citrate/NS 1,000 mcg 300 / 560.958 260.958 / 560.958 296.25 / 296.25 In 100 ml @ Per Protocol IVCONT .Q0M JING Rx#:[id number] propofoL 1,000 mg In 100 ml @ 270.286 / 538.147 267.861 / 538.147 168.705 / 168.705 Per Protocol IVCONT .Q0M JING Rx #:[id number] Output: Output, Other Amount 60 / 60 Output, Urine Amount (Catheter) 800 / 1244 444 / 1244 390 / 390 Urethral 800 / 1244 444 / 1244 390 / 390 Other: Urine REAL Urine Color DARK HARSHA Harsha Weight 92 kg Weight 92 kg Body Mass Index 30.8 Narrative: debilitated and iintubated - Constitutional Present: obtunded - Routine HEENT Exam Head: Present: atraumatic Eye: Present: conjunctival injection ENT: Present: nares patent - Routine Neck Exam Present: full ROM - Routine Chest/Breast/Axilla Exam Chest wall: Present: tenderness Breast: Present: Normal Exam Axillae: Present: tenderness - Routine Respiratory Exam Present: patient mechanically ventilated - Routine Cardiovascular Exam Cardiovascular: Present: tachycardia - Detailed Cardiovascular Exam: Murmur 2 Location: Present: base Characteristics: Present: changes with maneuver - Routine Abdominal Exam Present: diminished bowel sounds - Routine Rectal Exam Patient deferred: visual exam (real) Prostate: Present: enlargement - Routine Exam Penile: Present: swelling (changed) Scrotal: Present: tenderness - Routine Extremities Exam Present: normal capillary refill - Routine Back/Spine/Pelvis Exam Back/Spine: Present: full ROM Pelvis: Present: buttock tenderness - Routine Skin Exam Present: intact - Routine Neurological Exam Present: CN II-XII intact - Detailed Neurological Exam: Coma Scale Eye Opening: No response (1) Verbal Response: No response (1) Motor Response: Withdraws from pain (4) (intubated) Glascow Coma Scale Total: 6 unchanged - Routine Psychiatric Exam Present: unable to assess (unchanged) Comments: unhanged Data - Labs CBC & Chem 7: 12/21/19 05:22 12/21/19 05:22 Labs: Laboratory Results - last 24 hr 12/20/19 12/20/19 12/21/19 17:40 22:53 05:22 WBC 18.3 H RBC 3.48 L Hgb 11.5 L Hct 35.1 L MCV 100.9 H MCH 33.0 MCHC 32.8 RDW 16.8 H Plt Count 187 MPV 12.3 Absolute Nucleated RBC 0.060 H Nucleated RBC % (auto) 0.3 H VBG pH VBG pCO2 VBG Oxygen Liters/Min VBG pO2 VBG HCO3 VBG O2 Saturation VBG Base Excess Sodium Potassium Chloride Carbon Dioxide Anion Gap BUN Creatinine Estim Creat Clear Calc Estimated GFR POC Glucose 213 H 211 H Random Glucose Calcium Phosphorus Total Bilirubin AST ALT Alkaline Phosphatase Total Protein Albumin 12/21/19 12/21/19 12/21/19 05:22 05:22 06:12 WBC RBC Hgb Hct MCV MCH MCHC RDW Plt Count MPV Absolute Nucleated RBC Nucleated RBC % (auto) VBG pH 7.42 VBG pCO2 34 VBG Oxygen Liters/Min Not Reportable VBG pO2 46 VBG HCO3 22 VBG O2 Saturation 81.6 VBG Base Excess -2.4 Sodium 134 L Potassium 4.7 Chloride 101 Carbon Dioxide 21 L Anion Gap 17 BUN 62 H Creatinine 1.79 H Estim Creat Clear Calc 50.7 Estimated GFR 39 POC Glucose 252 H Random Glucose 223 H Calcium 7.3 L Phosphorus 3.1 Total Bilirubin 12.2 H AST 158 H ALT 174 H Alkaline Phosphatase 661 H Total Protein 5.4 L Albumin 2.6 L 12/21/19 11:01 WBC RBC Hgb Hct MCV MCH MCHC RDW Plt Count MPV Absolute Nucleated RBC Nucleated RBC % (auto) VBG pH VBG pCO2 VBG Oxygen Liters/Min VBG pO2 VBG HCO3 VBG O2 Saturation VBG Base Excess Sodium Potassium Chloride Carbon Dioxide Anion Gap BUN Creatinine Estim Creat Clear Calc Estimated GFR POC Glucose 225 H Random Glucose Calcium Phosphorus Total Bilirubin AST ALT Alkaline Phosphatase Total Protein Albumin Progress Note: A/P (1) Lung malignancy Start date: 12/23/19 Status: Acute Assessment and plan: He is unchanged. If the family desires treatment he should be transferred to a facility that can provide that. (2) Metastatic lung cancer (metastasis from lung to other site) Start date: 12/23/19 Status: Acute Assessment and plan: will assess family wishes - Time Spent With Patient Total time spent is greater than 50% in coordination of care (as documented) at patient's floor/unit and/or counseling patient: 15 - 24 minutes (unchanged)
[2019-12-21 18:55] LABS: Glucose, Whole Blood 270 mg/dL (60-115)
--- NOTE | 2019-12-21 20:33 | PM.CCPN ---
Subjective Subjective Date of Service: 12/21/19 Interval History: Mr. Terry was admitted to the ICU on December 14 because of acute respiratory failure. The patient is a 54-year-old gentleman, homeless, former smoker and daily heroin user, with underlying history of COPD, and hepatitis-C. Admitted on 12/15/2019 with progressive dyspnea, abdominal pain, and weakness for several days. Juandiced on exam. 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 pneumonia. COVID was negative. The patient was initially treated for pneumonia but very shortly developed progressive respiratory distress and hypoxemia requiring transfer to intensive care unit and tracheal intubation and ventilation. Femoral line placed bec of SVC mass effect. Since then he has been sedated. He was treated with Vit K and broad-spectrum antibiotics (Vanco and Zosyn), which were stopped yesterday. 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 Sputum cytology came back negative. His course has been otherwise notable for marked hyperventilation with spontaneous minute volumes up to 17L, driving his PvCO2 down to the low 30?s, despite fentanyl up to 200ug/hr. We added Dilaudid, which has helped somewhat. I spoke with Dr. Nuñez yesterday, and after extensive investigation he let me know that we are unable to give in-patient chemotherapy here. The patient would have to be transferred to [facility]. I spoke with the critical care fellow at [facility] and then the attending critical care physician. That asked me to make sure that the patient's understood fully the gravity and extent of the management task ahead were we to pursue chemotherapy for this kind of critically ill, ventilated patient. I spoke further with Dr. Nuñez, and he was not enthusiastic about the chances of success (i.e. transferring him to a tertiary hospital, giving him chemotherapy, and having a successful result that would allow extubation and getting the patient back home). I then spoke with the patient's last night and she told me that he would not likely want any of that. I told her we would discuss it further today. Early this morning, we turned the propofol off. After hours, he never woke up, he was never interactive, he was just tossing his head side to side. On the fentanyl at 275 mcg, RR was 30+ on AC/PC rate 18, pressures 22/10, i:e 1:2, 35%, with Vt 500cc, Ve 14-16L, PIP 32cm, and sat 93%. CVBG this morning showed 7.42/34/-2. The patient is grossly jaundiced. There is no jugular venous distention at 30 degrees. Auscultation of the chest shows diffuse light insp and exp rhonchi, with a normal expiratory phase. Heart tones not audible. The abdomen shows a 6 finger breath very hard liver, also extending past the midline. The abdomen is otherwise benign. There is at least 1+ lower extrem and central edema. His arms are increasingly edematous, right>left, altho no clear pitting edema. In his left upper extremity, he has an old scar with marked induration in the upper left forearm just below the antecubital fossa, presumably the remnant of old injection drug abuse. LABORATORY DATA: As below. Notably, BUN/creatinine are up to 62/1.8. Tbili steady at 12.2. MICROBIOLOGY: No new cxs. Average u/o is 30-40 cc/hr. IMPRESSION: 1. Small cell lung cancer with widespread metastases, probable SVC compression. Very grave prognosis. 2. Diffuse left pulmonary infiltrate seen on CT scan. CT scan yesterday showed significant resolution of these left-sided infiltrates since admission, suggesting that they were not, in fact, cancerous. Etiology unclear (very atypical for any kind of infectious pneumonia). 3. Acute hypoxemic respiratory failure 2? above. 4. ID: Was treated empirically with Vanco and Zosyn for pneumonia. IMO, he probably did not have pneumonia on admission. We discontinued the Vanco on Dec 17, D/C?d the Zosyn yesterday. 5. Acute kidney injury. Renal indices are now increased, with increasing edema. Bottom line is this is just more indication of progressive multiorgan failure. 6. Hepatic failure with jaundice and coagulopathy. Secondary to liver mets. 7. Hyperglycemia. Likely secondary to hepatic failure. We increased his sliding scale insulin dose. 8. Not septic, in my opinion. I discussed the patient's situation again with Dr. Nuñez today and then again at length with the patient's . She does not think he would want to go through the very arduous road that lies ahead were we to consider chemotherapy. We discussed extubation to comfort measures. She wants to go that route, but wasn?t ready to do it today. We left it that she?ll come in tomorrow morning and we?ll do it then. Otherwise usual supportive care. I wrote DNR orders. Critical care time: 90 minutes. Physical Exam Vital Signs: Vital Signs: Vital Signs Temp Pulse Resp BP Pulse Ox 12/21/19 20:00 104.5 F H 94 31 H 113/66 94 12/21/19 19:00 93 28 H 125/64 94 12/21/19 18:00 94 33 H 119/67 12/21/19 16:57 94 32 H 132/67 12/21/19 16:00 104.7 F H 92 32 H 129/63 93 12/21/19 15:00 93 31 H 123/63 94 12/21/19 13:45 104.7 F H 92 32 H 125/54 L 93 12/21/19 13:00 93 34 H 134/62 93 12/21/19 12:00 104.2 F H 95 33 H 116/60 93 12/21/19 10:59 92 22 H 108/66 93 12/21/19 10:00 103.5 F H 94 33 H 96/63 94 12/21/19 09:00 92 33 H 120/69 94 12/21/19 08:00 102.4 F H 91 33 H 128/69 94 12/21/19 07:00 102.0 F H 91 34 H 126/61 94 12/21/19 06:00 101.5 F H 87 29 H 132/60 95 12/21/19 05:04 25 H 12/21/19 05:00 101.5 F H 85 22 H 132/58 L 94 12/21/19 03:00 100.6 F H 24 L 24 H 132/64 94 12/21/19 02:10 25 H 12/21/19 02:00 100.4 F 83 25 H 126/60 93 12/21/19 01:00 100.4 F 84 29 H 127/65 95 12/20/19 22:00 102.2 F H 88 26 H 116/65 93 12/20/19 21:04 102.9 F H 89 32 H 128/71 92 Body Mass Index 30.8 Objective Data Labs CBC & Chem 7: 12/21/19 05:22 12/21/19 05:22 Labs: Laboratory Results - last 24 hr 12/20/19 12/21/19 12/21/19 22:53 05:22 05:22 WBC 18.3 H RBC 3.48 L Hgb 11.5 L Hct 35.1 L MCV 100.9 H MCH 33.0 MCHC 32.8 RDW 16.8 H Plt Count 187 MPV 12.3 Absolute Nucleated RBC 0.060 H Nucleated RBC % (auto) 0.3 H VBG pH VBG pCO2 VBG Oxygen Liters/Min VBG pO2 VBG HCO3 VBG O2 Saturation VBG Base Excess Sodium 134 L Potassium 4.7 Chloride 101 Carbon Dioxide 21 L Anion Gap 17 BUN 62 H Creatinine 1.79 H Estim Creat Clear Calc 50.7 Estimated GFR 39 POC Glucose 211 H Random Glucose 223 H Calcium 7.3 L Phosphorus 3.1 Total Bilirubin 12.2 H AST 158 H ALT 174 H Alkaline Phosphatase 661 H Total Protein 5.4 L Albumin 2.6 L 12/21/19 12/21/19 12/21/19 05:22 06:12 11:01 WBC RBC Hgb Hct MCV MCH MCHC RDW Plt Count MPV Absolute Nucleated RBC Nucleated RBC % (auto) VBG pH 7.42 VBG pCO2 34 VBG Oxygen Liters/Min Not Reportable VBG pO2 46 VBG HCO3 22 VBG O2 Saturation 81.6 VBG Base Excess -2.4 Sodium Potassium Chloride Carbon Dioxide Anion Gap BUN Creatinine Estim Creat Clear Calc Estimated GFR POC Glucose 252 H 225 H Random Glucose Calcium Phosphorus Total Bilirubin AST ALT Alkaline Phosphatase Total Protein Albumin 12/21/19 18:53 WBC RBC Hgb Hct MCV MCH MCHC RDW Plt Count MPV Absolute Nucleated RBC Nucleated RBC % (auto) VBG pH VBG pCO2 VBG Oxygen Liters/Min VBG pO2 VBG HCO3 VBG O2 Saturation VBG Base Excess Sodium Potassium Chloride Carbon Dioxide Anion Gap BUN Creatinine Estim Creat Clear Calc Estimated GFR POC Glucose 270 H Random Glucose Calcium Phosphorus Total Bilirubin AST ALT Alkaline Phosphatase Total Protein Albumin Microbiology Microbiology Results: Microbiology 12/19/19 10:20 Urine [place] Urine Culture - Final No growth. 12/18/19 13:04 Sputum - Induced Gram Stain - Final 12/18/19 13:04 Sputum - Induced Sputum Culture - Preliminary Yeast 12/15/19 00:16 Blood - Venous Blood Culture - Final No growth after 5 days. 12/15/19 00:16 Blood - Venous Blood Culture - Final No growth after 5 days. Progress Note: A&P Time Spent With Patient Time: Total time spent is greater than 50% in coordination of care (as documented) at patient's floor/unit and/or counseling patient: Total time spent with greater than 50% in coordination of care (as documented) at patient's floor/unit and/or counseling patient:: 0 Critical Care Time Critical Care Time (minutes): 90
[2019-12-21 23:30] LABS: Glucose, Whole Blood 159 mg/dL (60-115)
[2019-12-22] VITALS (20 sets, daily range): BP systolic 102–131; BP diastolic 48–59; PULSE 84–92; RESP 20–30; TEMP 39.8–40.2; O2SAT 92–94; BMI 30.8
[2019-12-22] MEDS: Albuterol/Iprat 2.5/0.5MG 3 ML AMPUL.NEB INHALE ×4 (00:11→11:04)
[2019-12-22] MEDS: Heparin Sodium,Porcine 5,000 UNIT/ML VIAL 5000 UNIT SUBCUT ×2 (02:37→09:30)
[2019-12-22] MEDS: HYDROmorphone HCl 2 MG/ML VIAL IVPUSH ×5 (02:39→12:38)
[2019-12-22] MEDS: fentaNYL citrate/NS 1,000 MCG/100 ML PLAST..BAG 27.5 MCG IVCONT ×3 (03:12→10:36)
[2019-12-22] MEDS: propofoL 1,000 MG/100 ML VIAL 25.29 MG IVCONT ×3 (03:12→10:43)
--- NOTE | 2019-12-22 05:12 | PC.NURSE ---
CARE ASSUMED 23;15...REMAINS TUBED/VENTED...PCV: AC 18/IP22/FIO2 35%/PEEP 10...RR 26-30...Ve 14-15 L/M..SAO2 93-94%..CONTINUES PROPOFOL/FENTANYL/DILAUDID PER EMAR...WEAKLY MOVES HEAD SIDE TO SIDE BUT NOT TO COMMAND...NO EYE RESPONSE--WEAK GAG/COUGH...EXTREMETIES FLACCID...SCLERAL EDEMA AND GENERALIZED EDEMA REMAIN...JAUNDICED...ELI ORANGE-HARSHA URINE APPROX 40-45 CC/HR...NSR..NO ECTOPY...
[2019-12-22 05:33] LABS: Glucose, Whole Blood 211 mg/dL (60-115)
[2019-12-22] MEDS: Insulin Lispro 100 UNIT/ML 3 ML VIAL SUBCUT ×2 (05:42→11:58)
[2019-12-22] MEDS: 0.9 % Sodium Chloride Flush 3 ML SYRINGE IVFLUSH (07:37)
[2019-12-22] MEDS: Chlorhexidine Gluc Oral Rinse 15 ML MOUTHWASH BUCCAL (07:37)
--- NOTE | 2019-12-22 08:54 | PC.NURSE ---
[facility] CONTACTED AND PT DENIED FOR ORGAN AND TISSUE DONATION. PER KEYLA FROM [facility] WE DO NOT NEED TO CALL BACK WITH TOD. .
--- NOTE | 2019-12-22 10:56 | PM.CCPN ---
Subjective Subjective Date of Service: 12/22/19 Interval History: Mr. Terry was admitted to the ICU on December 14 because of acute respiratory failure. The patient is a 54-year-old gentleman, homeless, former smoker and daily heroin user, with underlying history of COPD, and hepatitis-C. Admitted on 12/15/2019 with progressive dyspnea, abdominal pain, and weakness for several days. Juandiced on exam. 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 pneumonia. COVID was negative. The patient was initially treated for pneumonia but very shortly developed progressive respiratory distress and hypoxemia requiring transfer to intensive care unit and tracheal intubation and ventilation. Femoral line placed bec of SVC mass effect. Since then he has been sedated. He was treated with Vit K and broad-spectrum antibiotics (Vanco and Zosyn), which were stopped Dec 18. 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 Sputum cytology came back negative. His course has been otherwise notable for marked hyperventilation with spontaneous minute volumes up to 17L, driving his PvCO2 down to the low 30?s, despite fentanyl up to 200ug/hr. We added Dilaudid, which has helped somewhat. The patient?s situation was discussed with Dr. Nuñez yesterday. After extensive investigation he let me know that we are unable to give in-patient chemotherapy here. The patient would have to be transferred to [facility] or [facility]. I spoke with the critical care fellow at [facility] and then the attending critical care physician. That asked me to make sure that the patient's understood fully the gravity and extent of the management task ahead were we to pursue chemotherapy for this kind of critically ill, ventilated patient. I spoke further with Dr. Nuñez, and he was not enthusiastic about the chances of success (i.e. transferring him to a tertiary hospital, giving him chemotherapy, and having a successful result that would allow extubation and getting the patient back home). I then spoke with the patient's on Dec 19 and she told me that he would not likely want any of that. We discuss that all further yesterday and she made the decision that we would transition him to comfort care today. On exam this morning, on propofol 50ug and fentanyl 275ug, he?s noninteractive. His spont resp effort is much less than yesterday, and he has the look of a man who?s clearly fading away and dying. See Vital Signs below. HR is 87, BP is 106/48. On AC/PC rate 18, 22/10, i:e 1:2, 35%, RR is 25, with Vt 600cc, Ve 15L, PIP 32cm, and sat 94%. The patient is grossly jaundiced. There is no jugular venous distention at 30 degrees. Auscultation of the chest shows diffuse light insp and exp rhonchi, with a normal expiratory phase. Heart tones not audible. The abdomen shows a 6 finger breath very hard liver, also extending past the midline. The abdomen is otherwise benign. There is at least 1+ lower extrem and central edema. His arms are increasingly edematous, right>left. In his left upper extremity, he has an old scar with marked induration in the upper left forearm just below the antecubital fossa, presumably the remnant of old injection drug abuse. LABORATORY DATA: As below. No new labs this morning MICROBIOLOGY: No new cxs. Average u/o is >40 cc/hr. IMPRESSION: 1. Small cell lung cancer with widespread metastases, probable SVC compression. Very grave prognosis. 2. Diffuse left pulmonary infiltrate seen on admission CT scan. CT scan Dec 19 showed significant resolution of these left-sided infiltrates since admission, suggesting that they were not, in fact, cancerous. Etiology unclear (very atypical for any kind of infectious pneumonia). 3. Acute hypoxemic respiratory failure 2? above. 4. ID: Was treated empirically with Vanco and Zosyn for pneumonia. IMO, he probably did not have pneumonia on admission. We discontinued the Vanco on Dec 17, D/C?d the Zosyn on Dec 18. 5. Acute kidney injury. Renal indices yesterday were significantly increased, with increasing edema. Bottom line is this is just more indication of progressive multiorgan failure. 6. Hepatic failure with jaundice and coagulopathy. Secondary to liver mets. 7. Hyperglycemia. Likely secondary to hepatic failure. We increased his sliding scale insulin dose. 8. Not septic, in my opinion. There is little chance for reasonable recovery from the patient?s current situation. I spoke to Armando's this morning. She came in and we talked for a while and she made the decision to proceed with extubation. The patient was extubated without incident and he's breathing easy with the fentanyl infusion. ADDENDUM: The patient's Sat deteriorated rapidly and he became asystolic shortly thereafter, at 13:03, with his at the bedside. Critical care time: 60+ minutes. Physical Exam Vital Signs: Vital Signs: Vital Signs Temp Pulse Resp BP Pulse Ox 12/22/19 10:00 104.0 F H 88 20 106/48 L 94 12/22/19 09:30 28 H 12/22/19 09:00 103.8 F H 87 28 H 116/52 L 94 12/22/19 08:00 104.0 F H 86 28 H 112/51 L 94 12/22/19 06:59 104.2 F H 89 21 H 121/56 L 93 12/22/19 05:55 104.2 F H 86 26 H 128/53 L 93 12/22/19 05:00 104.0 F H 90 26 H 130/58 L 94 12/22/19 04:00 104.0 F H 90 26 H 122/57 L 94 12/22/19 03:00 104.0 F H 90 26 H 113/50 L 94 12/22/19 01:00 104 F H 92 30 H 107/48 L 93 12/22/19 00:00 104.4 F H 92 26 H 102/51 L 93 12/21/19 23:00 92 30 H 112/74 12/21/19 22:00 104.7 F H 91 29 H 120/64 91 L 12/21/19 20:59 104.5 F H 92 30 H 118/66 92 12/21/19 20:54 93 31 H 118/66 93 12/21/19 20:00 104.5 F H 95 31 H 114/60 94 12/21/19 19:00 93 28 H 125/64 94 12/21/19 18:00 94 33 H 119/67 12/21/19 16:57 94 32 H 132/67 12/21/19 16:00 104.7 F H 92 32 H 129/63 93 12/21/19 15:00 93 31 H 123/63 94 12/21/19 13:45 104.7 F H 92 32 H 125/54 L 93 12/21/19 13:00 93 34 H 134/62 93 12/21/19 12:00 104.2 F H 95 33 H 116/60 93 12/21/19 10:59 92 22 H 108/66 93 Body Mass Index 30.8 Objective Data Labs CBC & Chem 7: 12/21/19 05:22 12/21/19 05:22 Labs: Laboratory Results - last 24 hr 12/21/19 12/21/19 12/21/19 11:01 18:53 23:26 POC Glucose 225 H 270 H 159 H 12/22/19 05:29 POC Glucose 211 H Microbiology Microbiology Results: Microbiology 12/18/19 13:04 Sputum - Induced Gram Stain - Final 12/18/19 13:04 Sputum - Induced Sputum Culture - Final Shivani glabrata 12/19/19 10:20 Urine [place] Urine Culture - Final No growth. 12/15/19 00:16 Blood - Venous Blood Culture - Final No growth after 5 days. 12/15/19 00:16 Blood - Venous Blood Culture - Final No growth after 5 days. Progress Note: A&P Time Spent With Patient Time: Total time spent is greater than 50% in coordination of care (as documented) at patient's floor/unit and/or counseling patient: Total time spent with greater than 50% in coordination of care (as documented) at patient's floor/unit and/or counseling patient:: 0 Critical Care Time Critical Care Time (minutes): 60
[2019-12-22 11:58] LABS: Glucose, Whole Blood 225 mg/dL (60-115)
--- NOTE | 2019-12-22 13:24 | PC.NURSE ---
ARRIVED FOR TERMINAL EXTUBATION. EXTUBATED AT 1246. TOD 1303. REQUESTED A LOCK OF HAIR, TOOK HOME PATIENTS BELONGINGS. WILL CALL BACK WITH A HOME.
--- NOTE | 2019-12-22 13:52 | PM.DDS ---
Discharge Sum: Prov Provider Primary care physician: Unknown Physician Consults: 12/15/19 05:34 Consult to Physician Routine Consulting Provider: Adebayo Balbuena Reason for consultation: metastatic ds Has provider been notified: No 12/15/19 11:06 Consult to Pulmonology Routine Consulting [place] [facility] [place] [facility] Reason for consultation: bronchoscopy for biopsy for large hilar mass 12/16/19 08:31 Consult to Gastroenterology Routine Consulting Provider: Tati Barrios Reason for consultation: elevated LFTs primarily cholestatic, hx HCV, mets to liver Discharge Sum: Diag Contributing Factors (1) Lung malignancy: (2) Metastatic lung cancer (metastasis from lung to other site): Discharge Sum: Summary Date and Time Date of admission: 12/15/19 04:06 Summary Details: NOTE DISCHARGE DIAGNOSES: 1. Small cell lung cancer with widespread metastases, probable SVC compression. 2. Diffuse left pulmonary infiltrate. 3. Acute hypoxemic respiratory failure. 4. 5. Acute kidney injury. 5. Hepatic failure. 6. Coagulopathy. 7. Hyperglycemia. Mr. Terry was a 54-year-old gentleman with a past medical history of smoking and heroin use, COPD, and hepatitis-C. He was admitted to [facility] on 12/15/2019 with progressive dyspnea, abdominal pain, and weakness for several days. He was jaundiced on exam. 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 COVID was negative. The patient was admitted and initially treated for pneumonia but very shortly developed progressive respiratory distress and hypoxemia requiring transfer to intensive care unit and tracheal intubation and ventilation. He was sedated and treated with Vit K and broad-spectrum antibiotics. 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 His course was otherwise notable for marked hyperventilation with spontaneous minute volumes up to 17L, driving his PvCO2 down to the low 30?s, despite high-dose fentanyl infusion. We added Dilaudid, which helped somewhat. The patient?s situation was discussed at length with Dr. Nuñez. After extensive investigation he determined that we are unable to give in-patient chemotherapy here at [facility]. The patient would have to be transferred to [facility] or [facility]. I spoke with the attending critical care physician at [facility]. They asked me to make sure that the patient's understood fully the gravity and extent of the management task ahead were we to pursue chemotherapy for this kind of critically ill, ventilated patient. I spoke further with Dr. Nuñez, and he was not enthusiastic about the chances of success (i.e. transferring him to a tertiary hospital, giving him chemotherapy, and having a successful result that would allow extubation and getting the patient back home). I then spoke with the patient's and it was her opinion that he would not likely want any of that. After multiple further conversations, it was her decision to transition to comfort care today. The patient was made comfortable on fentanyl and propofol infusions. The endotracheal tube was removed. The patient not long after that, on December 21 at 13:03. Additional Data Attending physician: Neil Mckeon
--- NOTE | 2020-01-03 13:35 | PC.NURSE ---
This RN contacted Esthela, and left message at this time to see if home has been decided. Left contact information for her to call back.
== END 2019-12-22 13:03 | disposition expired | DRG 130 ==
LOC: HO.ED 12-15 03:34 → HO.IMC 12-15 04:55 → HO.ICU 12-15 14:11 → HO.IMC 12-19 15:50 → HO.ICU 12-19 16:28
PROVIDERS: Family Medicine; Internal Medicine Pulmonary Disease; Physician Assistant Medical; Registered Nurse Community Health; Admitting Provider Internal Medicine; Emergency Provider Student in an Organized Health Care Education/Training Program; Visit Provider Anesthesiology
DX: C34.01 Malignant neoplasm of right main bronchus (principal); R65.20 Severe sepsis without septic shock; N17.9 Acute kidney failure, unspecified; C78.7 Secondary malignant neoplasm of liver and intrahepatic bile duct; C78.02 Secondary malignant neoplasm of left lung; D68.9 Coagulation defect, unspecified; R64 Cachexia; J96.01 Acute respiratory failure with hypoxia; K75.89 Other specified inflammatory liver diseases; J44.9 Chronic obstructive pulmonary disease, unspecified; F11.10 Opioid abuse, uncomplicated; Z20.828 Contact with and (suspected) exposure to other viral communicable diseases; Z68.30 Body mass index [BMI] 30.0-30.9, adult; Z59.0 Homelessness; Z87.891 Personal history of nicotine dependence
CPT/HCPCS: 36415; 36600; 47000; 71045; 71046; 71250; 71260; 74177; 76705; 76942; 80048; 80053; 80076; 80202; 81001; 81003; 82248; 82803; 82947; 83605; 83690; 83735; 83880; 84100; 84145; 84300; 85007; 85025; 85027; 85060; 85610; 87040; 87070; 87086; 87106; 87205; 87449; 87635; 87899; 88112; 88305; 88307; 88341; 88342; 93005; 93970; 94003; 94660; 96365; 96375; 99285; J1170; J1940; J2250; J2270; J2405; J2920; J2930; J3010; J3430; P9047